=== PATIENT | female | born 1960 | race Caucasian/White ===

== ENCOUNTER 2023-06-12 08:22 | Outpatient (RCR) | payer BC, SELFPAY | END 2023-08-14 16:38 | disposition home or self-care (01) | LOC: PT 08:22 | PROVIDERS: PCP Nurse Practitioner; Visit Provider Nurse Practitioner | DX: M25.512 Pain in left shoulder (principal); M54.2 Cervicalgia | CPT/HCPCS: 97010; 97014; 97110; 97140; 97163 ==

== ENCOUNTER 2024-04-27 14:35 | Outpatient (OUT) | payer BC, SELFPAY ==
--- NOTE | 2024-04-27 | XR_ITS ---
The [address] [address] Patient Name: MEGHA CACERES MRN: [id number] date: 1960 Sex: F Assigned Patient Location: Current Patient Location: Accession/Order Number: [id number] Exam Date: 04/27/2024 14:39 Report Date: 04/27/2024 15:19 At the request of: AYANA FERRARO Procedure: XR foot RT min 3V PROCEDURE: XR foot RT min 3V COMPARISON: 11/22/2021 HISTORY: RIGHT FOOT PAIN FINDINGS: BONES:February 01 metatarsal-phalangeal joint fusion with no mechanical failure. Remote osteotomy and screw head of the second metatarsal. Moderate enthesopathic spurring Achilles and plantar calcaneus SOFT TISSUES:Negative. No visible soft tissue swelling. EFFUSION:None visible. OTHER: Negative. XR/XR foot RT min 3V IMPRESSION: Stable first metatarsal-phalangeal joint fusion Electronically authenticated by: ELIZABETH HENSLEY Date: 04/27/2024 15:19
--- OUTSIDE RECORDS SUMMARY | 2024-04-27 14:48 | XMS_ITS | CCD ---
Author Organization [facility] Care Team Providers Care Client Service Consultant Name Role Phone GUSTAVO, CHRISTOPHER W Unavailable Unavailab le GUSTAVO, CHRISTOPHER W Unavailable Unavailab le GUSTAVO, CHRISTOPHER W Unavailable Unavailab le GUSTAVO, CHRISTOPHER W Unavailable Unavailab le GUSTAVO, CHRISTOPHER W Unavailable Unavailab le GUSTAVO, CHRISTOPHER W Unavailable Unavailab le GUSTAVO, CHRISTOPHER W Unavailable Unavailab le GUSTAVO, CHRISTOPHER W Unavailable Unavailab le GUSTAVO, CHRISTOPHER W Unavailable Unavailab le GUSTAVO, CHRISTOPHER W Unavailable Unavailab le GUSTAVO, CHRISTOPHER W Unavailable Unavailab le GUSTAVO, CHRISTOPHER W Unavailable Unavailab le GUSTAVO, CHRISTOPHER W Unavailable Unavailab le GUSTAVO, CHRISTOPHER W Unavailable Unavailab le REAL, DR DELON Landry Admitting Unavailable ADDIE, DR DELON Landry Attending Unavailable ADDIE, DR DELON Landry Consulting Unavailable ADDIE, DR DELON Landry Primary Care Unavailable ADDIE, DR DELON Landry Admitting Unavailable ADDIE, DR DELON Landry Attending Unavailable ADDIE, DR DELON Landry Consulting Unavailable ADDIE, DR DELON Landry Primary Care Unavailable ADDIE, DR DELON Landry Primary Care Unavailable AYANA FERRARO Attending Unavailable SANBORN, DR ELIZABETH Castro Consulting Unavailable AYANA FERRARO Admitting Unavailable AYANA FERRARO Consulting Unavailable ADDIE, DR DELON Landry Primary Care Unavailable LAQUITA PITT Admitting Unavailable LAQUITA PITT Attending Unavailable ADDIE, DR DEOLN Landry Primary Care Unavailable JEANE, DR OLGA Bishop Admitting Unavailable JEANE, DR OLGA Bishop Attending Unavailable TESS ORTEGA Consulting Unavailable ADDIE, DR DELON Landry Primary Care Unavailable ADDIE, DR DELON Landry Admitting Unavailable ADDIE, DR DELON Landry Attending Unavailable ADDIE, DR DELON Landry Consulting Unavailable SISSY, DR SKYLAR Bishop Consulting Unavailable Clarisa Torres Attending Unavailable BrianClarisa lopez Attending Unavailable Allergies Allergy Classification Reported Allergen(s) Allergy Type Date of Onset Reaction(s) Facility (1 source) sulfamethoxazole / trimethoprim; Translations: [SULFAMETHOXAZOLE-TR IMETHOPRIM] Drug Allergy 5 [facility] Repository (2 sources) Sulfamethoxazole / Trimethoprim; Translations: [Bactrim] Drug Allergy 3 [facility] Repository Problems Active Problems Problem Classification Problem Date Documented Da te Episodic/Chronic Acquired foot deformities (2 sources) Hallux valgus (acquired), right foot; Translations: [Other hammer toe(s) (acquired), right foot] Onset: 01-14-2018 Chronic Other acquired deformities (1 source) Contracture, unspecified joint; Translations: [Contracture, unspecified joint] Onset: 01-14-2018 Chronic Other aftercare (1 source) Encounter for follow-up examination after completed treatment for conditions other than malignant neoplasm; Translations: [Encounter for follow-up examination after completed treatment for conditions other than malignant neoplasm] Onset: 05-15-2018 Episodic Other connective tissue disease (4 sources) Other muscle spasm; Translations: [OTHER MUSCLE SPASM] Onset: 08-28-2022 Episodic Unclassified (1 source) Pain, unspecified; Translations: [Pain, unspecified] Onset: 01-06-2018 Unclassified (1 source) Unknown / UNK(Unknown) Onset: 03-26-2018 Unclassified (3 sources) CONTACT W/AND (SUSP) EXPOS COVID-19; Translations: [CONTACT W/AND (SUSP) EXPOS COVID-19] Onset: 03-11-2022 Past or Other Problems Problem Classification Problem Date Documented Da te Episodic/Chronic Other acquired deformities (1 source) Unspecified acquired deformity of right lower leg; Translations: [Unspecified acquired deformity of right lower leg] Onset: 01-14-2018 Episodic Other connective tissue disease (1 source) Pain in right foot; Translations: [PAIN IN RIGHT FOOT] Onset: 11-26-2021 Episodic Other connective tissue disease (1 source) Pain in left foot; Translations: [PAIN IN LEFT FOOT] Onset: 11-26-2021 Episodic Other non-traumatic joint disorders (4 sources) Pain in right ankle and joints of right foot; Translations: [PAIN IN RIGHT ANKLE] Onset: 11-22-2021 Episodic Other non-traumatic joint disorders (1 source) Pain in left ankle and joints of left foot; Translations: [PAIN IN LEFT ANKLE] Onset: 11-26-2021 Episodic Other screening for suspected conditions (not mental disorders or infectious disease) (4 sources) Encounter for screening mammogram for malignant neoplasm of breast; Translations: [ENC SCR MAMMO MALIG NEOPLASM BREAST] Onset: 07-09-2022 Episodic Unclassified (1 source) CONTACT W/AND (SUSP) EXPOS COVID-19; Translations: [CONTACT W/AND (SUSP) EXPOS COVID-19] Onset: 03-08-2022 Results Test Name Value Interpretation Reference Range Facility Retail - Clinical Noteon Retail - Clinical Note [id number]#1.00TIFF Na[facility] Ambulatory Visit Summaryon 0 02-03-2024 Ambulatory Visit Summary LESA TORREZ :1960 Visit Date:02/03/2024 Ambulatory Visit Instructions Your Diagnosis Folliculitis BMI 24.0-24.9, adult Non-smoker Your Care Team Attending Physician - Clarisa Lane Primary Care Physician - Clarisa Lane This Is Your Medications List bisoprolol-hydrochlorothiazide (bisoprolol-hydrochlorothiazide 10 mg-6.25 mg Tab) cephalexin (Keflex 500 mg Cap) cetirizine (Zyrtec) polyethylene glycol 3350 (MiraLax) rizatriptan (rizatriptan 10 mg Dis Tab) semaglutide (Ozempic 8 mg/3 mL (2 mg dose) subcutaneous solution) Procedures Performed Foot injury, Hand repair, Laparoscopic cholecystostomy, Surgery. Discharge Vitals Heart Rate (Peripheral) 80 Respiratory Rate 18 Blood Pressure 104/78 Height 153.0 cm Height 60 in Weight 57.2 kg Weight 125.84 lb BMI 24.44 Medications What How Much When Why Instructions New cephalexin (Keflex 500 mg Cap) 1 Capsules By Mouth 2 times a day Folliculitis BMI 24.0-24.9, adult Non-smoker Duration: 10 Days Pickup at [facility]/pharmacy #[id number] Unchanged bisoprolol-hydrochlorothiazide (bisoprolol-hydrochlorothiazide 10 mg-6.25 mg Tab) 1 Tablets By Mouth Every day Unchanged cetirizine (Zyrtec) Unchanged polyethylene glycol 3350 (MiraLax) Unchanged rizatriptan (rizatriptan 10 mg Dis Tab) 1 Tablets Sublingual As Directed Unchanged semaglutide (Ozempic 8 mg/ 3 mL (2 mg dose) subcutaneous solution) 2 Milligram Subcutaneous Every week INJECT 2MG SUBCUTANEOUSLY ONCE A WEEK Pharmacy Information [facility]/pharmacy #[id number]: [address], [place] [phone] Allergies Bactrim (Unknown) Problems Ongoing - Any problem that you are currently receiving treatment for. Actinic keratosis Allergic rhinitis Anemia BMI 28.0-28.9,adult Cervical spondylosis Contact dermatitis due to rhus toxicodendron Folliculitis Hypertension Lumbar radiculopathy Migraines Non-smoker Obesity Pleurisy Sinusitis Vertigo Patient Survey You may receive a survey via text or e-mail asking about your office visit. Please share your experience with us by completing your survey. We appreciate your feedback and thank you for choosing us for your care. Normal Duran [facility] Family Medicine Office/Clini c Noteon 02-03-2024 Family Medicine Office/Clinic Note HPI Staff Lesa is 63 year old female presenting for acute visit Duration: 5 days ago Location: right groin Rash symptoms: tender to touch, warm pt states it started out as a pimple and now it is red around with scab over it, warm to touch denies any drainage History of Present Illness pt presents with bump in right side of pubic area Review of Systems PHQ Score Initial Depression Screen Score: 0 SCORE Physical Exam Vitals & Measurements HR: 80(Peripheral) RR: 18 BP: 104/78 HT: 60 in HT: 153.0 cm WT: 57.2 kg WT: 125.84 lb BMI: 24.44 General: alert, no acute distress ENMT: oral mucosa moist, no pharyngeal erythema or exudate Cardiovascular: regular rate and rhythm, normal peripheral perfusion Respiratory: Lungs CTA, respirations non labored Extremities: no deformity, no trauma Neurological: oriented x 4, LOC appropriate for age, CN II-XII intact, motor strength equal & normal bilaterally, speech normal small pea dime sized abscess, red raised warm to touch. no oozing Assessment/Plan 1. Folliculitis (L73.9: Follicular disorder, unspecified) pt has small abscessed hair follicle in upper pubic area. area is red and swollen and warm to touch. pt will use warm compresses TID and keflex will be sent to pharmacy. Ordered: cephalexin, 500 mg = 1 cap(s), Oral, BID, X 10 day(s), # 20 cap(s), Refills(s) 0, [id number], cm, 02/03/24 15:16:00 EDT, Height/Length Dosing, 57.2, kg, 02/03/24 15:16:00 EDT, Weight Dosing 2. BMI 24.0-24.9, adult (Z68.24: Body mass index [BMI] 24.0-24.9, adult) BMI education complete Ordered: cephalexin, 500 mg = 1 cap(s), Oral, BID, X 10 day(s), # 20 cap(s), Refills(s) 0, Pharmacy: [facility]/pharmacy #[id number], 153, cm, 02/03/24 15:16:00 EDT, Height/Length Dosing, 57.2, kg, 02/03/24 15:16:00 EDT, Weight Dosing 3. Non-smoker (Z78.9: Other specified health status) continue not smoking Ordered: cephalexin, 500 mg = 1 cap(s), Oral, BID, X 10 day(s), # 20 cap(s), Refills(s) 0, Pharmacy: [facility]/pharmacy #[id number], 153, cm, 02/03/24 15:16:00 EDT, Height/Length Dosing, 57.2, kg, 02/03/24 15:16:00 EDT, Weight Dosing Orders: tizanidine, 2 mg = 1 tab(s), Oral, Bedtime, # 30 tab(s), Refills(s) 0, Pharmacy: [facility]/pharmacy #[id number], 153, cm, 03/13/23 13:19:00 EDT, Height/Length Dosing, 66.1, kg, 03/13/23 13:19:00 EDT, Weight Dosing Follow-up No qualifying data available Problem List/Past Medical History Ongoing Actinic keratosis Allergic rhinitis Anemia BMI 28.0-28.9,adult Cervical spondylosis Contact dermatitis due to rhus toxicodendron Folliculitis Hypertension Lumbar radiculopathy Migraines Non-smoker Obesity Pleurisy Sinusitis Vertigo Historical No qualifying data Procedure/Surgical History Foot injury, Hand repair, Laparoscopic cholecystostomy, Surgery. Medications bisoprolol-hydrochlorothiazide 10 mg-6.25 mg Tab, 1 tab(s), Oral, Daily, 1 refills Keflex 500 mg Cap, 500 mg= 1 cap(s), Oral, BID MiraLax Ozempic 8 mg/3 mL (2 mg dose) subcutaneous solution, 2 mg, SubCutaneous, qWeek, 1 refills rizatriptan 10 mg Dis Tab, 10 mg= 1 tab(s), SubLingual, As Directed Zyrtec Allergies Bactrim (Unknown) Social History Tobacco Never (less than 100 in lifetime) Tobacco Use:. Never Smokeless Tobacco Use:. Household tobacco concerns: No., 02/03/2024 Family History Heart disease: Father. Hypertension: Mother and Father. Sleep apnea: Father. Immunizations Vaccine Date Status SARS-CoV-2 (COVID-19) mRNA-1273 vaccine 08/24/2021 Recorded SARS-CoV-2 (COVID-19) mRNA-1273 vaccine 11/30/2020 Recorded SARS-CoV-2 (COVID-19) mRNA-1273 vaccine 11/01/2020 Recorded influenza virus vaccine, inactivated 08/16/2019 Recorded Normal [facility] Comment on above: Result Comment: Elec tronically Signed By: Clarisa Lane\.br\Date and Time Signed: 02/03/24 15:31 EDT Consultation Noteon 11-28-19 Consultation Note [id number]#[id number] Normal [facility] Family Medicine Office/Clini c Noteon 10-22-2023 Family Medicine Office/Clinic Note HPI Staff Lesa is a 63 year old female presenting for acute sick visit Respiratory C/O: Onset: 3 days ago Body aches: no Chest congestion: no Chills: no Cough: yes Sputum production: no Sore throat: slightly sore Ear complaints: yes When swallowing Eye itching/watering: no Fever: no Headache: yes Nasal congestion: yes Nasal discharge: yes and post nasal drip Poor appetite: no Reduced activity: no Sinus pain/pressure: yes Sneezing: yes Wheezing: no Ill contacts: no Remedies tried: Questions/Concerns: pt called off work on Friday and today pt stopped taking blood pressure medication 1 week ago due to losing weight and was seeing if she could be off medication. At home reading pt is getting 128/82 would like to discuss if she could keep a log . History of Present Illness pt presents today with URI symptoms Review of Systems PHQ Score Initial Depression Screen Score: 0 SCORE ROS - Provider Constitutional: no fever, no chills, no sweats, no fatigue Respiratory: no shortness of breath, no cough, no orthopnea, no wheezing.nasal congestion, ear pain Cardiovascular: no chest pain, no palpitations, no edema. Neurologic: no headache, no dizziness, no numbness, no weakness. Physical Exam Vitals & Measurements HR: 84(Peripheral) RR: 18 BP: 132/88 SpO2: 99% HT: 60 in HT: 153 cm WT: 67.10 kg WT: 147.62 lb BMI: 28.66 General: alert, no acute distress ENMT: oral mucosa moist, no pharyngeal erythema or exudate sinus tenderness, OANH TM red Cardiovascular: regular rate and rhythm, normal peripheral perfusion Respiratory: Lungs CTA, respirations non labored Extremities: no deformity, no trauma Neurological: oriented x 4, LOC appropriate for age, CN II-XII intact, motor strength equal & normal bilaterally, speech normal Assessment/Plan 1. Sinusitis (J32.9: Chronic sinusitis, unspecified) pt presents today with ear pain , nasal congestion. sinus tenderness noted. OANH TM red and clear fluid noted. all questions answered. RTC as needed Ordered: cefuroxime, 500 mg = 1 tab(s), Oral, BID, X 7 day(s), # 14 tab(s), Refills(s) 0, Pharmacy: [facility]/pharmacy #[id number], 153, cm, 10/22/23 14:22:00 EST, Height/Length Dosing, 67.1, kg, 10/22/23 14:22:00 EST, Weight Dosing methylPREDNISolone, = 1 packet(s), Oral, As Directed, as directed on package labeling, X 6 day(s), # 21 tab(s), Refills(s) 0, Pharmacy: [facility]/pharmacy #[id number], 153, cm, 10/22/23 14:22:00 EST, Height/Length Dosing, 67.1, kg, 10/22/23 14:22:00 EST, Weight Dosing 2. Hypertension (I10: Essential (primary) hypertension) pt states she stopped taking BP med and will monitor her BP. if it starts to go back up , she will start taking meds again 3. BMI 28.0-28.9,adult (Z68.28: Body mass index [BMI] 28.0-28.9, adult) BMI education complete Ordered: cefuroxime, 500 mg = 1 tab(s), Oral, BID, X 7 day(s), # 14 tab(s), Refills(s) 0, [id number] 153, cm, 10/22/23 14:22:00 EST, Height/Length Dosing, 67.1, kg, 10/22/23 14:22:00 EST, Weight Dosing methylPREDNISolone, = 1 packet(s), Oral, As Directed, as directed on package labeling, X 6 day(s), # 21 tab(s), Refills(s) 0, [id number], 153, cm, 10/22/23 14:22:00 EST, Height/Length Dosing, 67.1, kg, 10/22/23 14:22:00 EST, Weight Dosing 4. Non-smoker (Z78.9: Other specified health status) continue not smoking Ordered: cefuroxime, 500 mg = 1 tab(s), Oral, BID, X 7 day(s), # 14 tab(s), Refills(s) 0, [id number], 153, cm, 10/22/23 14:22:00 EST, Height/Length Dosing, 67.1, kg, 10/22/23 14:22:00 EST, Weight Dosing methylPREDNISolone, = 1 packet(s), Oral, As Directed, as directed on package labeling, X 6 day(s), # 21 tab(s), Refills(s) 0, Pharmacy: [facility]/pharmacy #[id number], 153, cm, 10/22/23 14:22:00 EST, Height/Length Dosing, 67.1, kg, 10/22/23 14:22:00 EST, Weight Dosing Follow-up No qualifying data available Problem List/Past Medical History Ongoing Actinic keratosis Allergic rhinitis Anemia BMI 28.0-28.9,adult Cervical spondylosis Contact dermatitis due to rhus toxicodendron Hypertension Lumbar radiculopathy Migraines Non-smoker Obesity Pleurisy Sinusitis Vertigo Historical No qualifying data Procedure/Surgical History Foot injury, Hand repair, Laparoscopic cholecystostomy, Surgery. Medications bisoprolol-hydrochlorothiazide 10 mg-6.25 mg Tab, 1 tab(s), Oral, Daily, 1 refills, Not taking: pt states stopped taking a week ago cefuroxime 500 mg oral tablet, 500 mg= 1 tab(s), Oral, BID Medrol 4 mg Tab, 1 packet(s), Oral, As Directed MiraLax Ozempic 8 mg/3 mL (2 mg dose) subcutaneous solution, 2 mg, SubCutaneous, qWeek, 1 refills rizatriptan 10 mg Dis Tab, 10 mg= 1 tab(s), SubLingual, As Directed tiZANidine 2 mg Tab, 2 mg= 1 tab(s), Oral, Bedtime Zyrtec Allergies Bactrim (Unknown) Social History Tobacco Never (less than 100 in lifetime) Tobacco Use:. Never Smokeless Tobacco Use:. Household tobacco concerns: No., 10/22/2023 (more content not included)... [facility] Comment on above: Result Comment: Elec tronically Signed By: Clarisa Lane\.br\Date and Time Signed: 10/22/23 15:25 EST Provider Letteron 10-22-2023 Provider Letter (Inserted Image. Bebe ble to display) October 22, 2023 LESA TORREZ [address] [place] [id number] : 1960 To Whom It May Concern, Please excuse above patient from work. Date of Illness: From: 21 October 2023 To: 22 October 2023 May Return to Work On: 24 October 2023 Restrictions: None Comments: Please call the office with any questions Sincerely, Family Medicine [address] [address] [facility] Consultation Noteon 09-04-20 Consultation Note [id number] [facility] PT - Progress Noteson 2022 PT - Progress Notes [id number]#1.00CD:127 [facility] Retail - Clinical Noteon Retail - Clinical Note [id number]#1.00CD:127 [facility] Consultation Noteon 07-17-20 Consultation Note [id number]#1.00CD:127 [facility] Formson 07-10-2023 Forms [id number]#1.00CD:127 [facility] PT - Progress Noteson 2022 PT - Progress Notes [id number]#1.00CD:127 [facility] PT - Progress Noteson 2022 PT - Progress Notes [id number]#1.00CD:127 [facility] Physician Orderon 06-05-2023 Physician Order [id number]#1.00CD:127 [facility] Physician Order [id number]#1.00CD:127 [facility] Retail - Clinical Noteon Retail - Clinical Note [id number]#1.00CD:127 [facility] Consultation Noteon 05-27-20 Consultation Note [id number]#1.00CD:127 [facility] Pre-Certification Formon Pre-Certification Form [id number]#1.00CD:127 Normal [facility] CBC AUTO DIFFon 11-04-2022 BASO # 0.0 103/ul Normal 0.0-0.1 [facility] Comment on above: Performed By: #### C BC #### [facility] [address] [address] [address] Sae Chapman Basophils/100 WBC (Bld) 0.4 % Normal 0.2-2.0 [facility] Comment on above: Performed By: #### C BC #### [facility] [address] [address] [address] Sae Chapman EO # 0.1 103/ul Normal 0.0-0.7 [facility] Comment on above: Performed By: #### C BC #### [facility] [address] [address] [address] Sae Chapman Eosinophils/100 WBC (Bld) 1.1 % Normal 0.9-7.0 [facility] Comment on above: Performed By: #### C BC #### [facility] [address] [address] [address] Sae Chapman Erythrocyte distribution width (RBC) [Ratio] 12.8 % Normal 11.0-15.0 [facility] Comment on above: Performed By: #### C BC #### [facility] [address] [address] [address] Sae Chapman Hematocrit (Bld) [Volume fraction] 45.0 % Normal 36.0-48.0 [facility] Comment on above: Performed By: #### C BC #### [facility] [address] [address] [address] Sae Chapman Hemoglobin (Bld) [Mass/Vol] 15.4 g/dL Normal 12.0-16.0 [facility] Comment on above: Performed By: #### C BC #### [facility] [address] [address] [address] Sae Chapman IG # 0.02 10e3/ul Normal 0.00-0.03 [facility] Comment on above: Performed By: #### C BC #### [facility] [address] [place] [address] Dr. Sae Chapman IG % 0.2 % Normal 0.0-0.5 [facility] Comment on above: Performed By: #### C BC #### [facility] [address] [place] [address] Dr. Sae Chapman LYMPH # 1.4 103/ul Normal 1.2-3.8 [facility] Comment on above: Performed By: #### C BC #### [facility] [address] [place] [address] Dr. Sae Chapman Lymphocytes/100 WBC (Bld) 12.6 % Critically low 20.5-60.0 [facility] Comment on above: Performed By: #### C BC #### [facility] [address] [place] [address] Dr. Sae Chapman MANUAL DIFF REQ NO Normal [facility] Comment on above: Performed By: #### C BC #### [facility] [address] [place] [address] Dr. Sae Chapman MCH (RBC) [Entitic mass] 30.0 pg Normal 26.7-34.0 [facility] Comment on above: Performed By: #### C BC #### [facility] [address] [place] [address] Dr. Sae Chapman MCHC (RBC) [Mass/Vol] 34.2 g/dL Normal 29.9-35.2 [facility] Comment on above: Performed By: #### C BC #### [facility] [address] [place] [address] Dr. Sae Chapman MCV (RBC) [Entitic vol] 87.7 fL Normal 81.0-99.0 [facility] Comment on above: Performed By: #### C BC #### [facility] [address] [place] [address] Dr. Sae Chapman MONO # 0.7 103/ul Normal 0.3-0.8 [facility] Comment on above: Performed By: #### C BC #### [facility] [address] [place] [address] Dr. Sae Chapman Monocytes/100 WBC (Bld) 6.2 % Normal 1.7-12.0 [facility] Comment on above: Performed By: #### C BC #### [facility] [address] [place] [address] Dr. Sae Chapman NEUT # 8.5 103/ul Critically high 1.4-6.5 [facility] Comment on above: Performed By: #### C BC #### [facility] [address] [place] [address] Dr. Sae Chapman Neutrophils/100 WBC (Bld) 79.5 % Critically high 43.0-75.0 [facility] Comment on above: Performed By: #### C BC #### [facility] [address] [place] [address] Dr. Sae Chapman Platelet mean volume (Bld) [Entitic vol] 9.1 fL Critically low 9.5-13.5 [facility] Comment on above: Performed By: #### C BC #### [facility] [address] [place] [address] Dr. Sae Chapman PLT 259 103/ul Normal 150-450 [facility] Comment on above: Performed By: #### C BC #### [facility] [address] [place] [address] Dr. Sae Chapman RBC 5.13 106/ul Normal 4.20-5.40 [facility] Comment on above: Performed By: #### C BC #### [facility] [address] [place] [address] Dr. Sae Chapman WBC 10.7 103/ul Normal 4.0-11.0 [facility] Comment on above: Performed By: #### C BC #### [facility] [address] [place] [address] Dr. Sae Chapman PROF CHEM 8 (BAS METB)on Anion gap [Moles/Vol] 13.6 mmol/L Normal [facility] Comment on above: Performed By: #### B MP #### [facility] [address] [place] [address] Dr. Sae Chapman Calcium [Mass/Vol] 9.8 mg/dL Normal 8.5-10.1 [facility] Comment on above: Performed By: #### B MP #### [facility] [address] [address] [address] Sae Chapman Chloride [Moles/Vol] 100 mmol/L Normal 98-107 [facility] Comment on above: Performed By: #### B MP #### [facility] [address] [address] [address] Sae Chapman CO2 [Moles/Vol] 29.2 mmol/L Normal 21.0-32.0 [facility] Comment on above: Performed By: #### B MP #### [facility] [address] [place] [address] Dr. Sae Chapman Creatinine [Mass/Vol] 0.99 mg/dL Normal 0.55-1.02 [facility] Comment on above: Performed By: #### B MP #### [facility] [address] [address] [address] Sae Chapman EGFR-AF MEXICAN >60 Normal >=60 [facility] Comment on above: Performed By: #### B MP #### [facility] [address] [place] [address] Dr. Sae Chapman EGFR-NON AF MEXICAN 56 mL/min/1.73m2 Critically low >=60 [facility] Comment on above: Performed By: #### B MP #### [facility] [address] [address] [address] Sae Chapman Glucose [Mass/Vol] 143 mg/dL Critically high 74-106 [facility] Comment on above: Performed By: #### B MP #### [facility] [address] [address] [address] Sae Chapman Potassium [Moles/Vol] 3.8 mmol/L Normal 3.5-5.1 [facility] Comment on above: Performed By: #### B MP #### [facility] [address] [address] [address] Sae Chapman Sodium [Moles/Vol] 139 mmol/L Normal 136-145 [facility] Comment on above: Performed By: #### B MP #### [facility] [address] [place], [place] [address] Dr. Sae Chapman Urea nitrogen [Mass/Vol] 15.0 mg/dL Normal 7.0-18.0 [facility] Comment on above: Performed By: #### B MP #### [facility] [address] [place], [place] [address] Dr. Sae Chapman Urea nitrogen/Creatini ne [Mass ratio] 15.2 mg/mg Normal [facility] Comment on above: Performed By: #### B MP #### [facility] [address] [place], [place] [address] Dr. Sae Chapman MG MAMM SCREEN 3D OANH CADon 07-09-2022 MG MAMM SCREEN 3D OANH CAD Patient: LESA TORREZ Exam Date: 07/09/2022 : 1960 Gender:F Ordering : DR DELON REAL . Admission #: [id number] Family : Order #: [id number] CLICK HERE TO VIEW EXAM RADIOLOGY REPORT PROCEDURE: MAMMOGRAM SCREENING 3D BILATERAL CAD COMPARISON: MG MAMM SCREEN 3D OANH CAD, 05/30/2021. MG MAMM SCREEN OANH W CAD, 10/06/2018. INDICATIONS: Screening mammography Calculator Name NCI Breast Cancer Risk Assessment Tool 5 Year Breast Cancer Risk 1.80% Lifetime Breast Cancer Risk 7.20% Personal Breast Cancer No Personal Ovarian Cancer No Treatments None Family Cancers None LOCATION: [facility] BREAST COMPOSITION: Heterogeneously dense,which may obscure small masses. FINDINGS: DIAGNOSTIC CATEGORY 1--NEGATIVE. RIGHT BREAST: No significant suspicious finding. No significant change has occurred. LEFT BREAST: No significant suspicious finding. No significant change has occurred. RECOMMENDATIONS: ROUTINE MAMMOGRAM AND CLINICAL EVALUATION IN 12 MONTHS. PLEASE NOTE: A NORMAL MAMMOGRAM DOES NOT EXCLUDE THE POSSIBILITY OF BREAST CANCER. A CLINICALLY SUSPICIOUS PALPABLE LUMP SHOULD BE BIOPSIED. Dictated by: Skylar Grossman M.D. on 07/10/2022 at 10:33 Approved by: Skylar Grossman M.D. on 07/10/2022 at 10:35 Normal [facility] CBC AUTO DIFFon 06-18-2022 BASO # 0.0 103/ul Normal 0.0-0.1 [facility] Comment on above: Performed By: #### C BC ####[facility] [address] [place], [place] [address]Dr. Sae Chapman Basophils/100 WBC (Bld) 0.6 % Normal 0.2-2.0 [facility] Comment on above: Performed By: #### C BC ####[facility] [address] [place], [place] [address]Dr. Sae Chapman EO # 0.2 103/ul Normal 0.0-0.7 [facility] Comment on above: Performed By: #### C BC ####[facility] [address] [place], [place] [address]Dr. Sae Chapman Eosinophils/100 WBC (Bld) 3.3 % Normal 0.9-7.0 [facility] Comment on above: Performed By: #### C BC ####[facility] [address] [place], [place] [address]Dr. Sae Chapman Erythrocyte distribution width (RBC) [Ratio] 12.7 % Normal 11.0-15.0 [facility] Comment on above: Performed By: #### C BC ####[facility] [address] [place], [place] [address]Dr. Sae Chapman Hematocrit (Bld) [Volume fraction] 42.2 % Normal 36.0-48.0 [facility] Comment on above: Performed By: #### C BC ####[facility] [address] [place], [place] [address]Dr. Sae Chapman Hemoglobin (Bld) [Mass/Vol] 14.2 g/dL Normal 12.0-16.0 [facility] Comment on above: Performed By: #### C BC ####[facility] [address] [place], [place] [address]Dr. Sae Chapman IG # 0.00 10e3/ul Normal 0.00-0.03 [facility] Comment on above: Performed By: #### C BC ####[facility] [address] [place], [place] [address]Dr. Sae Chapman IG % 0.0 % Normal 0.0-0.5 [facility] Comment on above: Performed By: #### C BC ####[facility] [address] [address]DrGabrielle Sae Ari LYMPH # 1.6 103/ul Normal 1.2-3.8 [facility] Comment on above: Performed By: #### C BC ####[facility] [address] [address]DrGabrielle Sae Ari Lymphocytes/100 WBC (Bld) 29.8 % Normal 20.5-60.0 [facility] Comment on above: Performed By: #### C BC ####[facility] [address] [place], [place] [address]DrGabrielle Jackideirdre Chapman MANUAL DIFF REQ NO Normal [facility] Comment on above: Performed By: #### C BC ####[facility] [address] [place], [place] [address]DrGabrielle Jackideirdre Chapman MCH (RBC) [Entitic mass] 30.5 pg Normal 26.7-34.0 [facility] Comment on above: Performed By: #### C BC ####[facility] [address] [place], [place] [address]Dr. Sae Ari MCHC (RBC) [Mass/Vol] 33.6 g/dL Normal 29.9-35.2 [facility] Comment on above: Performed By: #### C BC ####[facility] [address] [place], [place] [address]DrGabrielle Jackideirdre Chapman MCV (RBC) [Entitic vol] 90.6 fL Normal 81.0-99.0 [facility] Comment on above: Performed By: #### C BC ####[facility] [address] [place], [place] [address]DrGabrielle Chapman MONO # 0.5 103/ul Normal 0.3-0.8 [facility] Comment on above: Performed By: #### C BC ####[facility] [address] [place], [place] [address]DrGabrielle Chapman Monocytes/100 WBC (Bld) 8.6 % Normal 1.7-12.0 [facility] Comment on above: Performed By: #### C BC ####[facility] [address] [address]DrGabrielle Chapman NEUT # 3.0 103/ul Normal 1.4-6.5 [facility] Comment on above: Performed By: #### C BC ####[facility] [address] [address]DrGabrielle Chapman Neutrophils/100 WBC (Bld) 57.7 % Normal 43.0-75.0 [facility] Comment on above: Performed By: #### C BC ####[facility] [address] [address]DrGabrielle Chapman Platelet mean volume (Bld) [Entitic vol] 9.1 fL Critically low 9.5-13.5 [facility] Comment on above: Performed By: #### C BC ####[facility] [address] [address]Dr. Sae Chapman PLT 254 103/ul Normal 150-450 [facility] Comment on above: Performed By: #### C BC ####[facility] [address] [address]DrGabrielle Chapman RBC 4.66 106/ul Normal 4.20-5.40 [facility] Comment on above: Performed By: #### C BC ####[facility] [address] [address]DrGabrielle Chapman WBC 5.2 103/ul Normal 4.0-11.0 [facility] Comment on above: Performed By: #### C BC ####[facility] [address] [id number] Chapman GLYCOHEMOGLOBIN A1Con 2021 ADA RECOMMENDATION SEE BELOW Normal [facility] Comment on above: Result Comment: ADA RECOMMENDED LIMIT 4.0 - 6.0 ADA THERAPEUTIC TARGET < 7.0 ACTION SUGGESTED > 7.0 Performed By: #### A 1C #### [facility] [address] [address] [address] Sae Chapman Glucose [Mass/Vol] 103 mg/dL Normal [facility] Comment on above: Performed By: #### A 1C #### [facility] [address] [address] [address] Sae Chapman HbA1c (Bld) [Mass fraction] 5.2 % Normal 4.5-6.2 [facility] Comment on above: Performed By: #### A 1C #### [facility] [address] [address] [address] Sae Chapman LIPID PROFILEon 06-18-2022 CHOL-HDL RATIO NORM SEE BELOW Normal [facility] Comment on above: Result Comment: 3.3 - 4.4 LOW RISK 4.4 - 7.1 AVERAGE RISK 7.1 - 11.0 MODERATE RISK >11.0 HIGH RISK Performed By: #### C MP, LIPID, TSH #### [facility] [address] [place] [address] Dr. Sae Chapman Cholesterol [Mass/Vol] 178 mg/dL Normal <=200 [facility] Comment on above: Performed By: #### C MP, LIPID, TSH #### [facility] [address] [address] [address] Sae Chapman Cholesterol in HDL [Mass/Vol] 41 mg/dL Normal 40-60 [facility] Comment on above: Performed By: #### C MP, LIPID, TSH #### [facility] [address] [address] [address] Sae Chapman Cholesterol in LDL [Mass/Vol] 101.6 mg/dL Normal [facility] Comment on above: Performed By: #### C MP, LIPID, TSH #### [facility] [address] [address] [address] Sae Chapman Cholesterol.total /Cholesterol in HDL [Mass ratio] 4.3 {ratio} Normal [facility] Comment on above: Performed By: #### C MP, LIPID, TSH #### [facility] [address] [address] [address] Sae Chapman HDL NORMAL > or = 60 mg/dl - LO W CARDIOVASCULAR RISK <40 mg/dl - HIGH CARDIOVASCULAR RISK Normal [facility] Comment on above: Performed By: #### C MP, LIPID, TSH #### [facility] [address] [address] [address] Sae Chapman LDL CALC NORMAL SEE BELOW Normal [facility] Comment on above: Result Comment: <100 mg/dl OPTIMAL 100 - 129 mg/dl NEAR OR ABOVE OPTIMAL 130 - 159 mg/dl BORDERLINE HIGH 160 - 189 mg/dl HIGH >190 mg/dl VERY HIGH Performed By: #### C MP, LIPID, TSH #### [facility] [address] [address] [address] Sae Chapman Triglyceride [Mass/Vol] 177 mg/dL Critically high <=150 [facility] Comment on above: Performed By: #### C MP, LIPID, TSH #### [facility] [address] [place] [address] Dr. Sae Chapman VLDL CALC 35.4 mg/dL Normal [facility] Comment on above: Performed By: #### C MP, LIPID, TSH #### [facility] [address] [address] [address] Sae Chapman PROF 14(COMP METB)on 022 Albumin [Mass/Vol] 3.9 g/dL Normal 3.4-5.0 [facility] Comment on above: Performed By: #### C MP, LIPID, TSH #### [facility] [address] [place] [address] Dr. Sae Chapman Albumin/Globulin [Mass ratio] 1.3 {ratio} Normal [facility] Comment on above: Performed By: #### C MP, LIPID, TSH #### [facility] [address] [address] [address] Sae Chapman ALP [Catalytic activity/Vol] 58 U/L Normal 46-116 [facility] Comment on above: Performed By: #### C MP, LIPID, TSH #### [facility] [address] [address] [address] Sae Chapman ALT [Catalytic activity/Vol] 23 U/L Normal 14-59 [facility] Comment on above: Performed By: #### C MP, LIPID, TSH #### [facility] [address] [address] [address] Sae Chapman Anion gap [Moles/Vol] 10.8 mmol/L Normal [facility] Comment on above: Performed By: #### C MP, LIPID, TSH #### [facility] [address] [address] [address] Sae Chapman AST [Catalytic activity/Vol] 16 U/L Normal 15-37 [facility] Comment on above: Performed By: #### C MP, LIPID, TSH #### [facility] [address] [place] [address] Dr. Sae Chapman Bilirubin [Mass/Vol] 0.4 mg/dL Normal 0.2-1.0 [facility] Comment on above: Performed By: #### C MP, LIPID, TSH #### [facility] [address] [place] [address] Dr. Sae Chapman Calcium [Mass/Vol] 9.1 mg/dL Normal 8.5-10.1 [facility] Comment on above: Performed By: #### C MP, LIPID, TSH #### [facility] [address] [place] [address] Dr. Sae Chapman Chloride [Moles/Vol] 102 mmol/L Normal 98-107 [facility] Comment on above: Performed By: #### C MP, LIPID, TSH #### [facility] [address] [place] [address] Dr. Sae Chapman CO2 [Moles/Vol] 30.0 mmol/L Normal 21.0-32.0 [facility] Comment on above: Performed By: #### C MP, LIPID, TSH #### [facility] [address] [place] [address] Dr. Sae Chapman Creatinine [Mass/Vol] 0.93 mg/dL Normal 0.55-1.02 [facility] Comment on above: Performed By: #### C MP, LIPID, TSH #### [facility] [address] [place] [address] Dr. Sae Chapman EGFR-AF MEXICAN >60 Normal >=60 [facility] Comment on above: Performed By: #### C MP, LIPID, TSH #### [facility] [address] [address] [address] Sae Chapman EGFR-NON AF MEXICAN >60 Normal >=60 [facility] Comment on above: Performed By: #### C MP, LIPID, TSH #### [facility] [address] [address] [address] Sae Chapman Globulin (S) [Mass/Vol] 3.1 g/dL Normal [facility] Comment on above: Performed By: #### C MP, LIPID, TSH #### [facility] [address] [address] [address] Sae Chapman Glucose [Mass/Vol] 97 mg/dL Normal 74-106 [facility] Comment on above: Performed By: #### C MP, LIPID, TSH #### [facility] [address] [place] [address] Dr. Sae Chapman Potassium [Moles/Vol] 3.8 mmol/L Normal 3.5-5.1 [facility] Comment on above: Performed By: #### C MP, LIPID, TSH #### [facility] [address] [address] [address] Sae Chapman Protein [Mass/Vol] 7.0 g/dL Normal 6.4-8.2 [facility] Comment on above: Performed By: #### C MP, LIPID, TSH #### [facility] [address] [address] [address] Sae Chapman Sodium [Moles/Vol] 139 mmol/L Normal 136-145 [facility] Comment on above: Performed By: #### C MP, LIPID, TSH #### [facility] [address] [address] [address] Sae Chapman Urea nitrogen [Mass/Vol] 13.0 mg/dL Normal 7.0-18.0 [facility] Comment on above: Performed By: #### C MP, LIPID, TSH #### [facility] [address] [address] [address] Sae Chapman Urea nitrogen/Creatini ne [Mass ratio] 14.0 mg/mg Normal [facility] Comment on above: Performed By: #### C MP, LIPID, TSH #### [facility] [address] [place] [address] Dr. Sae Chapman TSHon 06-18-2022 TSH 1.156 uIU/mL Normal 0.358-3.74 0 [facility] Comment on above: Performed By: #### C MP, LIPID, TSH #### [facility] [address] [place] [address] Dr. Sae Chapman ASYMPTOMATIC COVID-19 ANTIGE Non 03-08-2022 EUA Statement SEE BELOW Normal [facility] Comment on above: Result Comment: This test has not been FDA cleared or approved, but has been authorized by the FDA under an Emergency Use Authorization (EUA) for use by authorized laboratories certified under CLIA that meet the requirements to perform moderate or high complexity testing. This test has been authorized only for the detection of proteins from SARS-CoV-2, not for any other viruses or pathogens. The emergency use of this test is authorized for the duration of the declaration that circumstances exist justifying the authorization of emergency use of in vitro diagnostic tests for detection and/or diagnosis of Covid-19 under section 564(b)(1) of the Act, 21 U.S.C. 360bbb-3(b)(1), unless the declaration is terminated or authorization is revoked sooner. Performed By: #### C VDAGA #### [facility] [address] [place] [address] Dr. Sae Chapman SARS-CoV-2 (COVID-19) RNA REMIGIO+probe Ql (Unsp spec) Negative Normal NEGATIVE [facility] Comment on above: Result Comment: Nega tive results are presumptive. They do not preclude infection and should not be used as the sole basis for treatment decisions. Additional confirmatory testing by a molecular method should be considered. Performed By: #### C VDAGA #### [facility] [address] [place] [address] Dr. Sae Chapman XR ANKLE OANH MIN 3 VIEWSon 0 11-22-2021 XR ANKLE OANH MIN 3 VIEWS EXAMINATION: XR FOOT OANH MIN 3 VIEWS, XR ANKLE OANH MIN 3 VIEWS HISTORY: Pain in both feet COMPARISON: 08/27/2020 FINDINGS: RIGHT FINDINGS: BONES: No acute fracture or dislocation of the foot or ankle. Stable fusion first metatarsal phalangeal joint with a dorsal plate and multiple screws. Prior osteotomy placement of a single screw across the second metatarsal. Likely remote resection head of the fifth proximal phalanx. Fusion of the second proximal interphalangeal joint. Contour deformity of the fifth metatarsal head suggests prior osteotomy. Moderate enthesopathic spurring of the calcaneus SOFT TISSUES: Negative. No visible soft tissue swelling. OTHER: Negative. LEFT FINDINGS: BONES: No acute fracture or dislocation. Stable fusion first metatarsal-phalangeal joint with a dorsal plate and multiple screws. Single prosthetic across the second third and fourth proximal interphalangeal joints with stable fracture of the second toe prosthesis. Contour deformity and screw through the fifth metatarsal head consistent with remote osteotomy. Degenerative changes with postsurgical changes to the second metatarsal phalangeal joint. Moderate enthesopathic spurring of the calcaneus. SOFT TISSUES: Negative. No visible soft tissue swelling. OTHER: Negative. IMPRESSION: RIGHT CONCLUSION: Stable postsurgical and degenerative changes LEFT CONCLUSION: Stable postsurgical and degenerative changes Electronically authenticated by: ELIZABETH HENSLEY Date: 2021-11-22 11:13 Normal [facility] CNCOon 06-15-2018 CNCO Letter TextChristoph BLAINE ThompsonMKOLCZUN [id number] [id number]: Gckrlt 2017Re: Lesa Torrez[address] [facility] [address]AEC: [id number] Whom It May Concern:This is to certify that Lesa Torrez has been under my care for her rightfoot. At this time I am extending her leave of absence due to the delayedremoval of two surgical pins from her right foot. These were removed on06/03/2018 and will require 6 weeks of further healing, gradual return to fullweightbearing, gradual return to regular shoe gear.Please extend her leave of absence through 07/14/2018. She may return to workwith no restrictions on 07/15/2018.If you have any questions or concerns, please do not hesitate to contact glenis at the number above.Thank you,Luis Penaectronically signed to expedite processing Normal [facility] CNOVon 06-03-2018 CNOV Office Visit (LOORRM) Balwinder TORREZ ([id number]) 1960 FDate Time Provider Department06/03/18 10:45 AM ELIO CHEN During your visit today, we recorded the following information about you:Elio Chen DPM 06/03/2018 11:04 AM SignedMedical intake sheet from June 02, 2018 , was updated by patient, reviewed, andwas made part of the patient's chart.JEFE Herndonubjective: Patient seen today for her third scheduled postop visit about 8weeks status post multiple procedures of the right forefoot without complaints.Objective:Patient seen today wearing a surgical shoe on the right foot. Upon removal:There is minimal edema and erythema of the surgical sites. Pedal pulse and caprefill within normalDerm: The incisions are well healed. The pin tracks unremarkable at tips oftoes 23 and 4 right. Ortho musculoskeletal: Patient has rectus plantigradehallux and lesser digits 2 through 5 with intact pin fixation without apparentsigns of complication at this time.Radiographs: 3 views the right foot reveal satisfactory alignment and healingwith intact fixationDiagnosis:Satisfactory postoperative progress right foot status approximately 8 weekswithout apparent signs of complications at this time appropriate for pin removalTreatment today:Scheduled postop visit right footRadiographs 3 views the right foot to assess arthrodesis sites position andhealingCleansed the tips of toes 2 through 4 with alcohol allowed to dry removed pinsto 3 and 4. Applied Betadine and Band-Aids. Should avoid showering and poolfor for a week.May progress back to regular shoes as tolerated and follow up when necessarysince should heal eventfullyAdvised to call if any questions or problems interimChrisGHAZAL Molinaeferring Provider: ELIO CHEN [[id number]]Allergies As of Date: 06/03/2018 Noted Allergy ReactionBACTRIM (SULFAMETHOXAZOLE-TRIMETH* 015 4 - HivesDate Reviewed: 06/03/2018Reviewed by: Ketty Robertson Clinical Tech - Fully AssessedReason for Visit: Post Op [174]Primary Visit Diagnosis:Follow-up examination following surgery [Z09] Other Visit Diagnoses:Hammer toe of right foot [M20.41] Metatarsal deformity, right [M21.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 BISOPROLOL 10 MG-HYDROCHLOROT* CALCIUM 500 MG TABLET Take 1 tablet by mouth twice * MULTIVITAMIN TABLET Take 1 tablet by mouth once d* LORATADINE 10 MG TABLET Take 10 mg by mouth once guzman* POLYETHYLENE GLYCOL 3350 17 G* Take 17 g by mouth once daily. RIZATRIPTAN 10 MG TABLET Take 10 mg by mouth as needed* HRLKNDF-TMQURMKUBRQLK-XKKPHZV* Take 1 tablet by mouth every * NAPROXEN SODIUM 220 MG TABLET Take 220 mg by mouth as neede*Problem List As Of Date 06/03/2018 Noted Resolved Hallux abductovalgus with bunions [M20.10, M21.*INVALID FOR* Hammertoe [M20.40] INVALID FOR* Hav (hallux abducto valgus), right [M20.11] INVALID FOR* More... Deformity of metatarsal, right [M21.961] INVALID FOR* More... Contracted, joint [M24.50] INVALID FOR* More... Hammer toe of right foot [M20.41] INVALID FOR* More... HTN (hypertension) [I10] Migraines [G43.909] Status:Closed by KETTY JIMENEZ on 06/03/18 Normal [facility] PROGRESSon 06-03-2018 Protein mass conc HNO ID: [id number] thor: Rafi (Rt) Shyanne Hilton: (none)Author Type: TechnicianType: Progress NotesFiled: 06/03/2018 10:32 AMNote Text: Radiology Service Progress NotePATIENT NAME: Lesa TorrezMRN: [id number] OF SERVICE: June 03, 2018TIME: 10:31 AMPATIENT IDENTITY VERIFICATION COMPLETED USING TWO (2) METHODS: Patientconfirmed name verbally and ID band matches..PATIENT GENDER DATA: Female. status: : NoBreastfeeding status: NO.PATIENT RELEVANT IMPLANT DATA REVIEWED: Not ApplicableRADIOLOGY DEPARTMENT: General X-ray: Exam(s) Completed: Lower ExtremityX-Ray(s): Foot, Right:PERIPHERAL IV DATA: Not applicableSIGNED BY: Rafi Hilton [facility] 10:31 AM Normal [facility] XR FOOT 3V AP/LAT/OBL RTon 0 06-03-2018 XR FOOT 3V AP/LAT/OBL RT * * *Final Report* * *DATE OF EXAM: Jun 03 2018 10:36AM LZX [id number] - XR FOOT 3V AP/LAT/OBL RT / REASON: Encounter for follow-up examination after completed treatment for conditions oth * * * * Physician Interpretation * * * * RIGHT FOOT X-RAYSHISTORY: right foot pain, follow up to surgery. Encounter for follow-up examination after completed treatment for conditions other than malignant neoplasmTECHNIQUE: 3 views of the right foot.COMPARISON: 05/15/2018RESULT:There are post surgical changes of 1st MTP joint arthrodesis with dorsal plate and screw fixation. Additionally resection arthroplasties of the 2nd through 4th PIP joints is noted with K wire fixation. 2nd metatarsal head osteotomy with screw fixation is also noted. Appearance and alignment is unchanged. Soft tissue swelling is slightly improved.IMPRESSION:Postsurgical changes right foot without complication.Card Reader: DAPHNE Transcribe Date/Time: Jun 03 2018 11:47ADictated by : Candice GONSALVES examination was interpreted and the report reviewed and electronically signed by: SHANNON TA MD on Jun 03 2018 11:48AM [id number] Normal [facility] PROGRESSon 06-02-2018 Protein mass conc HNO ID: [id number] thor: Elio Reidervice: (none)Author Type: PhysicianType: Progress NotesFiled: 06/03/2018 11:04 AMNote Text:Medical intake sheet from June 02, 2018 , was updated by patient,reviewed, and was made part of the patient's chart.JEFE Herndonubjective: Patient seen today for her third scheduled postop visit about8 weeks status post multiple procedures of the right forefoot withoutcomplaints.Objective:Patie nt seen today wearing a surgical shoe on the right foot. Uponremoval:There is minimal edema and erythema of the surgical sites. Pedal pulseand cap refill within normalDerm: The incisions are well healed. The pin tracks unremarkable at tipsof toes 23 and 4 right. Ortho musculoskeletal: Patient has rectusplantigrade hallux and lesser digits 2 through 5 with intact pin fixationwithout apparent signs of complication at this time.Radiographs: 3 views the right foot reveal satisfactory alignment andhealing with intact fixationDiagnosis:Satisfactory postoperative progress right foot status approximately 8weeks without apparent signs of complications at this time appropriate forpin removalTreatment today:Scheduled postop visit right footRadiographs 3 views the right foot to assess arthrodesis sites positionand healingCleansed the tips of toes 2 through 4 with alcohol allowed to dry removedpins to 3 and 4. Applied Betadine and Band-Aids. Should avoid showeringand pool for for a week.May progress back to regular shoes as tolerated and follow up whennecessary since should heal eventfullyAdvised to call if any questions or problems interimChbennie Chen DPM [facility] CNOVon 05-15-2018 CNOV Office Visit (LOORRM) Balwinder TORREZ ([id number]) 1960 FDate Time Provider Department05/15/18 2:30 PM ELIO CHEN LOORRM During your visit today, we recorded the following information about you:Elio Chen DPM 05/15/2018 2:41 PM SignedMedical intake sheet from May 12, 2018 , was updated by patient, reviewed, andwas made part of the patient's chart.JEFE Herndonubjective: Patient seen today for her second scheduled postop visit almost 6weeks status post multiple procedures of the right forefoot without complaints.Objective:Patient seen today wearing a surgical shoe on the right foot with intactdressings. Upon removal:There is only mild edema and minimal erythema the surgical sites. Pedal pulseand cap refill within normalDerm: The incisions are well coapted with intact sutures and and Steri-Stripswith no appreciable signs of active drainage bleeding purulence or cellulitis.Ortho musculoskeletal: Patient has rectus plantigrade hallux and lesser digits2 through 5 with intact pin fixation without apparent signs of complication atthis time.Radiographs: 3 views the right foot reveal satisfactory alignment and healingwith intact fixationDiagnosis:Satisfactory postoperative progress right foot status almost 6 weeks withoutapparent signs of complications at this time appropriate to continue as isTreatment today:Scheduled postop visit right footRemoved all dressings advised patient everything is healing nicely without anyapparent signs of complicationsContinue surgical shoe and keeping clean and dry.We will see her back in 2 or 3 weeks reevaluation and re-x-ray and probable pinremoval.Advised to call if any questions or problems interimChristopher BLAINE WrightMReferring Provider: ELIO CHEN [[id number]]Allergies As of Date: 05/15/2018 Noted Allergy ReactionBACTRIM (SULFAMETHOXAZOLE-TRIMETH* 015 4 - HivesDate Reviewed: 05/15/2018Reviewed by: Ketty Reynolds Tech - Fully AssessedReason for Visit: Post Op [174]Primary Visit Diagnosis:Follow-up examination following surgery [Z09] Other Visit Diagnoses:Hallux valgus with bunions of right foot [M20.11, M21.611] Hammer toe of right foot [M20.41] Contracted, joint, multiple sites [M24.50] Metatarsal deformity, right [M21.961]Order(s):XR FOOT GENERAL 3V AP/LAT/OBL RT [[id number]] Order #: [id number] FUTUREPrescriptions as of 05/15/2018 Sig: PROMETHAZINE 25 MG TABLET Take 1 tablet by mouth every * KETOROLAC 10 MG TABLET Take 1 tablet by mouth every * DOXYCYCLINE MONOHYDRATE 100 M* Take 1 capsule by mouth twice* TIZANIDINE 4 MG TABLET Take 4 mg by mouth once daily. BISOPROLOL 10 MG-HYDROCHLOROT* CALCIUM 500 MG TABLET Take 1 tablet by mouth twice * MULTIVITAMIN TABLET Take 1 tablet by mouth once d* LORATADINE 10 MG TABLET Take 10 mg by mouth once guzman* POLYETHYLENE GLYCOL 3350 17 G* Take 17 g by mouth once daily. RIZATRIPTAN 10 MG TABLET Take 10 mg by mouth as needed* [id number]-[id number]-[id number]* Take 1 tablet by mouth every * NAPROXEN SODIUM 220 MG TABLET Take 220 mg by mouth as neede*Problem List As Of Date 05/15/2018 Noted Resolved Hallux abductovalgus with bunions [M20.10, M21.*INVALID FOR* Hammertoe [M20.40] INVALID FOR* Hav (hallux abducto valgus), right [M20.11] INVALID FOR* More... Deformity of metatarsal, right [M21.961] INVALID FOR* More... Contracted, joint [M24.50] INVALID FOR* More... Hammer toe of right foot [M20.41] INVALID FOR* More... HTN (hypertension) [I10] Migraines [G43.909] Status:Closed by ELIO CHEN DPM on 05/15/18 Normal [facility] PROGRESSon 05-15-2018 Protein mass conc HNO ID: [id number] thor: Ivelisse (Rt) Weeks, TechService: (none)Author Type: TechnicianType: Progress NotesFiled: 05/15/2018 2:08 PMNote Text: Radiology Service Progress NotePATIENT NAME: Lesa TorrezMRN: [id number] OF SERVICE: May 15, 2018TIME: 2:08 PMPATIENT IDENTITY VERIFICATION COMPLETED USING TWO (2) METHODS: Patientconfirmed name verbally and Date of .PATIENT GENDER DATA: Female. status: : NoBreastfeeding status: NO.PATIENT RELEVANT IMPLANT DATA REVIEWED: Not ApplicableRADIOLOGY DEPARTMENT: General X-ray: Exam(s) Completed: Lower ExtremityX-Ray(s): Foot, Right and Wt. Bearing:PERIPHERAL IV DATA: Not applicableSIGNED BY: Ivelisse JyoRTJuly 2017 2:08 PM Normal [facility] XR FOOT 3V AP/LAT/OBL RTon 0 05-15-2018 XR FOOT 3V AP/LAT/OBL RT * * *Final Report* * *DATE OF EXAM: May 15 2018 2:09PM LZX 5337 - XR FOOT 3V AP/LAT/OBL RT / REASON: Encounter for follow-up examination after completed treatment for conditions oth * * * * Physician Interpretation * * * * EXAMINATION: XR FOOT 3V AP/LAT/OBL RTHISTORY: Post op 04-06-18 Encounter for follow-up examination after completed treatment for conditions other than malignant neoplasm .TECHNIQUE: XR FOOT 3V AP/LAT/OBL RT Laterality: RIGHT Number of different views (projections): 3 M: XB_1COMPARISON: 05/07/2018RESULT:Again seen is postsurgical changes of first MTP fusion and second/fourth PIP resection arthroplasties with osteotomy of the second metatarsal head. Surgical hardware remain intact. Mild decrease in soft tissue swelling about the forefoot.No other significant abnormality.IMPRESSION:Stable post operative examination.Card Reader: PSCB Transcribe Date/Time: May 15 2018 2:38PDictated by : ROD BRIONES MDThis examination was interpreted and the report reviewed and electronically signed by: ROD BRIONES MD on May 15 2018 2:50PM [id number] Normal [facility] PROGRESSon 05-12-2018 Protein mass conc HNO ID: [id number] thor: Elio Alanice: (none)Author Type: PhysicianType: Progress NotesFiled: 05/15/2018 2:41 PMNote Text:Medical intake sheet from May 12, 2018 , was updated by patient,reviewed, and was made part of the patient's chart.JEFE Herndonubjective: Patient seen today for her second scheduled postop visitalmost 6 weeks status post multiple procedures of the right forefootwithout complaints.Objective:Patient seen today wearing a surgical shoe on the right foot with intactdressings. Upon removal:There is only mild edema and minimal erythema the surgical sites. Pedalpulse and cap refill within normalDerm: The incisions are well coapted with intact sutures and andSteri-Strips with no appreciable signs of active drainage bleedingpurulence or cellulitis.Ortho musculoskeletal: Patient has rectus plantigrade hallux and lesserdigits 2 through 5 with intact pin fixation without apparent signs ofcomplication at this time.Radiographs: 3 views the right foot reveal satisfactory alignment andhealing with intact fixationDiagnosis:Satisfactory postoperative progress right foot status almost 6 weekswithout apparent signs of complications at this time appropriate tocontinue as isTreatment today:Scheduled postop visit right footRemoved all dressings advised patient everything is healing nicely withoutany apparent signs of complicationsContinue surgical shoe and keeping clean and dry.We will see her back in 2 or 3 weeks reevaluation and re-x-ray andprobable pin removal.Advised to call if any questions or problems interimChrisdillan Chen DPM Normal [facility] CNOVon 05-07-2018 CNOV Office Visit (LOORRM) Balwinder TORREZ ([id number]) 1960 [facility] Time Provider Department05/07/18 10:45 AM ELIO CHEN During your visit today, we recorded the following information about you:Elio Chen DPM 05/07/2018 11:21 AM SignedSubjective: Patient seen today for her first scheduled postop visit about 4weeks status post multiple procedures of the right forefoot without complaints.Objective:Patient seen today wearing a surgical shoe on the right foot with intactdressings. Upon removal:There is only mild edema and minimal erythema the surgical sites. Pedal pulseand cap refill within normalDerm: The incisions are well coapted with intact sutures and and Steri-Stripswith no appreciable signs of active drainage bleeding purulence or cellulitis.Ortho musculoskeletal: Patient has rectus plantigrade hallux and lesser digits2 through 5 with intact pin fixation without apparent signs of complication atthis time.Radiographs: 3 views the right foot reveal satisfactory alignment and healingwith intact fixationDiagnosis:Satisfactory postoperative progress right foot status 4 weeks without apparentsigns of complications at this time appropriate for suture removalTreatment today:Scheduled postop visit right footRemoved all dressings advised patient everything is healing nicely without anyapparent signs of complicationsRemoved all suturesContinue surgical shoe and keeping clean and dry.We will see her back in 2 or 3 weeks reevaluation and re-x-ray and probable pinremoval.Advised to call if any questions or problems interimChrisBLAINE MolinaMReferring Provider: SELF [[id number]]Allergies As of Date: 05/07/2018 Noted Allergy ReactionBACTRIM (SULFAMETHOXAZOLE-TRIMETH*04/28/ 015 4 - HivesDate Reviewed: 05/07/2018Reviewed by: Ketty Robertson Clinical Tech - Fully AssessedReason for Visit: Post Op [174]Primary Visit Diagnosis:Hallux valgus with bunions of right foot [M20.11, M21.611] Other Visit Diagnoses:Hammer toe of right foot [M20.41] Contracted, joint, multiple sites [M24.50] Metatarsal deformity, right [M21.961]Prescriptions as of 05/07/2018 Sig: PROMETHAZINE 25 MG TABLET Take 1 tablet by mouth every * KETOROLAC 10 MG TABLET Take 1 tablet by mouth every * DOXYCYCLINE MONOHYDRATE 100 M* Take 1 capsule by mouth twice* TIZANIDINE 4 MG TABLET Take 4 mg by mouth once daily. BISOPROLOL 10 MG-HYDROCHLOROT* CALCIUM 500 MG TABLET Take 1 tablet by mouth twice * MULTIVITAMIN TABLET Take 1 tablet by mouth once d* LORATADINE 10 MG TABLET Take 10 mg by mouth once guzman* POLYETHYLENE GLYCOL 3350 17 G* Take 17 g by mouth once daily. RIZATRIPTAN 10 MG TABLET Take 10 mg by mouth as needed* CMDPYAV-[id number]-GKFMCCL* Take 1 tablet by mouth every * NAPROXEN SODIUM 220 MG TABLET Take 220 mg by mouth as neede*Problem List As Of Date 05/07/2018 Noted Resolved Hallux abductovalgus with bunions [M20.10, M21.*INVALID FOR* Hammertoe [M20.40] INVALID FOR* Hav (hallux abducto valgus), right [M20.11] INVALID FOR* More... Deformity of metatarsal, right [M21.961] INVALID FOR* More... Contracted, joint [M24.50] INVALID FOR* More... Hammer toe of right foot [M20.41] INVALID FOR* More... HTN (hypertension) [I10] Migraines [G43.909] Status:Closed by [employer] on 05/07/18 Normal [facility] PROGRESSon 05-07-2018 Protein mass conc HNO ID: [id number] thor: Elio Lazaro: (none)Author Type: PhysicianType: Progress NotesFiled: 05/07/2018 11:21 AMNote Text:Subjective: Patient seen today for her first scheduled postop visit about4 weeks status post multiple procedures of the right forefoot withoutcomplaints.Objective:Patie nt seen today wearing a surgical shoe on the right foot with intactdressings. Upon removal:There is only mild edema and minimal erythema the surgical sites. Pedalpulse and cap refill within normalDerm: The incisions are well coapted with intact sutures and andSteri-Strips with no appreciable signs of active drainage bleedingpurulence or cellulitis.Ortho musculoskeletal: Patient has rectus plantigrade hallux and lesserdigits 2 through 5 with intact pin fixation without apparent signs ofcomplication at this time.Radiographs: 3 views the right foot reveal satisfactory alignment andhealing with intact fixationDiagnosis:Satisfactory postoperative progress right foot status 4 weeks withoutapparent signs of complications at this time appropriate for sutureremovalTreatment today:Scheduled postop visit right footRemoved all dressings advised patient everything is healing nicely withoutany apparent signs of complicationsRemoved all suturesContinue surgical shoe and keeping clean and dry.We will see her back in 2 or 3 weeks reevaluation and re-x-ray andprobable pin removal.Advised to call if any questions or problems interimChristopher Bryan Chen DPM Normal [facility] Protein mass conc HNO ID: [id number] thor: Jamia Tinajero (Rt) JtSer: (none)Author Type: TechnicianType: Progress NotesFiled: 05/07/2018 10:37 AMNote Text: Radiology Service Progress NotePATIENT NAME: Lesa TorrezMRN: [id number] OF SERVICE: May 07, 2018TIME: 10:36 AMPATIENT IDENTITY VERIFICATION COMPLETED USING TWO (2) METHODS: Patientconfirmed name verbally and Date of .PATIENT GENDER DATA: Female. status: : NoBreastfeeding status: NO.PATIENT RELEVANT IMPLANT DATA REVIEWED: Not ApplicableRADIOLOGY DEPARTMENT: General X-ray: Exam(s) Completed: Lower ExtremityX-Ray(s): Foot, Right:PERIPHERAL IV DATA: Not applicableSIGNED BY: Jamia Waters, RTJuly 2017 10:36 AM [facility] XR FOOT 3V AP/LAT/OBL RTon 0 05-07-2018 XR FOOT 3V AP/LAT/OBL RT * * *Final Report* * *DATE OF EXAM: May 07 2018 10:38AM LZX 5337 - XR FOOT 3V AP/LAT/OBL RT / REASON: multiple diagnoses * * * * Physician Interpretation * * * * EXAMINATION: XR FOOT 3V AP/LAT/OBL RTHISTORY: post op Hallux valgus (acquired), right foot Unspecified acquired deformity of right lower leg Other hammer toe(s) (acquired), right foot Other specified postprocedural states.TECHNIQUE: XR FOOT 3V AP/LAT/OBL RT Laterality: RIGHT Number of different views (projections): 3 M: XB_1COMPARISON: 01/06/2018RESULT:Hallux valgus with bunion, second through fourth hammer and claw toes toes have been surgically corrected with first metatarsophalangeal arthrodesis demonstrating intact dorsal plate and screws and 2 partially threaded transarticular screws. The second through fourth toes have been pinned with proximal interphalangeal resection arthroplasties and an intact threaded screw in the second surgical neck. Hardware is intactNo other significant change.IMPRESSION:Normal postoperative appearances of the forefoot.Card Reader: WILLIAM[facility] ARH HOSPITALAkash Transcribe Date/Time: May 07 2018 10:41ADictated by : CHARITO KAN MDThis examination was interpreted and the report reviewed and electronically signed by: CHARITO KAN MD on May 07 2018 10:44AM [id number] Normal [facility] CNOVon 04-15-2018 CNOV Office Visit (LOORRM) Balwinder TORREZ ([id number]) 1960 FDate Time Provider Department04/15/18 8:45 AM ELIO CHEN During your visit today, we recorded the following information about you:Elio Chen DPM 04/15/2018 8:55 AM SignedSubjective: Patient seen today for her first scheduled postop visit 9 daysstatus post multiple procedures of the right forefoot without complaints. Shestates her pain is managed well with the Toradol and Percocet and it isprogressively decreasing.Objective:Patient seen today wearing a surgical shoe and the right foot with intactdressings. Upon removal:There is only mild edema and minimal erythema the surgical sites. Pedal pulseand cap refill within normalDerm: The incisions are well coapted with intact sutures and and Steri-Stripswith no appreciable signs of active drainage bleeding purulence or cellulitis.Ortho musculoskeletal: Patient has rectus plantigrade hallux and lesser digits2 through 5 with intact pin fixation without apparent signs of complication atthis time.Diagnosis:Satisfactory postoperative progress right foot status post 9 days withoutapparent signs of complications at this timeTreatment today:First postop visit right footRemoved our dressings advised patient everything is healing nicely without anyapparent signs of complicationsPain incision Betadine reapplied a bulky dry sterile dressing of sterile 4 x4's Kerlix 2 inch Coban and stockinette and surgical shoeContinue keep clean and dry I will see her back in approximately 10-12 days forprobable suture removal and first set of postoperative radiographs.Advised to call if any questions or problems interimHandicap parking placard prescription dispensed upon requestGHAZAL Herndonefethel Provider: SELF [[id number]]Allergies As of Date: 04/15/2018 Noted Allergy ReactionBACTRIM (SULFAMETHOXAZOLE-TRIMETH* 015 4 - HivesDate Reviewed: 04/15/2018Reviewed by: Ketty Robertson Clinical Tech - Fully AssessedReason for Visit: Post Op [174]Primary Visit Diagnosis:Hallux valgus with bunions of right foot [M20.11, M21.611] Other Visit Diagnoses:Hammer toe of right foot [M20.41] Contracted, joint, multiple sites [M24.50]Order(s):PARKING FOR HANDICAPPED [[id number]] Order #: [id number] as of 04/15/2018 Sig: PROMETHAZINE 25 MG TABLET Take 1 tablet by mouth every * KETOROLAC 10 MG TABLET Take 1 tablet by mouth every * DOXYCYCLINE MONOHYDRATE 100 M* Take 1 capsule by mouth twice* TIZANIDINE 4 MG TABLET Take 4 mg by mouth once daily. BISOPROLOL 10 MG-HYDROCHLOROT* CALCIUM 500 MG TABLET Take 1 tablet by mouth twice * MULTIVITAMIN TABLET Take 1 tablet by mouth once d* LORATADINE 10 MG TABLET Take 10 mg by mouth once guzman* POLYETHYLENE GLYCOL 3350 17 G* Take 17 g by mouth once daily. RIZATRIPTAN 10 MG TABLET Take 10 mg by mouth as needed* EHTBLIJ-WQBUZUWHXVKPP-GGSBQEA* Take 1 tablet by mouth every * NAPROXEN SODIUM 220 MG TABLET Take 220 mg by mouth as neede*Problem List As Of Date 04/15/2018 Noted Resolved Hallux abductovalgus with bunions [M20.10, M21.*INVALID FOR* Hammertoe [M20.40] INVALID FOR* Hav (hallux abducto valgus), right [M20.11] INVALID FOR* More... Deformity of metatarsal, right [M21.961] INVALID FOR* More... Contracted, joint [M24.50] INVALID FOR* More... Hammer toe of right foot [M20.41] INVALID FOR* More... HTN (hypertension) [I10] Migraines [G43.909] Status:Closed by ELIO CHEN DPM on 04/15/18 Normal [facility] PROGRESSon 04-15-2018 Protein mass conc HNO ID: [id number] thor: Elio Reidervice: (none)Author Type: PhysicianType: Progress NotesFiled: 04/15/2018 8:55 AMNote Text:Subjective: Patient seen today for her first scheduled postop visit 9 daysstatus post multiple procedures of the right forefoot without complaints.She states her pain is managed well with the Toradol and Percocet and itis progressively decreasing.Objective:Patient seen today wearing a surgical shoe and the right foot with intactdressings. Upon removal:There is only mild edema and minimal erythema the surgical sites. Pedalpulse and cap refill within normalDerm: The incisions are well coapted with intact sutures and andSteri-Strips with no appreciable signs of active drainage bleedingpurulence or cellulitis.Ortho musculoskeletal: Patient has rectus plantigrade hallux and lesserdigits 2 through 5 with intact pin fixation without apparent signs ofcomplication at this time.Diagnosis:Satisfactory postoperative progress right foot status post 9 days withoutapparent signs of complications at this timeTreatment today:First postop visit right footRemoved our dressings advised patient everything is healing nicely withoutany apparent signs of complicationsPain incision Betadine reapplied a bulky dry sterile dressing of sterile 4x 4's Kerlix 2 inch Coban and stockinette and surgical shoeContinue keep clean and dry I will see her back in approximately 10-12days for probable suture removal and first set of postoperativeradiographs.Advised to call if any questions or problems interimHandicap parking placard prescription dispensed upon requestChbennie Chen DPM Normal [facility] ANES Ulices 04-06-2018 ANES POST HNO ID: [id number] thor: Vinnie Santizoice: AnesthesiologyAuthor Type: AnesthesiologistType: Anesthesia PostOpFiled: 04/06/2018 1:19 PMNote Text:POST ANESTHESIA EVALUATION NOTESERVICE DATE: 04/06/2018SERVICE TIME: 11:50 AMDOB: 1960Vitals: 04/06/1811Temp: 36.2 ?C (97.2 ?F) 36.2 ?C (97.2 ?F) 120 135 145BP: 174/80 172/91 174/96 179/81 826186 120 [id number] 384040Dkaqt: 67 67 63 65 104 959506 135 [id number]: 16 16 16 16 488362 052807 650932 887885SmW7: 97% 100% 99% 98%Validated Vital Signs: YesPOST ANES STATUS: No apparent anesthetic complications. The patient isappropriately hydrated with stable respiratory and cardiovascular status.Patient has safe and adequate airway control. The patient has appropriatepain relief and no significant post operative nausea or vomiting. Thepatient has achieved baseline mental status.Further assessment by Anesthesia Service: NoneOther Remarks:SIGNATURE: Vinnie Cornejo MD PATIENT NAME: Lesa JacksonmanDATE: April 06, 2018 : 1:19 PM PAGER/CONTACT #: [facility] ANES PREOPon 04-06-2018 ANES PREOP HNO ID: [id number] thor: Vinnie Santizoice: AnesthesiologyAuthor Type: AnesthesiologistType: Anesthesia PreOpFiled: 04/06/2018 7:16 AMNote Text: ANESTHESIOLOGY DAY OF SURGERY NOTESERVICE DATE: 04/06/2018SERVICE TIME: 7:15 AMDOB: 1960Procedure(s) (LRB):ARTHRODESIS GREAT TOE METATARSOPHALANGEAL JOINT (Right)OSTEOTOMY METATARSAL OTHER THAN FIRST METATARSAL EACH (Right)CAPSULOTOMY MTP (Right)CORRECTION HAMMER TOE ONE TOE UNILATERAL (Right)Surgeon(s):Elio ChenEstimated body mass index is 34.18 kg/m? as calculated from the following: Height as of 03/26/18: 152.4 cm (5'). Weight as of 03/26/18: 79.4 kg (175 lb).Most recent hematocrit and potassium results:No results found for this basename: HCT,HEMATOCRIT,K,POTASSIUMANES DOS/PREOP NOTE:Vitals:@MVITALS@ACTIVE PROBLEM LISTHallux Abductovalgus With BunionsHammertoeHav (Hallux Abducto Valgus), RightDeformity of Metatarsal, RightContracted, JointHammer Toe of Right FootHtn (Hypertension)MigrainesPAST MEDICAL HISTORYDiagnosis Date- HTN (hypertension)- MigrainesPAST SURGICAL HISTORYProcedure Laterality Date- LAPAROSCOPIC CHOLEYCYSTECTOMY Cholecystectomy, lap- PAST SURGICAL HISTORY OF 2009 right thumb arthroplasty- PAST SURGICAL HISTORY OF Left bunion- PAST SURGICAL HISTORY OF Left neuroma removalFAMILY HISTORYProblem Relation Age of Onset- sleep apnea [OTHER] FatherSocial History:Social HistorySubstance Use Topics- Smoking status: Never Smoker- Smokeless tobacco: Never Used- Alcohol use Yes Comment: Mayuri current facility-administered medications on file prior to encounter.Current Outpatient Prescriptions on File Prior to Encounter:bisoprolol-hydrochlorot hiazide (ZIAC) 10-6.25 mg per tabletcalcium, elemental, tab Take 1 tablet by mouth twice daily.multivitamin (DAILY MULTIPLE) tablet Take 1 tablet by mouth once daily.loratadine (CLARITIN) 10 mg tablet Take 10 mg by mouth once daily.polyethylene glycol 3350 (MIRALAX) 17 gram packet Take 17 g by mouth oncedaily.rizatriptan (MAXALT) 10 mg tablet Take 10 mg by mouth as needed. Mayrepeat in 2 hours if fssocrNcipqre-Umdxioswennxx-Dwlgy ine (EXCEDRIN MIGRAINE) 250-250-65 mg pertablet Take 1 tablet by mouth every 6 hours as needed.naproxen sodium (ALEVE) 220 mg tablet Take 220 mg by mouth as needed.Current Facility-Administered Medications:lidocaine 10 mg/mL (1 %) 1-2 mg injection (XYLOCAINE) 0.1-0.2 mLINTRADERMAL PRN Laron (Res) Damasosonlactated ringers infusion 5-30 mL/hr INTRAVENOUS CONTINUOUS Laron (Res)DawsonceFAZolin 2 g in dextrose (iso-osmotic) 50 mL (ANCEF,KEFZOL) 2 gINTRAVENOUS Pre-Op Once Laron (Res) HemaAllergies:ALLERGIESAllergen Reactions- Bactrim [Sulfametho* HivesDOS EXAM: Adequate NPO Status: YesAnesthetic Risks, Benefits, Alternatives, Personnel and Consent Discussed:YesPatient agrees to proceed: YesPrevious Anesthesia: No history of adverse eventAirway Assessment: MP 2; Neck ROM: Full ROM without neurologic symptoms;Airway Evaluation: No significant abnormalitiesSymptoms of Sleep Apnea: Snoring, Hypertension and Age over 50 (57 yearold)Dentition: Teeth intactAdditional Physical Exam:Lungs: Patient health status unchanged since recent history and physical.See history and physical for exam findings.Cardiac: Patient health status unchanged since recent history andphysical. See history and physical for exam findings.Additional Pertinent Findings: N/ABlood Products: Not anticipated for this procedureAnesthetic Plan: MAC with general as back upAnesthetic Monitoring: Standard ASA MonitorsPain Management Plan: Parenteral or OralASA Class: 3Other Medical Problems: NoneChronic Beta Abhijit medication administered within 24 hours: Kristi have interviewed and examined the patient. I have reviewed the medicalrecord and/or the pre-anesthesia evaluation, pertinent labs, and testresults.Significant changes in the patient's condition since the History andPhysical, not otherwise documented in primary service progress notes: NoThis contains updated information obtained within 48 hours ofSurgery/Procedure.SIGNATURE: Vinnie Cornejo MD PATIENT NAME: Lesa Mcneal ReidermanDATE: April 06, 2018 : 7:15 AM CSN: [id number] Normal [facility] BRIEF OP NOTon 04-06-2018 BRIEF OP NOT HNO ID: [id number] thor: Laorn (Pato) HemaService: PodiatryAuthor Type: ResidentType: Brief Op NoteFiled: 04/06/2018 11:09 AMNote Text:BRIEF OP NOTELOG ID: [id number]/Procedure Date: 04/06/2018Incision/Procedure Start Time: 7:50 AMIncision Close/Procedure End Time: 10:54 AMSurgeon(s)/Proceduralist(s) and Animation Director(s):Surgeon(s) and Role: * Elio Garrido DPM [id number](s): 1st MPJ fusion, PIPJ fusion 2,3,4, MPJ capsule release andEHL lengthening 2,3,4,5Anesthesia: Monitored Anesthesia CareFindings: consistent with diganosisEstimated Blood Loss: 25 mlsSpecimens: NoneComplications: NonePre-Op/Pre-Procedure Diagnosis: Hav (hallux abducto valgus), right[M20.11]Deformity of metatarsal, right [M21.961]Contracted, joint[M24.50]Hammer toe of right foot [M20.41]Post-Op/Post-Procedure Diagnosis: Hav (hallux abducto valgus), right[M20.11]Deformity of metatarsal, right [M21.961]Contracted, joint[M24.50]Hammer toe of right foot [M20.41]SIGNATURE: Laron Garrido DPM PATIENT NAME: Lesa JacksonmanDATE: April 06, 2018 : 11:07 AM PAGER/CONTACT #: [facility] NURSING PROGon 04-06-2018 Protein mass conc HNO ID: [id number] Author: Zoila Zavala (Rn) OSMAR Hamilton Service: (none) Author Type: Registered Nurse Type: Nursing Progress Note Filed: 04/06/2018 12:02 PM Note Text: PT'S FRIEND HERE. PT GETTING DRESSED. Normal [facility] Protein mass conc HNO ID: [id number] thor: Zoila Zavala (Rn) JERRI Hamiltonervice: (none)Author Type: Registered NurseType: Nursing Progress NoteFiled: 04/06/2018 11:50 AMNote Text:TOOK OVER CARE OF PATIENT. POST OP SHOE FITTED AND APPLIED. PT AWAKE.DENIES ANY COMPLAINTS. WAITING FOR PATIENT'S FRIEND TO ARRIVE TO TAKE HERHOME. Normal [facility] Protein mass conc HNO ID: [id number] Author: Jailene Kendall) OSMAR Perez Service: (none) Author Type: Registered Nurse Type: Nursing Progress Note Filed: 04/06/2018 11:40 AM Note Text: Received report from elena cifuentes at 1125 Normal [facility] Protein mass conc HNO ID: [id number] thor: Elena Tinajero (Osmar) Lissy, RNService: (none)Author Type: Registered NurseType: Nursing Progress NoteFiled: 04/06/2018 11:23 AMNote Text: Nursing Progress NotePatient Name: Lesa Jacksonredwood cityMRN: [id number] Location: [id number]/Q548-Ypbzia Daily Note:Handoff report given to Jailene Perez RN. Pt. Restingcomfortably. Painfree. Dr. Chen at bedside. vss. DSD intact toright foot, elevated on pillow with ice pack.This note was completed by: Elena Cifuentes RN [facility] OPERATIVE NOon 04-06-2018 OPERATIVE NO HNO ID: [id number] thor: Elio Reidervice: PodiatryAuthor Type: PhysicianType: Operative ReportFiled: 06/01/2018 3:13 PMNote Text:[facility] [address] [place]OPERATIVE REPORTNAME: LESA TORREZ [facility] #: [id number]: 04/06/2018 AGE: 57SURGEON 1: RADHA Herndon 2:GENERAL AGENT 1: Carl Garrido D.P.M.GENERAL AGENT 2:OPERATION: 1. First MPJ arthrodesis, right foot (CPT 52405). 2. Weilshortening osteotomy, second metatarsal, right foot (CPT 68856). 3.Capsulotomy second, third, and fourth MPJ, right foot (CPT 10075). 4.Hammertoe repair with pinning digits 2, 3, and 4, right foot (CPT 37699).ANESTHESIA: MAC with a local field block utilizing a total of 20 mL of 2%lidocaine plain.PREOPERATIVE DIAGNOSIS: 1. Significant hallux abductovalgus/buniondeformity, right foot.2. Structurally long second and third metatarsals, right foot. 3.Significant hammertoe deformities, digits 2, 3, and 4 of the right foot.4. Contracted second, third, and fourth metatarsophalangeal joints, rightfoot.POSTOPERATIVE DIAGNOSIS: 1. Significant hallux abductovalgus/buniondeformity, right foot.2. Structurally long second and third metatarsals, right foot. 3.Significant hammertoe deformities, digits 2, 3, and 4 of the right foot.4. Contracted second, third, and fourth metatarsophalangeal joints, rightfoot.OPERATIVE INDICATIONS: This 57-year-old female was last seen [facility] on January 06, 2018, for a final surgical consultation regardingher right foot. The patient stated she was happy with the left foot andwanted essentially the same thing done on the right foot and declinedfurther conservative measures.OPERATIVE FINDINGS: Consistent with preoperative clinical andradiographic examinations.OPERATIVE PROCEDURE: The patient was brought to the preoperative holdingarea, where an IV line was started by the Nursing staff. 2 g of Ancefwere infused IV piggyback for prophylaxis. The patient was transportedto the operating room and placed on the operating table in a supineposition. After intravenous sedation was achieved, local field blockswere performed at the base of first, second, third, and fourth metatarsalright foot utilizing approximately 20 mL of 2% lidocaine plain. Awell-padded pneumatic ankle tourniquet cuff was applied just proximal tothe right ankle malleoli, but not yet inflated. The patient's right footand lower leg were then prepped with Hibiclens and draped in usualsterile manner. The patient's right foot and lower leg were elevated andexsanguinated and the right pneumatic ankle tourniquet was inflated to250 mmHg for hemostasis.An approximate 6 cm curvilinear incision was made over the dorsal medialaspect of the right first MPJ and carried down to the subcutaneous tissuelevel. Dissection then proceeded through the subcutaneous tissues downto level of the first MPJ capsule and periosteum with care to preserve orretract neurovascular bundles. All superficial venous structuresencountered were clamped and electrocauterized to preserve hemostasis.The first MPJ capsule and periosteum were then incised and reflected. Wethen removed the articular cartilage and subchondral bone from the firstmetatarsal head while maintaining the round shape. We then used a 5-mmround bur to remove the articular cartilage and subchondral bone from thebase of the proximal phalanx and the hallux while maintaining the cupshape. After copious irrigation, the base of the proximal phalanx andhallux were fenestrated with a 0.045 K-wire as well as the head of thefirst metatarsal to help in aid in arthrodesis. Two crossing SBi screwK-wires were then placed across the joint under fluoroscopic guidance.They were in nice overall position. We then placed in two 3.0-mmcannulated SBi screws with the hallux parallel to the second toe with nofrontal plane rotation and approximately 10 to 15 degrees off the ground. The screws held nicely. This was followed by a VariAx 6- hole plate andfour 2.7-mm locking screws. After copious irrigation, we placed some ofthe cancellous bone in the medial aspect of the first MPJ to gas meter installer helper inarthrodesis. The first MPJ capsule was reapproximated utilizing 3-0Polysorb continuous running fashion. The subcutaneous tissue wasreapproximated utilizing 4- 0 Polysorb in continuous running fashion.The skin was then reapproximated utilizing 4-0 nylon in interruptedhorizontal mattress fashion.We then approached the right second MPJ and second toe where incision wasmade from the dorsal midline on the second toe PIPJ to just proximal tothe second MPJ and carried down to the subcutaneous tissue level.Dissection then proceeded through subcutaneous tissues down to the levelof the EDL tendon complex with care to preserve or retract neurovascularbundles. All superficial venous structures encountered were clamped andelectrocauterized to preserve hemostasis. We then transected the extensorhood apparatus on both sides of the extensor tendon to the level of theMPJ. We then performed a dorsal and medial second MPJ capsulotomy. ThePIPJ was disarticulated and the head of the proximal phalanx wasdelivered to the operative site. We then used a McGlamry elevator tofree up the plantar plate on the second MPJ. The toe was in a much moreplantigrade rectus. We then performed a Amadou osteotomy of the secondmetatarsal with a power sagittal saw with a approximately, 30-degreeangulation from dorsal to plantar about a third of the way down thesecond metatarsal head. We then fixated the osteotomy after shorteneddown about a 0.5 cm more with a 2.0-mm Asnis screw. It held nicely. Kelly resected in the articular cartilage of the head of the proximalphalanx of the second toe as well as the base of middle phalanx of thesecond toe in a transverse manner with a power sagittal saw. Afterirrigation, a 0.062 K-wire was then placed in the medullary canal of themiddle phalanx of the toe was then retrograded to the medullary canal ofthe proximal phalanx to the subchondral base of the proximal phalanx. Kelly decided to pin across the MPJ. This placed up the shaft in thesecond metatarsal with the toe in a plantar flexed position. Everythingheld nicely. After copious irrigation, the extensor tendon was thenreapproximated utilizing 4-0 Polysorb in an xnrq-vxv-dcdf type fashion.The skin was then reapproximated utilizing 4-0 nylon in an interruptedhorizontal mattress fashion. We then approached the third and fourthtoes where the same exact procedure was performed on the third and fourthtoes as on the second toe without exception or deletion with the samesatisfactory result. With the same fixation and closure, except on thefourth toe, we used a 0.054 K-wire instead of a 0.062 inch K- wire.We then approached the fifth MPJ since there was significant contracturedorsally. We felt it would look unusual to have all the other toes nicelyaligned and the fifth toe sticking up because of the contracture of anextensor tendon, we performed about a 2.5 cm incision over the dorsalaspect of the fifth MPJ. A Z- lengthening was performed of the extensortendon. A dorsal capsulotomy was performed over the fifth MPJ, and thetoe now maintained in a much more plantigrade position. After copiousirrigation, the extensor tendon was then reapproximated utilizing 4-0Polysorb in an vymn-tru-psij fashion. The skin was then reapproximatedutilizing 4-0 nylon in interrupted horizontal mattress fashion. On thethird and fourth toes, a dorsal and lateral capsulotomy were performed atthe MPJs. Approximately 20 mL of 0.5% Marcaine plain were injectedwithin and proximal to the operative sites for prolonged postoperativeanesthesia. A sterile compressive dressing was then applied to thepatient's right foot consisting of Betadine-soaked Adaptic, 4 x 4s, andKerlix followed by a 4-inch Feilx wrap. The right pneumatic ankletourniquet was then fully deflated and immediate cap refill was noteddigit 1 through 5, right foot.The patient tolerated the procedure and anesthesia well and wastransported from OR to recovery room with vital signs stable andvascular status intact to all digits, right foot. The patient wasgiven written as well as verbal postop instructions upon dischargeincluding prescription for Percocet, Toradol, Phenergan, anddoxycycline for postoperative pain, nausea, anti-inflammatory, andantibiotic effects.The patient discharged to home in apparent satisfactory condition without complaints, ambulating partial weightbearing right foot,wearing a surgical shoe, and using crutches in care of her mother. She is scheduled for first postop evaluation in office on April.The procedure was performed in conjunction with the resident, who waspresent in the operating room today under my direct supervision [id number].START TIME: 07:50.END TIME: 10:50.HEMOSTASIS: Right pneumatic ankle tourniquet at 250 mmHg.MATERIALS: Two SBi 3.0-mm cannulated screws, one VariAx plate and four2.7-mm locking screws, two 0.062 K-wires and one 0.054 K-wire, 3-0 and4-0 Polysorb, and 4- 0 nylon suture.PROPHYLAXIS: 2 g of Ancef IV piggyback preop.ESTIMATED BLOOD LOSS: Minimal.DRAINS: None.SPECIMENS: None.COMPLICATIONS: None.CONDITION: Satisfactory.Elio Chen [facility]:[id number] #: [id number]: 04/06/2018 10:29:16 cc: Normal [facility] PROGRESSon 04-06-2018 Protein mass conc HNO ID: [id number] thor: Laron GarridoService: PodiatryAuthor Type: ResidentType: Progress NotesFiled: 04/06/2018 7:10 AMNote Text:ORTHOPAEDIC PRE-OPERATIVE NOTESERVICE DATE: 04/06/2018SERVICE TIME: 7:09 AMDIAGNOSIS: right hav/hallux rigidus, hammertoes 2,3,4PROCEDURE(S): 1st MPJ fusion, correction hammertoes 2,3,4 right footConsent on chart: YesLABS:CBC:No results found for this basename: wbc,hb,hct,pltCMP:No results found for this basename: na,k,bun,creat,glucCOAGS:No results found for this basename: aptt,inrURINALYSIS:No results found for this basename:uket,nitrites,spgr,uprot ,leukest,uwbc,ubacteriaType AND cross: NoMedical Clearance: YesCXR/EKG: YesMedications/Preop Antibiotics: AncefALLERGIESAllergen Reactions- Bactrim [Sulfametho* HivesSurgical site identified: YesNPO: YesIV Fluids: YesRisks and benefits, complications, treatment options, expected outcome andrehabilitation explained, patient understands. All questions wereentertained and answered. Patient wishes to proceed with aboveprocedure(s).SIGNATURE: Laron Garrido DPM PATIENT NAME: Lesa JacksonmanDATE: April 06, 2018 : 7:09 AM Normal [facility] PT EDon 04-06-2018 PT ED HNO ID: [id number] thor: Jailene Kendall) JERRI Perezervice: (none)Author Type: Registered NurseType: Patient EducationFiled: 04/06/2018 11:40 AMNote Text:POST OP LEARNING RESPONSEINSTRUCTION PROVIDED TO: PatientMETHOD OF INSTRUCTION: Individual instructionWritten instruction - handoutsVerbal instructionPATIENT / FAMILY RESPONSE: Verbalizes understanding of: INFECTIONMANAGEMENT-Signs and symptoms of an infection and importance ofcontacting the physicianMEDICATION PRESCRIBED-Accurate knowledge of prescribed medication prior todischargeMEDICATION SIDE EFFECTS-Side effects associated with the medication thatwarrant a call to the physicianPAIN MANAGEMENT-Effective strategies to manage pain in addition to painmedicationPOST-OPERATIVE INSTRUCTIONS-Correct actions to take to reducepostoperative complicationsWORSENING CONDITION-Signs and symptoms of a worsening condition thatwarrant a call to the physicianFOLLOW-UP PLAN: Follow up phone call.SUPPLEMENTAL MATERIAL: NoneREFERRAL (RECOMMENDATION): NoneElectronically Signed By: Jailene Perez RN In Department: AMBULATORYSURGERY [facility] PT ED HNO ID: [id number] thor: Pastora SalasRn) JERRI Hineservice: (none)Author Type: Registered NurseType: Patient EducationFiled: 04/06/2018 7:29 AMNote Text:PRE OP LEARNING ASSESSMENTPROCEDURE/SURGERY: right footREADINESS TO LEARNCOGNITIVE ABILITY: Alert and orientedMOTIVATION TO LEARN: EagerFAMILY SUPPORT: High - Very involved in pt carePATIENT LEARNS BEST BY: Multiple MethodsFACTORS AFFECTING LEARNING: NonePHYSICAL LIMITATIONS AFFECTING LEARNING: NoneElectronically Signed By: Pastora Hines RN [facility] 03-27-2018 Protein mass conc HNO ID: [id number] thor: Katharine Kendall) JERRI Winchesterervice: (none)Author Type: Registered NurseType: Nursing Progress NoteFiled: 03/27/2018 10:58 AMNote Text:PACC Nurse Progress NoteHistory AND Physical:PACC Visit Date: 03/26/18Original HANDP Date: N/AED visit Date: N/AOutside HANDP Scanned Date: N/ALabs Within Last 6 Months:N/AImaging Within Last 12 Months:X-ray 01/06/18Cardiac Testing:N/ALast Menstrual Period:LMP Date: N/APostmenopausal >1yr: Yes,S/P Hysterectomy: NABMI Percentile (PEDS):N/ARisk Assessment:N/AAnesthesia Review:N/ANarrative:BMI 34Pre-op Considerations:N/AChart Check:COMPLETEDKatharine Winchester RNMay 2017 10:57 AM Normal [facility] HISTORY PHYSICALon HISTORY PHYSICAL HNO ID: [id number] thor: Kady (Route Salesman And Driver) Loriervice: (none)Author Type: Nurse PractitionerType: HANDPFiled: 03/26/2018 2:58 PMNote Text:HISTORY AND PHYSICAL EXAMINATIONSERVICE DATE: 03/26/2018SERVICE TIME: 2:34 PMPRIMARY CARE PHYSICIAN: ALVAREZ Gonzalez FOR VISIT:Lesa Torrez is a 57 year old female who is scheduled for PACC at [facility] of Dr. Elio Chen for consultation. My finalrecommendation will be communicated back to the requesting physician byway of shared medical record or letter.The patient has the following:ACTIVE PROBLEM LISTHallux Abductovalgus With BunionsHammertoeHav (Hallux Abducto Valgus), RightDeformity of Metatarsal, RightContracted, JointHammer Toe of Right FootHtn (Hypertension)MigrainesSubjective CHIEF COMPLAINT: Right foot painHPI: 57 year old female with right foot pain for > one year. Worse withwalking and certain shoes. Has attempted medication and different shoeswithout relief. Pain today 12/13.. Scheduled for 1st MPJ Arthrodesis Right,Amadou Shortening osteotomy 2nd/3rd Metatarsal right, 2nd, 3rd, 4th MPJcapsulotomy Right, Hammertoe Repair with Pinning digits 2-4 RightPAST MEDICAL HISTORYDiagnosis Date- HTN (hypertension)- MigrainesPAST SURGICAL HISTORYProcedure Laterality Date- LAPAROSCOPIC CHOLEYCYSTECTOMY Cholecystectomy, lap- PAST SURGICAL HISTORY OF 2009 right thumb arthroplasty- PAST SURGICAL HISTORY OF Left bunion- PAST SURGICAL HISTORY OF Left neuroma removalFAMILY HISTORYProblem Relation Age of Onset- sleep apnea [OTHER] FatherSOCIAL HISTORY:Social History Marital status: Single Spouse name: Years of education: Number of children:Social History Main Topics Smoking status: Never Smoker Smokeless tobacco: Never Used Alcohol use: Yes Comment: occ Drug use: NoPrior to Admission medications as of 03/26/18 1432Medication Sig Last Dose TakingtiZANidine (ZANAFLEX) 4 mg tablet Take 4 mg by mouth once daily. Yesbisoprolol-hydrochlorothiazide (ZIAC) 10-6.25 mg per tablet Yescalcium, elemental, tab Take 1 tablet by mouth twice daily. Yesmultivitamin (DAILY MULTIPLE) tablet Take 1 tablet by mouth once daily.Yesloratadine (CLARITIN) 10 mg tablet Take 10 mg by mouth once daily. Yespolyethylene glycol 3350 (MIRALAX) 17 gram packet Take 17 g by mouth oncedaily. Yesrizatriptan (MAXALT) 10 mg tablet Take 10 mg by mouth as needed. Mayrepeat in 2 hours if needed EofCnfzmlx-Sfuvmejzbrlcm-Waecddtt (EXCEDRIN MIGRAINE) 250-250-65 mg pertablet Take 1 tablet by mouth every 6 hours as needed. Yesnaproxen sodium (ALEVE) 220 mg tablet Take 220 mg by mouth as needed. YesNo medication comments found.ALLERGIESAllergen Reactions- Bactrim [Sulfametho* HivesREVIEW OF SYSTEMS:PAIN ASSESSMENT:General: No weight loss, malaise or fevers.Neuro: Postive for migraines , Negative for TIA's SeizuresRespiratory: No history of current cough or dyspnea, or pneumonia in thepast 6 weeks. No history of respiratory/pulmonary symptoms or problems., +snoringCardiovascular: Positive for: Hypertension, Negative for Chest Pain,DVT/PEGI: No history of GI symptoms or problems. No history of esophagealvarices, recent ascites, or ETOH greater than 2 drinks per day.: No history of dysuria, frequency or incontinence,, stones or chronickidney diseaseGYN: Negative for abnormal vaginal bleeding, abnormal vaginal discharge. : Denies, No LMP recorded. Patient is postmenopausal.Endocrine: No history of diabetes. Has not taken steroids within the past30 days. No history of endocrinological symptoms or problems.Hematology: No history of bleeding or clotting disorder. Pt is not takinganti-coagulation or platelet medications. No history of hematologicalsymptoms or problems.Oncology: No history of CA metastasis, chemo within 30 days, orradiotherapy within 90 days. Has not lost 10% of body wt in 6 months. Nohistory of oncological symptoms or problems.Psych: No history of psychiatric symptoms or problems.Musculoskeletal: See HPISkin: Negative for lesions, rash and itching.ObjectivePHYSICAL EXAM:VITALS:Pulse 62 Temp (Src) 99.8 (Temporal Artery) Resp 18 Ht 5' 0 (1.52m) Wt 175 lb (79.4kg) SpO2 98% LMP 03/26/2008 BMI 34.18 kg/(m2).General: Alert and oriented, No acute distress, ObeseSkin: Normal color, no rash, no lesions.HEENT: EOM, pupils equal, round and reactive., No carotid bruitsCardiovascular: Normal S1 AND S2, no rubs, murmurs or gallops. No JVD. Pulseregular.Lungs: Normal breath sounds, no wheezes or crackles.Abdomen: Soft, non-tender, no rigidity.Extremities: No deformity, no edema or tenderness, no joint swelling orclubbing.Neurological: Normal cognition and motor skills.Pulses: Carotid and radial pulses normal +2.Diagnostic tests reviewed for today's visit: No new labs or testsAssessmentASSESSMENTPatient has the following medical conditions which may affectperi-operative courseHTN - Well controlled Obesity- BMI 34MigrainesMETS:Climb a flight of stairs or walk up a hill (5.50 METs)Patient denies any chest pain or undue shortness of breath with the abovephysical activity.ASA Class: 3ANESTHESIA FINDINGS:Intubation History: No history of difficult intubationSignificant Anesthesia Considerations: NoneAirway Exam: General: Normal appearance Mallampati Score is CLASS II ULBT: Class II - Lower incisors can bite the upper lip below thevermillion line Neck: Normal appearance and function, Distance from hyoid to mentumduring neck extension is at least 3 finger breaths Mouth: Normal tongue size and Mouth opening greater than 2 finger breaths Dentition: Intact and Caps/crownsAirway History: No abnormal airway historySTOP BANG Score:Criteria:SnoringHypertensio nAge over 50 (57 year old)Score = 3PLANThis patient is optimally prepared for surgery.CONSULTS:Patient does not require consults for optimization at this time.The Following Tests/Procedures Have Been Initiated:Labs not indicated per PACC protocol, EKG not indicated per PACC protocolPlanned Anesthetic: MACInstructions Given to Patient:Patient given verbal and written preop instructions and voicescomprehension and compliance.SIGNATURE: Kady Kennedy APRN.CNP PATIENT NAME: Lesa JacksonmanDATE: March 26, 2018 : 2:34 PM PAGER/CONTACT #: Naida [facility] HOSPon 01-14-2018 HOSP Patient:Darryn Torrez ElizabetMRN: Height:5' 0 (1.524 m)Weight:175 lb (79.379 kg)Outpatient Medications as of 04/06/18:tiZANidine (ZANAFLEX) 4 mg tabletbisoprolol-hydrochlorothiaz haroldo (ZIAC) 10-6.25 mg per tabletcalcium, elemental, tabmultivitamin (DAILY MULTIPLE) tabletloratadine (CLARITIN) 10 mg tabletpolyethylene glycol 3350 (MIRALAX) 17 gram packetrizatriptan (MAXALT) 10 mg dyqzreEhgcxtn-Gkkvhorrhohbv-Zrmqf ine (EXCEDRIN MIGRAINE) 250-250-65 mg per tabletnaproxen sodium (ALEVE) 220 mg tabletAdmission/Clinic Administered Medications as of 04/06/18:lidocaine 10 mg/mL (1 %) 1-2 mg injection (XYLOCAINE)lactated ringers infusionceFAZolin 2 g in dextrose (iso-osmotic) 50 mL (ANCEFALYX)Problem List:Hallux abductovalgus with bunions [M20.10, M21.619]Hammertoe [M20.40]Hav (hallux abducto valgus), right [M20.11]Deformity of metatarsal, right [M21.961]Contracted, joint [M24.50]Hammer toe of right foot [M20.41]HTN (hypertension) [I10]Migraines [G43.909]Allergies:Bactrim [Sulfamethoxazole-Trimethoprim]Da te Verified: 03/26/18Lab ValuesNo results within the last 30 days for the following basenames: K,HCTNo progress notes entered within the past 30 days [facility] CNOVon 01-06-2018 CNOV Office Visit (LOORRM) Balwinder TORREZ ([id number]) 1960 FDate Time Provider Department01/06/18 3:45 PM ELIO CHEN LOORRTanvi During your visit today, we recorded the following information about you:Elio Chen DPM 01/06/2018 10:27 PM Unsigned Batch Records Clerk [facility] [address] [place] [address] CLINIC NOTE Department of Orthopaedics - William Chen D.P.M.NAME: LESA TORREZ NO.: [id number] OF SERVICE: 01/06/2018SUBJECTIVE: The patient is seen today for final surgical consultationregarding the right foot. She states she is pleased with the left foot andwanted the same thing done on the right foot essentially.PHYSICAL EXAMINATION: The patient is alert and oriented x3 in no apparentacute distress.Neurovascular: Intact and unchanged, right.Dermatologic: Unchanged.Ortho-Musculoskeletal: The patient has a significant hallux abductovalgusdeformity and markedly adducted 2nd toe, markedly abducted 3rd toe, severecontracture of the 2nd, 3rd, and 4th toes with substantial forefootderangement.RADIOGRAPHS: Radiographs of the right foot are consistent with clinicalfindings with a moderate hallux abductovalgus deformity, split 2nd and 3rdtoes, structurally long 2nd and 3rd metatarsals with contracture at the 2nd,3rd, and 4th MPJs.DIAGNOSIS:1. Significant hallux abductovalgus valgus/bunion deformity of the rightfoot.2. Structurally long 2nd and 3rd metatarsals of the right foot. 3.Significant hammertoe deformities digits 2, 3, and 4 of the right foot.4. Contracted 2nd, 3rd, and 4th metatarsophalangeal joints of the right foot.PLAN:1. Final surgical consultation regarding right foot. 2. Radiographs 3views of the right foot to assess the etiology of pain and deformity anddiscuss surgical planning. 3. I discussed the results of the clinical andradiographic examination with the patient in detail along with treatmentoptions. 4. I recommended mainly a right 1st MPJ arthrodesis, Weilshortening osteotomy at the 2nd and 3rd metatarsals, 2nd, 3rd, and 4th MPJcapsulotomy along with hammertoe repair of digits 2, 3, 4 with pinning. Iadvised we can perform it at the [facility] under MAC with a local fieldblock. We discussed the potential risks, benefits, complications, alternativesto treatment option. All questions were answered. No guarantees were given asresults were obtained. We discussed the postoperative management in detail.She would be partial weightbearing after surgery in the heel and the outsidepart of the foot with crutch or walk with the surgical shoe. Suture removal inapproximately 2 weeks. The patient would like to proceed. We will schedulethrough Jesusita.5. I advised to call if any questions or problems in the interim.Dictated By: Elio Chen D.P.M.Date Dictated: 01/06/2018Date Typed: [facility] 01/06/2018[facility]# [id number] Lucas Thurston 01/14/2018 9:12 AM SignedAddended by: LAWRENCE PHELPS on: 01/14/2018 09:12 AM Modules accepted: OrdersTranscription:Transcribed Clinic Note (mau) ID: [id number]: ELIO CHEN * * * This document has not been signed * * * * * * DRAFT COPY. THIS DOCUMENT IS NOT AVAILABLE FOR PATIENT CARE * * *Document text: [facility] [address] [place], [place] [address] CLINIC NOTE Department of Orthopaedics - [place] Elio Chen D.P.M.NAME: LESA TORREZ NO.: [id number] OF SERVICE: 01/06/2018SUBJECTIVE: The patient is seen today for final surgical consultationregarding the right foot. She states she is pleased with the left footand wanted the same thing done on the right foot essentially.PHYSICAL EXAMINATION: The patient is alert and oriented x3 in no apparentacute distress.Neurovascular: Intact and unchanged, right.Dermatologic: Unchanged.Ortho-Musculoskeletal: The patient has a significant hallux abductovalgusdeformity and markedly adducted 2nd toe, markedly abducted 3rd toe,severe contracture of the 2nd, 3rd, and 4th toes with substantialforefoot derangement.RADIOGRAPHS: Radiographs of the right foot are consistent with clinicalfindings with a moderate hallux abductovalgus deformity, split 2nd and3rd toes, structurally long 2nd and 3rd metatarsals with contracture atthe 2nd, 3rd, and 4th MPJs.DIAGNOSIS:1. Significant hallux abductovalgus valgus/bunion deformity of theright foot.2. Structurally long 2nd and 3rd metatarsals of the right foot. 3.Significant hammertoe deformities digits 2, 3, and 4 of the right foot.4. Contracted 2nd, 3rd, and 4th metatarsophalangeal joints of the rightfoot.PLAN:1. Final surgical consultation regarding right foot. 2. Radiographs 3views of the right foot to assess the etiology of pain and deformity anddiscuss surgical planning. 3. I discussed the results of the clinicaland radiographic examination with the patient in detail along withtreatment options. 4. I recommended mainly a right 1st MPJ arthrodesis,Amadou shortening osteotomy at the 2nd and 3rd metatarsals, 2nd, 3rd, and4th MPJ capsulotomy along with hammertoe repair of digits 2, 3, 4 withpinning. I advised we can perform it at the [facility] under MAC witha local field block. We discussed the potential risks, benefits,complications, alternatives to treatment option. All questions wereanswered. No guarantees were given as results were obtained. We discussedthe postoperative management in detail. She would be partialweightbearing after surgery in the heel and the outside part of the footwith crutch or walk with the surgical shoe. Suture removal inapproximately 2 weeks. The patient would like to proceed. We willschedule through Jesusita.5. I advised to call if any questions or problems in the interim.Dictated By: Jake Pena.P.M.Date Dictated: 01/06/2018Date Typed: girish 01/06/2018ELIZABETB# [id number] document [id number] only ------Referring Provider: SELF [200]Allergies As of Date: 01/06/2018 Noted Allergy ReactionBACTRIM (SULFAMETHOXAZOLE-TRIMETH* 015 4 - HivesDate Reviewed: 01/06/2018Reviewed by: Ketty Robertson Letsgofordinner - Fully AssessedReason for Visit: Pain (foot) [760]Primary Visit Diagnosis:Hallux valgus with bunions of right foot [M20.11, M21.611] Other Visit Diagnoses:Hammer toe of right foot [M20.41] Contracted, joint, multiple sites [M24.50] Metatarsal deformity, right [M21.961]Order(s):SURGICAL REQUEST - ELECTIVE [[id number]] Order #: [id number]: 1Prescriptions as of 01/06/2018 Sig: RIZATRIPTAN 10 MG DISINTEGRAT* BISOPROLOL 10 MG-HYDROCHLOROT* OXYCODONE-ACETAMINOPHEN 5 MG-* Take 1 tablet by mouth every * KETOROLAC 10 MG TABLET Take 1 tablet by mouth every * PROMETHAZINE 25 MG TABLET Take 1 tablet by mouth every * CALCIUM 500 MG TABLET Take 1 tablet by mouth twice * MULTIVITAMIN TABLET Take 1 tablet by mouth once d* LORATADINE 10 MG TABLET Take 10 mg by mouth once guzman* POLYETHYLENE GLYCOL 3350 17 G* Take 17 g by mouth once daily. RIZATRIPTAN 10 MG TABLET Take 10 mg by mouth as needed* GTRHRUE-LVVMZWKTVJKFD-UZGYVJN* Take 1 tablet by mouth every * NAPROXEN SODIUM 220 MG TABLET Take 220 mg by mouth as neede*Medication notes this encounter RIZATRIPTAN 10 MG DISINTEGRATING TABLET >> Ketty Robertson Letsgofordinner 01/06/2018 3:56 PM >> KETTY JIMENEZ Jan 06, 2018 3:56 PM Received from: External Pharmacy BISOPROLOL 10 MG-HYDROCHLOROTHIAZIDE 6.25 MG TABLET >> Ketty Robertson Letsgofordinner 01/06/2018 3:56 PM >> BRIAN REYNOLDS [facility] Har[employer]KETTY Jan 06, 2018 3:56 PM Received from: External PharmacyProblem List As Of Date 01/06/2018 Noted Resolved Hallux abductovalgus with bunions [M20.10, M21.*INVALID FOR* Jaden [M20.40] INVALID FOR* Status:Closed by ELIO CHEN DPM on 01/06/18 Normal [facility] PROGRESSon 01-06-2018 Protein mass conc HNO ID: [id number] thor: Jaqueline Ramos (Rt)ervice: (none)Author Type: TechnicianType: Progress NotesFiled: 01/06/2018 3:29 PMNote Text: Radiology Service Progress NotePATIENT NAME: Lesa TorrezMRN: [id number] OF SERVICE: January 06, 2018TIME: 3:29 PMPATIENT IDENTITY VERIFICATION COMPLETED USING TWO (2) METHODS: Patientconfirmed name verbally and Date of .PATIENT GENDER DATA: Female. status: : NoBreastfeeding status: NO.PATIENT RELEVANT IMPLANT DATA REVIEWED: YesRADIOLOGY DEPARTMENT: General X-ray: Exam(s) Completed: Lower ExtremityX-Ray(s): Foot, Right and Wt. Bearing:PERIPHERAL IV DATA: Not applicableSIGNED BY: Jaqueline Spaulding [facility] 2017 3:29 PM Normal [facility] XR FOOT 3V AP/LAT/OBL RTon 0 01-06-2018 XR FOOT 3V AP/LAT/OBL RT * * *Final Report* * *DATE OF EXAM: Jan 06 2018 3:31PM LZX [id number] - XR FOOT 3V AP/LAT/OBL RT / REASON: Pain, unspecified * * * * Physician Interpretation * * * * EXAMINATION: XR FOOT 3V AP/LAT/OBL RTHISTORY: chronic right foot pain bunion toe mis alignment Pain, unspecified .TECHNIQUE: XR FOOT 3V AP/LAT/OBL RT Laterality: RIGHT Number of different views (projections): 3 M: XB_1COMPARISON: NoneRESULT:Markedly deformed second through fifth toes with splaying of the second and third toes and, hammer and claw toe deformities. Moderate hallux valgus with prominent bunion. MTP mid and hindfoot joint spaces are preserved. Small calcaneal spurs with normal calcaneus.No other significant abnormality.IMPRESSION:Diffuse deformities of the second through small toes.Card Reader: PSCB Transcribe Date/Time: Jan 06 2018 3:32PDictated by : CHARITO KAN MDThis examination was interpreted and the report reviewed and electronically signed by: CHARITO KAN MD on Jan 06 2018 3:34PM [id number] Normal [facility] Encounters Encounter Date Encounter Type Care Provider Facility Start: 02-03-2024 End: 02-04-2024 ambulatory Clarisa L Brian Facility:[facility] Start: 10-22-2023 End: 10-23-2023 ambulatory Clarisa L Brian Facility:[facility] Start: 03-28-2023 ambulatory Clarisa Brian Facility:[facility] Start: 11-04-2022 End: 11-04-[address] DELON REAL Facility:[facility] Start: 08-28-2022 End: 10-12-[address] DELON REAL Facility:[facility] Start: 07-09-2022 End: 07-10-[address] DELON REAL Facility:[facility] Start: 06-19-2022 Encounter for genera l adult medical examination without abnormal findings DR DELON REAL [facility] Start: 06-18-2022 End: 06-19-[address] DELON REAL Facility:[facility] Start: 06-18-2022 End: 06-19-2022 Encounter for general adult medical examination without abnormal findings DR DELON REAL Facility:[facility] Start: 03-08-2022 End: 03-09-[address] DELON REAL Facility:[facility] Start: 11-22-2021 End: 11-23-[address] DELON REAL Facility:[facility] Start: 06-03-2018 End: 06-03-2018 Patient encounter ELIO CHEN [facility] Start: 05-15-2018 End: 05-19-2018 Patient encounter ELIO CHEN [facility] Start: 05-07-2018 End: 05-11-2018 Patient encounter ELIO CHEN [facility] Start: 05-07-2018 End: 05-07-2018 Patient encounter ELIO CHEN [facility] Start: 04-15-2018 End: 04-15-2018 Patient encounter ELIO CHEN [facility] Start: 04-06-2018 Patient encounter ELIO DEGROOT [facility] Start: 03-26-2018 End: 03-26-2018 Patient encounter ELIO CHEN [facility] Start: 01-06-2018 End: 01-06-2018 Patient encounter ELIO CHEN [facility] Payers Date Payer Category Payer Unknown [id number] 1961 Unknown [id number] 1960 Unknown [id number] 2.16.84 [id number] 1960 Unknown [id number] 2.16.84 [id number] 1960 Unknown [id number] 2.16.84 [id number] 1960 Unknown [id number] 2.16.84 [id number] 1960 Unknown [id number] 2.16.84 [id number] 1960 Unknown [id number] 2.16.84 [id number] 1960 Unknown [id number] 2.16.8 [id number] 1960 Unknown [id number] 2.16.8 [id number] Summary Purpose Family History No Family History Records FoundNo Family History Records FoundNo Family History Records Found Advance Directives No Advanced Directives Records FoundNo Advanced Directives Records FoundNo Advanced Directives Records Found Additional Source Comments INFORMATION SOURCE (unrecogn ized section and content) DATE CREATED AUTHOR 06/17/2018 [facility] DATE CREATED AUTHOR AUTHOR'S ORGANIZ ATION 11/04/2022 Eleni lackey DATE CREATED AUTHOR AUTHOR'S ORGANIZ ATION 03/27/2024 [facility] FOR RECORDS PERTAINING TO PATIENTS WHO ARE OR HAVE BEEN ENROLLED IN A CHEMICAL DEPENDENCY/SUBSTANCEABUSE PROGRAM, SOME INFORMATION MAY BE OMITTED. This clinical summary was aggregated from multiple sources. Caution should be exercised in using it in the provision of clinical care. This summary normalizes information from multiple sources, and as a consequence, information in this document may materially change the coding, format and clinical context of patient data. In addition, data may be omitted in some cases. CLINICAL DECISIONS SHOULD BE BASED ON THE PRIMARY CLINICAL RECORDS. [facility] [facility]. provides no warranty or guarantee of the accuracy or completeness of information in this document.
== END 2024-04-27 14:36 | disposition home or self-care (01) ==
LOC: EC 14:35
PROVIDERS: PCP Nurse Practitioner; Visit Provider Podiatrist Foot & Ankle Surgery
DX: M79.671 Pain in right foot (principal); M24.674 Ankylosis, right foot
CPT/HCPCS: 73630

== ENCOUNTER 2024-05-11 12:22 | Outpatient (OUT) | payer BC, SELFPAY ==
--- NOTE | 2024-05-11 12:26 | ECG_ITS ---
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
--- NOTE | 2024-05-11 13:16 | PM.PRESUREVA ---
History of Present Illness History of Present Illness Chief complaint: bunionette of right foot Narrative: Patient presents for preadmission testing. Please see HPI from Dr. Gonzalez dated April 27, 2024. Review of Systems ROS Narrative REVIEW OF SYSTEMS: Negative except as stated in HPI, ten or more systems reviewed. Constitutional: No fever, chills, weakness ENT: No sore throat or epistaxis Cardiovascular: No edema, chest pain, palpitations, or activity intolerance Respiratory: No shortness of breath, cough, or wheezing Gastrointestinal: No abdominal pain, constipation, diarrhea, or vomiting Genitourinary: No dysuria or hematuria Neurological: No numbness, tingling, weakness, or headache Psychiatric: No mood changes PFSH PFS Medical History (Updated 05/11/24 @ 13:00 by Laura Feng NP) Foot pain ?M79.673 - Pain in unspecified foot (ICD-10) Arthritis ?M19.90 - Unspecified osteoarthritis, unspecified site (ICD-10) Anemia ?D64.9 - Anemia, unspecified (ICD-10) Bunionette of right foot ?M21.621 - Bunionette of right foot (ICD-10) Seasonal allergies ?J30.2 - Other seasonal allergic rhinitis (ICD-10) Heartburn ?R12 - Heartburn (ICD-10) Migraine ?G43.909 - Migraine, unspecified, not intractable, without status migrainosus (ICD-10) Constipation ?K59.00 - Constipation, unspecified (ICD-10) IBS (irritable bowel syndrome) ?K58.9 - Irritable bowel syndrome without diarrhea (ICD-10) Hypertension ?I10 - Essential (primary) hypertension (ICD-10) Surgical History (Updated 05/11/24 @ 13:00 by Laura Feng NP) H/O hand surgery ?Z98.890 - Other specified postprocedural states (ICD-10) History of esophagogastroduodenoscopy (EGD) ?Z98.890 - Other specified postprocedural states (ICD-10) History of colonoscopy ?Z98.890 - Other specified postprocedural states (ICD-10) History of cholecystectomy ?Z90.49 - Acquired absence of other specified parts of digestive tract (ICD-10) History of foot surgery ?Z98.890 - Other specified postprocedural states (ICD-10) Family History (Updated 05/11/24 @ 13:00 by Laura Feng NP) Other Atrial fibrillation Family history of coronary artery disease Family history of heart disease Family history of hypertension Sleep apnea Social History (Updated 05/11/24 @ 12:51 by Laura Feng NP) Within the past year, how often did you have a drink containing alcohol: 2-4 times a month Smoking status: Never smoker Non-prescribed substance use: denies use Previous occupational history: Account Support Specialist Highest level of school completed/degree received: some college, no degree Meds Home Medications and Allergies Home Medications ?Medication ?Instructions ?Recorded ?Confirmed ?Type biotin 1 mg capsule 1 mg PO DAILY 05/11/24 05/11/24 History bisoprolol 10 1 tab PO QNOON 05/11/24 05/11/24 History mg-hydrochlorothiazide 6.25 mg tablet calcium 100 mg capsule mg PO 05/11/24 History cetirizine 10 mg tablet (Allergy 10 mg PO DAILY PRN allergy symptoms 05/11/24 05/11/24 History Relief (cetirizine)) meclizine 25 mg tablet 25 mg PO TID-QID PRN dizziness 05/11/24 05/11/24 History multivitamin 1 tab PO DAILY 05/11/24 05/11/24 History polyethylene glycol 3350 17 gram 17 g PO DAILY PRN constipation 05/11/24 05/11/24 History oral powder packet (Miralax) rizatriptan 10 mg disintegrating 10 mg PO Q2H PRN migraine headache 05/11/24 05/11/24 History tablet semaglutide 05/11/24 History Allergies Allergy/AdvReac Type Severity Reaction Status Date / Time Sulfa (Sulfonamide Allergy Hives Verified 05/11/24 12:45 Antibiotics) Exam Narrative Exam Narrative: Constitutional: Awake, alert, comfortable, well-appearing, nontoxic, interactive, vital signs as charted Head: Normocephalic, atraumatic Neck: Supple, normal appearance, normal range of motion, no meningeal signs, no lymphadenopathy Respiratory: No respiratory distress, breath sounds clear Cardiovascular: Regular rate and rhythm, strong and regular heart tones Skin: No rashes or induration, no lesions, only visible skin inspected Neuro: No neurological deficits, normal sensation Psychiatric: Oriented ?3, normal affect Assessment and Plan Assessment and Plan (1) Bunionette of right foot: (2) Foot pain: Plan Right fifth metatarsal head resection scheduled with Dr. Gonzalez May 20, 2024.
[2024-05-11 13:26] LABS: Basophils Percent Auto 0.4 % (0.2-2.0); Eosinophils Absolute Auto 0.1 10^3/uL (0.0-0.7); Eosinophils Percent Auto 2.3 % (0.9-7.0); Hematocrit 42.1 % (36.0-48.0); Hemoglobin 14.1 g/dL (12.0-16.0); Immature Granulocytes Abs Auto 0.01 10^3/uL (0.00-0.03); Immature Granulocytes Pct Auto 0.2 % (0.0-0.5); Lymphocytes Absolute Auto 1.4 10^3/uL (1.2-3.8); Lymphocytes Percent Auto 25.4 % (20.5-60.0); Mean Corpuscular HGB Conc 33.5 g/dL (29.9-35.2); Mean Corpuscular Hemoglobin 30.6 pg (26.7-34.0); Mean Corpuscular Volume 91.3 fL (81.0-99.0); Mean Platelet Volume 9.1 fL (9.5-13.5); Monocytes Absolute Auto 0.4 10^3/uL (0.3-0.8); Monocytes Percent Auto 7.6 % (1.7-12.0); Neutrophils Absolute Auto 3.7 10^3/uL (1.4-6.5); Neutrophils Percent Auto 64.1 % (43.0-75.0); Platelet Count 220 10^3/uL (150-450); Red Blood Count 4.61 10^6/uL (4.20-5.40); Red Cell Distribution Width 13.1 % (11.0-15.0); White Blood Count 5.7 10^3/uL (4.0-11.0)
[2024-05-11 13:47] LABS: Anion Gap 9.8; BUN Creatinine Ratio 23.2; Calcium 9.3 mg/dL (8.5-10.1); Chloride 105 mmol/L (98-107); Estimated GFR (African America >60 (>=60); Estimated GFR (Non-African Ame 59 (>=60); Glucose 85 mg/dL (74-106); Potassium 3.8 mmol/L (3.5-5.1); Sodium 140 mmol/L (136-145)
== END 2024-05-11 12:23 | disposition home or self-care (01) ==
PROVIDERS: PCP Nurse Practitioner; Visit Provider Podiatrist Foot & Ankle Surgery
DX: Z01.810 Encounter for preprocedural cardiovascular examination (principal); Z01.812 Encounter for preprocedural laboratory examination; Z01.818 Encounter for other preprocedural examination; M21.621 Bunionette of right foot
CPT/HCPCS: 80048; 85025; 93005; G0463

== ENCOUNTER 2024-05-20 09:58 | Day surgery (SDC) | payer BC, SELFPAY ==
[2024-05-11 13:14] VITALS: BP 127/87; PULSE 82; TEMP 36.4; O2SAT 97; BMI 29.3
[2024-05-20] VITALS (10 sets, daily range): BP systolic 113–144; BP diastolic 69–87; PULSE 73–85; TEMP 36.8–36.9; O2SAT 95–100; BMI 28.9
--- OUTSIDE RECORDS SUMMARY | 2024-05-20 10:03 | XMS_ITS | CCD ---
Author Organization [facility] Care Team Providers Care Sales Trainer Name Role Phone GUSTAVO, ZOFIAOPHER W Unavailable Unavailab le GUSTAVO, CHRISTOPHER W [...] Primary Care Unavailable AYANA FERRARO Attending Unavailable FARMINGTON, DR ELIZABETH Castro Consulting Unavailable AYANA FERRARO Admitting Unavailable AYANA FERRARO Consulting Unavailable ADDIE, DR DELON Landry Primary Care Unavailable LAQUITA PITT Admitting Unavailable LAQUITA PITT Attending Unavailable ADDIE, DR DELON Landry Primary Care Unavailable JEANE, DR OLGA Bihsop Admitting Unavailable JEANE, DR OLGA Bishop Attending [...] Translations: [SULFAMETHOXAZOLE-TR IMETHOPRIM] Drug Allergy 5 [facility] Repository (2 sources) Sulfamethoxazole / Trimethoprim; Translations: [Bactrim] Drug Allergy 3 [facility] Repository Problems Active Problems Problem Classification Problem [...] - Clinical Noteon Retail - Clinical Note [id number]#1.00TIFF [facility] Ambulatory Visit Summaryon 0 02-03-2024 Ambulatory [...] adult Non-smoker Duration: 10 Days Pickup at [facility]/pharmacy #[id number] Unchanged bisoprolol-hydrochlorothiazide (bisoprolol-hydrochlorothiazide 10 mg-6.25 mg Tab) 1 Tablets By Mouth Every day Unchanged cetirizine (Zyrtec) Unchanged polyethylene glycol 3350 (MiraLax) Unchanged rizatriptan (rizatriptan 10 mg Dis Tab) 1 Tablets Sublingual As Directed Unchanged semaglutide (Ozempic 8 mg/ 3 mL (2 mg dose) subcutaneous solution) 2 Milligram Subcutaneous Every week INJECT 2MG SUBCUTANEOUSLY ONCE A WEEK Pharmacy Information [facility]/pharmacy #[id number]: [address] [place], [place] [phone] Allergies Bactrim (Unknown) Problems Ongoing - Any [...] choosing us for your care. Normal Duran [facility] Family Medicine Office/Clini c Noteon 02-03-2024 [...] day(s), # 20 cap(s), Refills(s) 0, [id number], cm, 02/03/24 15:16:00 EDT, Height/Length Dosing, 57.2, kg, 02/03/24 15:16:00 EDT, Weight Dosing 2. BMI 24.0-24.9, adult (Z68.24: Body mass index [BMI] 24.0-24.9, adult) BMI education complete Ordered: cephalexin, 500 mg = 1 cap(s), Oral, BID, X 10 day(s), # 20 cap(s), Refills(s) 0, Pharmacy: [facility]/pharmacy #[id number], 153, cm, 02/03/24 15:16:00 EDT, Height/Length Dosing, 57.2, kg, 02/03/24 15:16:00 EDT, Weight Dosing 3. Non-smoker (Z78.9: Other specified health status) continue not smoking Ordered: cephalexin, 500 mg = 1 cap(s), Oral, BID, X 10 day(s), # 20 cap(s), Refills(s) 0, Pharmacy: [facility]/pharmacy #[id number], 153, cm, 02/03/24 15:16:00 EDT, Height/Length Dosing, 57.2, kg, 02/03/24 15:16:00 EDT, Weight Dosing Orders: tizanidine, 2 mg = 1 tab(s), Oral, Bedtime, # 30 tab(s), Refills(s) 0, Pharmacy: [facility]/pharmacy #[id number], 153, cm, 03/13/23 13:19:00 EDT, [...] influenza virus vaccine, inactivated 08/16/2019 Recorded Normal [facility] Comment on above: Result Comment: Elec tronically Signed By: Clarisa Lane\.br\Date and Time Signed: 02/03/24 15:31 EDT Consultation Noteon 11-28-19 Consultation Note [id number]#1.00TIFF Normal [facility] Family Medicine Office/Clini c Noteon 10-22-2023 [...] day(s), # 14 tab(s), Refills(s) 0, Pharmacy: [facility]/pharmacy #[id number], 153, cm, 10/22/23 14:22:00 EST, Height/Length Dosing, 67.1, kg, 10/22/23 14:22:00 EST, Weight Dosing methylPREDNISolone, = 1 packet(s), Oral, As Directed, as directed on package labeling, X 6 day(s), # 21 tab(s), Refills(s) 0, Pharmacy: [facility]/pharmacy #[id number], 153, cm, 10/22/23 14:22:00 EST, [...] day(s), # 14 tab(s), Refills(s) 0, [id number], 153, cm, 10/22/23 14:22:00 EST, Height/Length Dosing, 67.1, kg, 10/22/23 14:22:00 EST, Weight Dosing methylPREDNISolone, = 1 packet(s), Oral, As Directed, as directed on package labeling, X 6 day(s), # 21 tab(s), Refills(s) 0, [id number], 153, cm, 10/22/23 14:22:00 EST, Height/Length Dosing, 67.1, kg, 10/22/23 14:22:00 EST, Weight Dosing 4. Non-smoker (Z78.9: Other specified health status) continue not smoking Ordered: cefuroxime, 500 mg = 1 tab(s), Oral, BID, X 7 day(s), # 14 tab(s), Refills(s) 0, [id number], 153, cm, 10/22/23 14:22:00 EST, Height/Length Dosing, 67.1, kg, 10/22/23 14:22:00 EST, Weight Dosing methylPREDNISolone, = 1 packet(s), Oral, As Directed, as directed on package labeling, X 6 day(s), # 21 tab(s), Refills(s) 0, Pharmacy: [facility]/pharmacy #[id number], 153, cm, 10/22/23 14:22:00 EST, [...] concerns: No., 10/22/2023 (more content not included)... [facility] Comment on above: Result Comment: Elec tronically Signed By: Clarisa Lane\.br\Date and Time Signed: 10/22/23 15:25 EST Provider Letteron 10-22-2023 Provider Letter (Inserted Image. Bebe ble to display) October 22, 2023 LESA TORREZ [address] [place] [id number] : 1960 To Whom It May Concern, Please excuse above patient from work. Date of Illness: From: 21 October 2023 To: 22 October 2023 May Return to Work On: 24 October 2023 Restrictions: None Comments: Please call the office with any questions Sincerely, Family Medicine [address] [address] [facility] Consultation Noteon 09-04-20 Consultation Note [id number]#1.00TIFF [facility] PT - Progress Noteson 2022 PT - Progress Notes [id number]#1.00CD:127 [facility] Retail - Clinical Noteon Retail - Clinical Note [id number]#1.00CD:127 [facility] Consultation Noteon 07-17-20 Consultation Note [id number]#1.00CD:127 [facility] Formson 07-10-2023 Forms [id number]#1.00CD:127 [facility] PT - Progress Noteson 2022 PT - Progress Notes [id number]#1.00CD:127 [facility] PT - Progress Noteson 2022 PT - Progress Notes [id number]#1.00CD:127 [facility] Physician Orderon 06-05-2023 Physician Order [id number]#1.00CD:127 [facility] Physician Order [id number]#1.00CD:127 [facility] Retail - Clinical Noteon Retail - Clinical Note [id number]#1.00CD:127 [facility] Consultation Noteon 05-27-20 Consultation Note [id number]#1.00CD:127 [facility] Pre-Certification Formon Pre-Certification Form [id number]#1.00CD:127 Normal [facility] CBC AUTO DIFFon 11-04-2022 BASO # 0.0 103/ul Normal 0.0-0.1 [facility] Comment on above: Performed By: #### C BC #### [facility] [address] [address] [address] Sae Chapman Basophils/100 WBC (Bld) 0.4 % Normal 0.2-2.0 [facility] Comment on above: Performed By: #### C BC #### [facility] [address] [address] [address] Sae Chapman EO # 0.1 103/ul Normal 0.0-0.7 [facility] Comment on above: Performed By: #### C BC #### [facility] [address] [address] [address] Sae Chapman Eosinophils/100 WBC (Bld) 1.1 % Normal 0.9-7.0 [facility] Comment on above: Performed By: #### C BC #### [facility] [address] [address] [address] Sae Chapman Erythrocyte distribution width (RBC) [Ratio] 12.8 % Normal 11.0-15.0 [facility] Comment on above: Performed By: #### C BC #### [facility] [address] [address] [address] Sae Chapman Hematocrit (Bld) [Volume fraction] 45.0 % Normal 36.0-48.0 [facility] Comment on above: Performed By: #### C BC #### [facility] [address] [address] [address] Sae Chapman Hemoglobin (Bld) [Mass/Vol] 15.4 g/dL Normal 12.0-16.0 [facility] Comment on above: Performed By: #### C BC #### [facility] [address] [address] [address] Sae Chapman IG # 0.02 10e3/ul Normal 0.00-0.03 [facility] Comment on above: Performed By: #### C BC #### [facility] [address] [place] [address] Dr. Sae Chapman IG % 0.2 % Normal 0.0-0.5 [facility] Comment on above: Performed By: #### C BC #### [facility] [address] [place] [address] Dr. Sae Chapman LYMPH # 1.4 103/ul Normal 1.2-3.8 [facility] Comment on above: Performed By: #### C BC #### [facility] [address] [place] [address] Dr. Sae Chapman Lymphocytes/100 WBC (Bld) 12.6 % Critically low 20.5-60.0 [facility] Comment on above: Performed By: #### C BC #### [facility] [address] [place] [address] Dr. Sae Chapman MANUAL DIFF REQ NO Normal [facility] Comment on above: Performed By: #### C BC #### [facility] [address] [place] [address] Dr. Sae Chapman MCH (RBC) [Entitic mass] 30.0 pg Normal 26.7-34.0 [facility] Comment on above: Performed By: #### C BC #### [facility] [address] [place] [address] Dr. Sae Chapman MCHC (RBC) [Mass/Vol] 34.2 g/dL Normal 29.9-35.2 [facility] Comment on above: Performed By: #### C BC #### [facility] [address] [place] [address] Dr. Sae Chapman MCV (RBC) [Entitic vol] 87.7 fL Normal 81.0-99.0 [facility] Comment on above: Performed By: #### C BC #### [facility] [address] [place] [address] Dr. Sae Chapman MONO # 0.7 103/ul Normal 0.3-0.8 [facility] Comment on above: Performed By: #### C BC #### [facility] [address] [place] [address] Dr. Sae Chapman Monocytes/100 WBC (Bld) 6.2 % Normal 1.7-12.0 [facility] Comment on above: Performed By: #### C BC #### [facility] [address] [place] [address] Dr. Sae Chapman NEUT # 8.5 103/ul Critically high 1.4-6.5 [facility] Comment on above: Performed By: #### C BC #### [facility] [address] [place] [address] Dr. Sae Chapman Neutrophils/100 WBC (Bld) 79.5 % Critically high 43.0-75.0 [facility] Comment on above: Performed By: #### C BC #### [facility] [address] [place] [address] Dr. Sae Chapman Platelet mean volume (Bld) [Entitic vol] 9.1 fL Critically low 9.5-13.5 [facility] Comment on above: Performed By: #### C BC #### [facility] [address] [place] [address] Dr. Sae Chapman PLT 259 103/ul Normal 150-450 [facility] Comment on above: Performed By: #### C BC #### [facility] [address] [place] [address] Dr. Sae Chapman RBC 5.13 106/ul Normal 4.20-5.40 [facility] Comment on above: Performed By: #### C BC #### [facility] [address] [place] [address] Dr. Sae Chapman WBC 10.7 103/ul Normal 4.0-11.0 [facility] Comment on above: Performed By: #### C BC #### [facility] [address] [place] [address] Dr. Sae Chapman PROF CHEM 8 (BAS METB)on Anion gap [Moles/Vol] 13.6 mmol/L Normal [facility] Comment on above: Performed By: #### B MP #### [facility] [address] [place] [address] Dr. Sae Chapman Calcium [Mass/Vol] 9.8 mg/dL Normal 8.5-10.1 [facility] Comment on above: Performed By: #### B MP #### [facility] [address] [address] [address] Sae Chapman Chloride [Moles/Vol] 100 mmol/L Normal 98-107 [facility] Comment on above: Performed By: #### B MP #### [facility] [address] [address] [address] Sae Chapman CO2 [Moles/Vol] 29.2 mmol/L Normal 21.0-32.0 [facility] Comment on above: Performed By: #### B MP #### [facility] [address] [place] [address] Dr. Sae Chapman Creatinine [Mass/Vol] 0.99 mg/dL Normal 0.55-1.02 [facility] Comment on above: Performed By: #### B MP #### [facility] [address] [address] [address] Sae Chapman EGFR-AF MEXICAN >60 Normal >=60 [facility] Comment on above: Performed By: #### B MP #### [facility] [address] [place] [address] Dr. Sae Chapman EGFR-NON AF MEXICAN 56 mL/min/1.73m2 Critically low >=60 [facility] Comment on above: Performed By: #### B MP #### [facility] [address] [address] [address] Sae Chapman Glucose [Mass/Vol] 143 mg/dL Critically high 74-106 [facility] Comment on above: Performed By: #### B MP #### [facility] [address] [address] [address] Sae Chapman Potassium [Moles/Vol] 3.8 mmol/L Normal 3.5-5.1 [facility] Comment on above: Performed By: #### B MP #### [facility] [address] [address] [address] Sae Chapman Sodium [Moles/Vol] 139 mmol/L Normal 136-145 [facility] Comment on above: Performed By: #### B MP #### [facility] [address] [place], [place] [address] Dr[address] Sae Chapman Urea nitrogen [Mass/Vol] 15.0 mg/dL Normal 7.0-18.0 [facility] Comment on above: Performed By: #### B MP #### [facility] [address] [place], [place] [address] Dr. Sae Chapman Urea nitrogen/Creatini ne [Mass ratio] 15.2 mg/mg Normal [facility] Comment on above: Performed By: #### B MP #### [facility] [address] [place], [place] [address] Dr. Sae Chapman MG MAMM SCREEN 3D OANH CADon 07-09-2022 MG MAMM SCREEN 3D OANH CAD Patient: LESA TORREZ Exam Date: 07/09/2022 : 1960 Gender:F Ordering : DR DELON REAL . Admission #: [id number] Family : Order #: [id number] CLICK HERE TO VIEW EXAM RADIOLOGY REPORT [...] Treatments None Family Cancers None LOCATION: [facility] BREAST COMPOSITION: Heterogeneously dense,which may obscure [...] Grossman M.D. on 07/10/2022 at 10:35 Normal [facility] CBC AUTO DIFFon 06-18-2022 BASO # 0.0 103/ul Normal 0.0-0.1 [facility] Comment on above: Performed By: #### C BC ####[facility] [address] [place], [place] [address]Dr. Sae Chapman Basophils/100 WBC (Bld) 0.6 % Normal 0.2-2.0 [facility] Comment on above: Performed By: #### C BC ####[facility] [address] [place], [place] [address]Dr. Sae Chapman EO # 0.2 103/ul Normal 0.0-0.7 [facility] Comment on above: Performed By: #### C BC ####[facility] [address] [place], [place] [address]Dr. Sae Chapman Eosinophils/100 WBC (Bld) 3.3 % Normal 0.9-7.0 [facility] Comment on above: Performed By: #### C BC ####[facility] [address] [place], [place] [address]Dr. Sae Chapman Erythrocyte distribution width (RBC) [Ratio] 12.7 % Normal 11.0-15.0 [facility] Comment on above: Performed By: #### C BC ####[facility] [address] [place], [place] [address]Dr. Sae Chapman Hematocrit (Bld) [Volume fraction] 42.2 % Normal 36.0-48.0 [facility] Comment on above: Performed By: #### C BC ####[facility] [address] [place], [place] [address]Dr. Sae Chapman Hemoglobin (Bld) [Mass/Vol] 14.2 g/dL Normal 12.0-16.0 [facility] Comment on above: Performed By: #### C BC ####[facility] [address] [place], [place] [address]Dr. Sae Chapman IG # 0.00 10e3/ul Normal 0.00-0.03 [facility] Comment on above: Performed By: #### C BC ####[facility] [address] [place], [place] [address]Dr. Sae Chapman IG % 0.0 % Normal 0.0-0.5 [facility] Comment on above: Performed By: #### C BC ####[facility] [address] [address]DrGabrielle Sae Ari LYMPH # 1.6 103/ul Normal 1.2-3.8 [facility] Comment on above: Performed By: #### C BC ####[facility] [address] [address]DrGabrielle Sae Ari Lymphocytes/100 WBC (Bld) 29.8 % Normal 20.5-60.0 [facility] Comment on above: Performed By: #### C BC ####[facility] [address] [place], [place] [address]DrGabrielle Jackideirdre Chapman MANUAL DIFF REQ NO Normal [facility] Comment on above: Performed By: #### C BC ####[facility] [address] [place], [place] [address]DrGabrielle Jackideirdre Chapman MCH (RBC) [Entitic mass] 30.5 pg Normal 26.7-34.0 [facility] Comment on above: Performed By: #### C BC ####[facility] [address] [place], [place] [address]Dr. Sae Ari MCHC (RBC) [Mass/Vol] 33.6 g/dL Normal 29.9-35.2 [facility] Comment on above: Performed By: #### C BC ####[facility] [address] [place], [place] [address]DrGabrielle Jackideirdre Chapman MCV (RBC) [Entitic vol] 90.6 fL Normal 81.0-99.0 [facility] Comment on above: Performed By: #### C BC ####[facility] [address] [place], [place] [address]DrGabrielle Chapman MONO # 0.5 103/ul Normal 0.3-0.8 [facility] Comment on above: Performed By: #### C BC ####[facility] [address] [place], [place] [address]DrGabrielle Chapman Monocytes/100 WBC (Bld) 8.6 % Normal 1.7-12.0 [facility] Comment on above: Performed By: #### C BC ####[facility] [address] [address]DrGabrielle Chapman NEUT # 3.0 103/ul Normal 1.4-6.5 [facility] Comment on above: Performed By: #### C BC ####[facility] [address] [address]DrGabrielle Chapman Neutrophils/100 WBC (Bld) 57.7 % Normal 43.0-75.0 [facility] Comment on above: Performed By: #### C BC ####[facility] [address] [address]DrGabrielle Chapman Platelet mean volume (Bld) [Entitic vol] 9.1 fL Critically low 9.5-13.5 [facility] Comment on above: Performed By: #### C BC ####[facility] [address] [address]Dr. Sae Chapman PLT 254 103/ul Normal 150-450 [facility] Comment on above: Performed By: #### C BC ####[facility] [address] [address]DrGabrielle Chapman RBC 4.66 106/ul Normal 4.20-5.40 [facility] Comment on above: Performed By: #### C BC ####[facility] [address] [address]DrGabrielle Chapman WBC 5.2 103/ul Normal 4.0-11.0 [facility] Comment on above: Performed By: #### C BC ####[facility] [address] [address]DrGabrielle Chapman GLYCOHEMOGLOBIN A1Con 2021 ADA RECOMMENDATION SEE BELOW Normal [facility] Comment on above: Result Comment: ADA RECOMMENDED LIMIT 4.0 - 6.0 ADA THERAPEUTIC TARGET < 7.0 ACTION SUGGESTED > 7.0 Performed By: #### A 1C #### [facility] [address] [address] [address] Sae Chapman Glucose [Mass/Vol] 103 mg/dL Normal [facility] Comment on above: Performed By: #### A 1C #### [facility] [address] [address] [address] Sae Chapman HbA1c (Bld) [Mass fraction] 5.2 % Normal 4.5-6.2 [facility] Comment on above: Performed By: #### A 1C #### [facility] [address] [address] [address] Sae Chapman LIPID PROFILEon 06-18-2022 CHOL-HDL RATIO NORM SEE BELOW Normal [facility] Comment on above: Result Comment: 3.3 - 4.4 LOW RISK 4.4 - 7.1 AVERAGE RISK 7.1 - 11.0 MODERATE RISK >11.0 HIGH RISK Performed By: #### C MP, LIPID, TSH #### [facility] [address] [place] [address] Dr. Sae Chapman Cholesterol [Mass/Vol] 178 mg/dL Normal <=200 [facility] Comment on above: Performed By: #### C MP, LIPID, TSH #### [facility] [address] [address] [address] Sae Chapman Cholesterol in HDL [Mass/Vol] 41 mg/dL Normal 40-60 [facility] Comment on above: Performed By: #### C MP, LIPID, TSH #### [facility] [address] [address] [address] Sae Chapman Cholesterol in LDL [Mass/Vol] 101.6 mg/dL Normal [facility] Comment on above: Performed By: #### C MP, LIPID, TSH #### [facility] [address] [address] [address] Sae Chapman Cholesterol.total /Cholesterol in HDL [Mass ratio] 4.3 {ratio} Normal [facility] Comment on above: Performed By: #### C MP, LIPID, TSH #### [facility] [address] [address] [address] Sae Chapman HDL NORMAL > or = 60 mg/dl - LO W CARDIOVASCULAR RISK <40 mg/dl - HIGH CARDIOVASCULAR RISK Normal [facility] Comment on above: Performed By: #### C MP, LIPID, TSH #### [facility] [address] [address] [address] Sae Chapman LDL CALC NORMAL SEE BELOW Normal [facility] Comment on above: Result Comment: <100 mg/dl OPTIMAL 100 - 129 mg/dl NEAR OR ABOVE OPTIMAL 130 - 159 mg/dl BORDERLINE HIGH 160 - 189 mg/dl HIGH >190 mg/dl VERY HIGH Performed By: #### C MP, LIPID, TSH #### [facility] [address] [address] [address] Sae Chapman Triglyceride [Mass/Vol] 177 mg/dL Critically high <=150 [facility] Comment on above: Performed By: #### C MP, LIPID, TSH #### [facility] [address] [place] [address] Dr. Sae Chapman VLDL CALC 35.4 mg/dL Normal [facility] Comment on above: Performed By: #### C MP, LIPID, TSH #### [facility] [address] [address] [address] Sae Chapman PROF 14(COMP METB)on 022 Albumin [Mass/Vol] 3.9 g/dL Normal 3.4-5.0 [facility] Comment on above: Performed By: #### C MP, LIPID, TSH #### [facility] [address] [place] [address] Dr. Sae Chapman Albumin/Globulin [Mass ratio] 1.3 {ratio} Normal [facility] Comment on above: Performed By: #### C MP, LIPID, TSH #### [facility] [address] [address] [address] Sae hCapman ALP [Catalytic activity/Vol] 58 U/L Normal 46-116 [facility] Comment on above: Performed By: #### C MP, LIPID, TSH #### [facility] [address] [address] [address] Sae Chapman ALT [Catalytic activity/Vol] 23 U/L Normal 14-59 [facility] Comment on above: Performed By: #### C MP, LIPID, TSH #### [facility] [address] [address] [address] Sae Chapman Anion gap [Moles/Vol] 10.8 mmol/L Normal [facility] Comment on above: Performed By: #### C MP, LIPID, TSH #### [facility] [address] [address] [address] Sae Chapman AST [Catalytic activity/Vol] 16 U/L Normal 15-37 [facility] Comment on above: Performed By: #### C MP, LIPID, TSH #### [facility] [address] [place] [address] Dr. Sae Chapman Bilirubin [Mass/Vol] 0.4 mg/dL Normal 0.2-1.0 [facility] Comment on above: Performed By: #### C MP, LIPID, TSH #### [facility] [address] [place] [address] Dr. Sae Chapman Calcium [Mass/Vol] 9.1 mg/dL Normal 8.5-10.1 [facility] Comment on above: Performed By: #### C MP, LIPID, TSH #### [facility] [address] [place] [address] Dr. Sae Chapman Chloride [Moles/Vol] 102 mmol/L Normal 98-107 [facility] Comment on above: Performed By: #### C MP, LIPID, TSH #### [facility] [address] [place] [address] Dr. Sae Chapman CO2 [Moles/Vol] 30.0 mmol/L Normal 21.0-32.0 [facility] Comment on above: Performed By: #### C MP, LIPID, TSH #### [facility] [address] [place] [address] Dr. Sae Chapman Creatinine [Mass/Vol] 0.93 mg/dL Normal 0.55-1.02 [facility] Comment on above: Performed By: #### C MP, LIPID, TSH #### [facility] [address] [place] [address] Dr. Sae Chapman EGFR-AF MEXICAN >60 Normal >=60 [facility] Comment on above: Performed By: #### C MP, LIPID, TSH #### [facility] [address] [address] [address] Sae Chapman EGFR-NON AF MEXICAN >60 Normal >=60 [facility] Comment on above: Performed By: #### C MP, LIPID, TSH #### [facility] [address] [address] [address] Sae Chapman Globulin (S) [Mass/Vol] 3.1 g/dL Normal [facility] Comment on above: Performed By: #### C MP, LIPID, TSH #### [facility] [address] [address] [address] Sae Chapman Glucose [Mass/Vol] 97 mg/dL Normal 74-106 [facility] Comment on above: Performed By: #### C MP, LIPID, TSH #### [facility] [address] [place] [address] Dr. Sae Chapman Potassium [Moles/Vol] 3.8 mmol/L Normal 3.5-5.1 [facility] Comment on above: Performed By: #### C MP, LIPID, TSH #### [facility] [address] [address] [address] Sae Chapman Protein [Mass/Vol] 7.0 g/dL Normal 6.4-8.2 [facility] Comment on above: Performed By: #### C MP, LIPID, TSH #### [facility] [address] [address] [address] Sae Chapman Sodium [Moles/Vol] 139 mmol/L Normal 136-145 [facility] Comment on above: Performed By: #### C MP, LIPID, TSH #### [facility] [address] [address] [address] Sae Chapman Urea nitrogen [Mass/Vol] 13.0 mg/dL Normal 7.0-18.0 [facility] Comment on above: Performed By: #### C MP, LIPID, TSH #### [facility] [address] [address] [address] Sae Chapman Urea nitrogen/Creatini ne [Mass ratio] 14.0 mg/mg Normal [facility] Comment on above: Performed By: #### C MP, LIPID, TSH #### [facility] [address] [place] [address] Dr. Sae Chapman TSHon 06-18-2022 TSH 1.156 uIU/mL Normal 0.358-3.74 0 [facility] Comment on above: Performed By: #### C MP, LIPID, TSH #### [facility] [address] [place] [address] Dr. Sae Chapman ASYMPTOMATIC COVID-19 ANTIGE Non 03-08-2022 EUA Statement SEE BELOW Normal [facility] Comment on above: Result Comment: This test [...] sooner. Performed By: #### C VDAGA #### [facility] [address] [place] [address] Dr. Sae Chapman SARS-CoV-2 (COVID-19) RNA REMIGIO+probe Ql (Unsp spec) Negative Normal NEGATIVE [facility] Comment on above: Result Comment: Nega tive results are presumptive. They do not preclude infection and should not be used as the sole basis for treatment decisions. Additional confirmatory testing by a molecular method should be considered. Performed By: #### C VDAGA #### [facility] [address] [place] [address] Dr. Sae Chapman XR ANKLE OANH MIN [...] by: ELIZABETH HENSLEY Date: 2021-11-22 11:13 Normal [facility] CNCOon 06-15-2018 CNCO Letter TextChristoph BLAINE ThompsonMKOLCZUN [id number] [id number]: Djxuef 2017Re: Lesa Torrez415 [facility] [address]RPG: [id number] Whom It May Concern:This is to certify [...] 06-03-2018 CNOV Office Visit (LOORRM) Balwinder TORREZ ([id number]) 1960 FDate Time Provider Department06/03/18 10:45 AM [...] [M20.11, M21.611]Order(s):XR FOOT GENERAL 3V AP/LAT/OBL RT [[id number]] Order #: [id number] FUTUREPrescriptions as of 06/03/2018 Sig: PROMETHAZINE 25 [...] Take 10 mg by mouth as needed* WSMNJNC-ATQASRUOZGTTS-RQVINBB* Take 1 tablet by mouth every * [...] Status:Closed by KETTY JIMENEZ on 06/03/18 Normal [facility] PROGRESSon 06-03-2018 Protein mass conc HNO ID: [id number] thor: Rafi (Rt) Shyanne Hilton: (none)Author Type: TechnicianType: Progress NotesFiled: 06/03/2018 10:32 AMNote Text: Radiology Service Progress NotePATIENT NAME: Lesa TorrezMRN: [id number] OF SERVICE: June 03, 2018TIME: 10:31 AMPATIENT IDENTITY VERIFICATION COMPLETED USING TWO (2) METHODS: Patientconfirmed name verbally and ID band matches..PATIENT GENDER DATA: Female. status: : NoBreastfeeding status: NO.PATIENT RELEVANT IMPLANT DATA REVIEWED: Not ApplicableRADIOLOGY DEPARTMENT: General X-ray: Exam(s) Completed: Lower ExtremityX-Ray(s): Foot, Right:PERIPHERAL IV DATA: Not applicableSIGNED BY: Rafi Hilton [facility]ugu 2017 10:31 AM Normal [facility] XR FOOT 3V AP/LAT/OBL RTon 0 [...] is slightly improved.IMPRESSION:Postsurgical changes right foot without complication.Director Of Government Sales: DAPHNE Transcribe Date/Time: Jun 03 2018 11:47ADictated by : Candice GONSALVES examination was interpreted and the report reviewed and electronically signed by: SHANNON TA MD on Jun 03 2018 11:48AM [id number] Normal [facility] PROGRESSon 06-02-2018 Protein mass conc HNO ID: [id number] thor: Elio Reidervice: (none)Author Type: PhysicianType: Progress [...] any questions or problems interimChbennie Chen DPM [facility] CNOVon 05-15-2018 CNOV Office Visit (LOORRM) Balwinder TORREZ ([id number]) 1960 FDate Time Provider Department05/15/18 2:30 PM [...] right [M21.961]Order(s):XR FOOT GENERAL 3V AP/LAT/OBL RT [[id number]] Order #: [id number] FUTUREPrescriptions as of 05/15/2018 Sig: PROMETHAZINE 25 [...] Take 10 mg by mouth as needed* ZVUBFSU-FZRDFEFCAHQKO-AUWAGDK* Take 1 tablet by mouth every * [...] by ELIO CHEN DPM on 05/15/18 Normal [facility] PROGRESSon 05-15-2018 Protein mass conc HNO ID: [id number] thor: Ivelisse (Rt) Weeks, TechService: (none)Author Type: TechnicianType: Progress NotesFiled: 05/15/2018 2:08 PMNote Text: Radiology Service Progress NotePATIENT NAME: Lesa TorrezMRN: [id number] OF SERVICE: May 15, 2018TIME: 2:08 PMPATIENT IDENTITY VERIFICATION COMPLETED USING TWO (2) METHODS: Patientconfirmed name verbally and Date of .PATIENT GENDER DATA: Female. status: : NoBreastfeeding status: NO.PATIENT RELEVANT IMPLANT DATA REVIEWED: Not ApplicableRADIOLOGY DEPARTMENT: General X-ray: Exam(s) Completed: Lower ExtremityX-Ray(s): Foot, Right and Wt. Bearing:PERIPHERAL IV DATA: Not applicableSIGNED BY: Ivelisse JoyRTJuly 2017 2:08 PM Normal [facility] XR FOOT 3V AP/LAT/OBL RTon 0 [...] the forefoot.No other significant abnormality.IMPRESSION:Stable post operative examination.Director Of Government Sales: PSCB Transcribe Date/Time: May 15 2018 2:38PDictated by : ROD BRIONES MDThis examination was interpreted and the report reviewed and electronically signed by: ROD BRIONES MD on May 15 2018 2:50PM [id number] Normal [facility] PROGRESSon 05-12-2018 Protein mass conc HNO ID: [id number] thor: Elio Alanice: (none)Author Type: PhysicianType: Progress [...] questions or problems interimChrisdillan Chen DPM [facility] CNOVon 05-07-2018 CNOV Office Visit (LOORRM) Balwinder TORREZ ([id number]) 1960 [facility] Time Provider Department05/07/18 10:45 AM ELIO CHEN [...] Take 10 mg by mouth as needed* JGPQVPU-IVYROZDPXITFT-LVMBBTJ* Take 1 tablet by mouth every * [...] HTN (hypertension) [I10] Migraines [G43.909] Status:Closed by Interactive Convenience ElectronicsVibrant Living Senior Day Care CenterKETTY on 05/07/18 Normal [facility] PROGRESSon 05-07-2018 Protein mass conc HNO ID: [id number] thor: Elio Lazaor: (none)Author Type: PhysicianType: Progress NotesFiled: 05/07/2018 11:21 [...] or problems interimChristopher Bryan Chen DPM [facility] Protein mass conc HNO ID: [id number] thor: Jamia Tinajero (Rt) JtSer: (none)Author Type: TechnicianType: Progress NotesFiled: 05/07/2018 10:37 AMNote Text: Radiology Service Progress NotePATIENT NAME: Lesa TorrezMRN: [id number] OF SERVICE: May 07, 2018TIME: 10:36 AMPATIENT IDENTITY VERIFICATION COMPLETED USING TWO (2) METHODS: Patientconfirmed name verbally and Date of .PATIENT GENDER DATA: Female. status: : NoBreastfeeding status: NO.PATIENT RELEVANT IMPLANT DATA REVIEWED: Not ApplicableRADIOLOGY DEPARTMENT: General X-ray: Exam(s) Completed: Lower ExtremityX-Ray(s): Foot, Right:PERIPHERAL IV DATA: Not applicableSIGNED BY: Jamia Waters, RTJuly 2017 10:36 AM [facility] XR FOOT 3V AP/LAT/OBL RTon 0 05-07-2018 [...] other significant change.IMPRESSION:Normal postoperative appearances of the forefoot.Director Of Government Sales: [facility] HEALTH HOSPITALAkash Transcribe Date/Time: May 07 2018 10:41ADictated by : CHARITO KAN MDThis examination was interpreted and the report reviewed and electronically signed by: CHARITO KAN MD on May 07 2018 10:44AM [id number] [facility] CNOVon 04-15-2018 CNOV Office Visit (LOORRM) Balwinder TORREZ ([id number]) 1960 FDate Time Provider Department04/15/18 8:45 AM [...] 015 4 - HivesDate Reviewed: 04/15/2018Reviewed by: Ktety Robertson Clinical Tech - Fully AssessedReason for Visit: Post Op [174]Primary Visit Diagnosis:Hallux valgus with bunions of right foot [M20.11, M21.611] Other Visit Diagnoses:Hammer toe of right foot [M20.41] Contracted, joint, multiple sites [M24.50]Order(s):PARKING FOR HANDICAPPED [[id number]] Order #: [id number] as of 04/15/2018 Sig: PROMETHAZINE 25 MG [...] Take 10 mg by mouth as needed* QSWFXBN-CBUEKNKBGOZFT-JXYCAVW* Take 1 tablet by mouth every * [...] by ELIO CHEN DPM on 04/15/18 Normal [facility] PROGRESSon 04-15-2018 Protein mass conc HNO ID: [id number] thor: Elio Reidervice: (none)Author Type: PhysicianType: Progress [...] prescription dispensed upon requestChbennie Chen DPM [facility] ANES Ulices 04-06-2018 ANES POST HNO ID: [id number] thor: Vinnie Santizoice: AnesthesiologyAuthor Type: AnesthesiologistType: Anesthesia PostOpFiled: 04/06/2018 1:19 PMNote Text:POST ANESTHESIA EVALUATION NOTESERVICE DATE: 04/06/2018SERVICE TIME: 11:50 AMDOB: 1960Vitals: 04/06/1811Temp: 36.2 ?C (97.2 ?F) 36.2 ?C (97.2 ?F) 120 135 145BP: 174/80 172/91 174/96 179/81 867535 120 643990 135753Sykll: 67 67 63 65 104 234427 135 216296Djkt: 16 16 16 16 706243 030500 148418 205351YjX9: 97% 100% 99% 98%Validated Vital Signs: YesPOST [...] 06, 2018 : 1:19 PM PAGER/CONTACT #: [facility] ANES PREOPon 04-06-2018 ANES PREOP HNO ID: [id number] thor: Vinnie Santizoice: AnesthesiologyAuthor Type: AnesthesiologistType: Anesthesia [...] as needed. Mayrepeat in 2 hours if gicxhoLyrwxdu-Obzlmaggnjviv-Eazmn ine (EXCEDRIN MIGRAINE) 250-250-65 mg pertablet Take [...] April 06, 2018 : 7:15 AM CSN: [id number] [facility] BRIEF OP NOTon 04-06-2018 BRIEF OP NOT HNO ID: [id number] thor: Laron (Pato) HemaService: PodiatryAuthor Type: ResidentType: Brief Op NoteFiled: 04/06/2018 11:09 AMNote Text:BRIEF OP NOTELOG ID: [id number]/Procedure Date: 04/06/2018Incision/Procedure Start Time: 7:50 AMIncision Close/Procedure End Time: 10:54 AMSurgeon(s)/Proceduralist(s) and Executive Team Leader(s):Surgeon(s) and Role: * Elio Garrido DPM DNC5Wdlxnscrp(s): 1st MPJ fusion, PIPJ fusion 2,3,4, MPJ [...] 06, 2018 : 11:07 AM PAGER/CONTACT #: [facility] NURSING PROGon 04-06-2018 Protein mass conc HNO ID: [id number] Author: Zoila Zavala (Rn) OSMAR Hamilton Service: (none) Author Type: Registered Nurse Type: Nursing Progress Note Filed: 04/06/2018 12:02 PM Note Text: PT'S FRIEND HERE. PT GETTING DRESSED. [facility] Protein mass conc HNO ID: [id number] thor: Zoila Zavala (Rn) JERRI Hamiltonervice: (none)Author Type: Registered NurseType: Nursing Progress NoteFiled: 04/06/2018 11:50 AMNote Text:TOOK OVER CARE OF PATIENT. POST OP SHOE FITTED AND APPLIED. PT AWAKE.DENIES ANY COMPLAINTS. WAITING FOR PATIENT'S FRIEND TO ARRIVE TO TAKE HERHOME. [facility] Protein mass conc HNO ID: [id number] Author: Jailene Kendall) OSMAR Perez Service: (none) Author Type: Registered Nurse Type: Nursing Progress Note Filed: 04/06/2018 11:40 AM Note Text: Received report from elena cifuentes at 1125 [facility] Protein mass conc HNO ID: [id number] thor: Elena Tinajero (Osmar) Lissy, RNService: (none)Author Type: Registered NurseType: Nursing Progress NoteFiled: 04/06/2018 11:23 AMNote Text: Nursing Progress NotePatient Name: Lesa JacksonseattleMRN: [id number] Location: C351-Urjkej/W222-Qbdeca Daily Note:Handoff report given to Jailene Perez RN. Pt. Restingcomfortably. Painfree. Dr. Chen at bedside. vss. DSD intact toright foot, elevated on pillow with ice pack.This note was completed by: Elena Cifuentes RN [facility] OPERATIVE NOon 04-06-2018 OPERATIVE NO HNO ID: [id number] thor: Elio Reidervice: PodiatryAuthor Type: PhysicianType: Operative ReportFiled: 06/01/2018 3:13 PMNote Text:[facility] [address] [place]OPERATIVE REPORTNAME: LESA TORREZ [facility] #: [id number]: 04/06/2018 AGE: 57SURGEON 1: RADHA Herndon 2:SMALL WIND ENERGY INSTALLER 1: Carl Garrido D.P.M.SMALL WIND ENERGY INSTALLER 2:OPERATION: 1. First MPJ arthrodesis, right foot (CPT 66001). 2. Weilshortening osteotomy, second metatarsal, right foot (CPT 59482). 3.Capsulotomy second, third, and fourth MPJ, right foot (CPT 55475). 4.Hammertoe repair with pinning digits 2, 3, and 4, right foot (CPT 50610).ANESTHESIA: MAC with a local field block utilizing [...] INDICATIONS: This 57-year-old female was last seen [facility] on January 06, 2018, for a final [...] medial aspect of the first MPJ to signal worker helper inarthrodesis. The first MPJ capsule was [...] was thenreapproximated utilizing 4-0 Polysorb in an smco-esi-xlah type fashion.The skin was then reapproximated utilizing [...] was then reapproximated utilizing 4-0Polysorb in an miia-gbm-dkuq fashion. The skin was then reapproximatedutilizing 4-0 [...] x 4s, andKerlix followed by a 4-inch Felix wrap. The right pneumatic ankletourniquet was then [...] operating room today under my direct supervision ewqghhmu-mf-oiep.START TIME: 07:50.END TIME: 10:50.HEMOSTASIS: Right pneumatic ankle tourniquet at 250 mmHg.MATERIALS: Two SBi 3.0-mm cannulated screws, one VariAx plate and four2.7-mm locking screws, two 0.062 K-wires and one 0.054 K-wire, 3-0 and4-0 Polysorb, and 4- 0 nylon suture.PROPHYLAXIS: 2 g of Ancef IV piggyback preop.ESTIMATED BLOOD LOSS: Minimal.DRAINS: None.SPECIMENS: None.COMPLICATIONS: None.CONDITION: Satisfactory.Elio Chen [facility] TULSAWH:[id number] #: [id number]: 04/06/2018 10:29:16 cc: [facility] PROGRESSon 04-06-2018 Protein mass conc HNO ID: [id number] thor: Laron GarridoService: PodiatryAuthor Type: ResidentType: Progress [...] April 06, 2018 : 7:09 AM Normal [facility] PT EDon 04-06-2018 PT ED HNO ID: [id number] thor: Jailene Kendall) JERRI Perezervice: (none)Author Type: [...] By: Jailene Perez RN In Department: AMBULATORYSURGERY [facility] PT ED HNO ID: [id number] thor: Pastora SalasRn) JERRI Hineservice: (none)Author Type: Registered NurseType: Patient EducationFiled: 04/06/2018 7:29 AMNote Text:PRE OP LEARNING ASSESSMENTPROCEDURE/SURGERY: right footREADINESS TO LEARNCOGNITIVE ABILITY: Alert and orientedMOTIVATION TO LEARN: EagerFAMILY SUPPORT: High - Very involved in pt carePATIENT LEARNS BEST BY: Multiple MethodsFACTORS AFFECTING LEARNING: NonePHYSICAL LIMITATIONS AFFECTING LEARNING: NoneElectronically Signed By: Pastora Hines RN [facility] 03-27-2018 Protein mass conc HNO ID: [id number] thor: Katharine Kendall) JERRI Winchesterervice: (none)Author Type: [...] Check:COMPLETEDKatharine Winchester RNMay 2017 10:57 AM [facility] HISTORY PHYSICALon HISTORY PHYSICAL HNO ID: [id number] thor: Kady (Manufacturing Engineering Technician) Loriervice: (none)Author Type: Nurse PractitionerType: HANDPFiled: 03/26/2018 2:58 PMNote Text:HISTORY AND PHYSICAL EXAMINATIONSERVICE DATE: 03/26/2018SERVICE TIME: 2:34 PMPRIMARY CARE PHYSICIAN: ALVAREZ Gonzalez FOR VISIT:Lesa Torrez is a 57 year old female who is scheduled for PACC at [facility] of Dr. Elio Chen for consultation. My [...] needed. Mayrepeat in 2 hours if needed AkxMbawsqb-Zuwjlzisrujjw-Kqhvbxig (EXCEDRIN MIGRAINE) 250-250-65 mg pertablet Take 1 [...] 2018 : 2:34 PM PAGER/CONTACT #: [facility] HOSPon 01-14-2018 HOSP Patient:Darryn Torrez ElizabetMRN: Height:5' 0 (1.524 m)Weight:175 lb (79.379 kg)Outpatient Medications as of 04/06/18:tiZANidine (ZANAFLEX) 4 mg tabletbisoprolol-hydrochlorothiaz haroldo (ZIAC) 10-6.25 mg per tabletcalcium, elemental, tabmultivitamin (DAILY MULTIPLE) tabletloratadine (CLARITIN) 10 mg tabletpolyethylene glycol 3350 (MIRALAX) 17 gram packetrizatriptan (MAXALT) 10 mg zzqjxpHcbnshq-Yhzxadvaxenbp-Pugrt ine (EXCEDRIN MIGRAINE) 250-250-65 mg per tabletnaproxen [...] notes entered within the past 30 days [facility] CNOVon 01-06-2018 CNOV Office Visit (LOORRM) Balwinder TORREZ ([id number]) 1960 FDate Time Provider Department01/06/18 3:45 PM ELIO CHEN LOORRTanvi During your visit today, we recorded the following information about you:Elio Chen DPM 01/06/2018 10:27 PM Unsigned Legal Collector [facility] [address] [place] [address] CLINIC NOTE Department of Orthopaedics - William Chen D.P.M.NAME: LESA TORREZ NO.: [id number] OF SERVICE: 01/06/2018SUBJECTIVE: The patient is seen [...] Iadvised we can perform it at the [facility] under MAC with a local fieldblock. We [...] By: Elio Chen D.P.M.Date Dictated: 01/06/2018Date Typed: [facility] 01/06/2018[facility]# [id number] Lucas Thurston 01/14/2018 9:12 AM SignedAddended by: LAWRENCE PHELPS on: 01/14/2018 09:12 AM Modules accepted: OrdersTranscription:Transcribed Clinic Note (mau) ID: [id number]: ELIO CHEN * * * This document has not been signed * * * * * * DRAFT COPY. THIS DOCUMENT IS NOT AVAILABLE FOR PATIENT CARE * * *Document text: [facility] [address] [place], [place] [address] CLINIC NOTE Department of Orthopaedics - [place] Elio Chen D.P.M.NAME: LESA TORREZ NO.: [id number] OF SERVICE: 01/06/2018SUBJECTIVE: The patient is seen [...] advised we can perform it at the [facility] under MAC witha local field block. We [...] Jake Pena.P.M.Date Dictated: 01/06/2018Date Typed: girish 01/06/2018ELIZABETB# [id number] document [id number] only ------Referring Provider: SELF [200]Allergies As of Date: 01/06/2018 Noted Allergy ReactionBACTRIM (SULFAMETHOXAZOLE-TRIMETH* 015 4 - HivesDate Reviewed: 01/06/2018Reviewed by: Ketty Robertson [employer] - Fully AssessedReason for Visit: Pain (foot) [760]Primary Visit Diagnosis:Hallux valgus with bunions of right foot [M20.11, M21.611] Other Visit Diagnoses:Hammer toe of right foot [M20.41] Contracted, joint, multiple sites [M24.50] Metatarsal deformity, right [M21.961]Order(s):SURGICAL REQUEST - ELECTIVE [[id number]] Order #: [id number]: 1Prescriptions as of 01/06/2018 Sig: RIZATRIPTAN 10 [...] Take 10 mg by mouth as needed* GSMTOJN-LNDNVSDUIZJGH-LTNQDFO* Take 1 tablet by mouth every * NAPROXEN SODIUM 220 MG TABLET Take 220 mg by mouth as neede*Medication notes this encounter RIZATRIPTAN 10 MG DISINTEGRATING TABLET >> Ketty Robertson [employer] 01/06/2018 3:56 PM >> KETTY JIMENEZ Jan 06, 2018 3:56 PM Received from: External Pharmacy BISOPROLOL 10 MG-HYDROCHLOROTHIAZIDE 6.25 MG TABLET >> Ketty Robertson [employer] 01/06/2018 3:56 PM >> BRIAN REYNOLDS HRsoftKETTY Jan 06, 2018 3:56 PM Received from: External PharmacyProblem List As Of Date 01/06/2018 Noted Resolved Hallux abductovalgus with bunions [M20.10, M21.*INVALID FOR* Jaden [M20.40] INVALID FOR* Status:Closed by ELIO CHEN DPM on 01/06/18 Normal [facility] PROGRESSon 01-06-2018 Protein mass conc HNO ID: [id number] thor: Jaqueline Ramos (Rt)ervice: (none)Author Type: TechnicianType: Progress NotesFiled: 01/06/2018 3:29 PMNote Text: Radiology Service Progress NotePATIENT NAME: Lesa TorrezMRN: [id number] OF SERVICE: January 06, 2018TIME: 3:29 PMPATIENT IDENTITY VERIFICATION COMPLETED USING TWO (2) METHODS: Patientconfirmed name verbally and Date of .PATIENT GENDER DATA: Female. status: : NoBreastfeeding status: NO.PATIENT RELEVANT IMPLANT DATA REVIEWED: YesRADIOLOGY DEPARTMENT: General X-ray: Exam(s) Completed: Lower ExtremityX-Ray(s): Foot, Right and Wt. Bearing:PERIPHERAL IV DATA: Not applicableSIGNED BY: Jaqueline Spaulding [facility] 2017 3:29 PM Normal [facility] XR FOOT 3V AP/LAT/OBL RTon 0 [...] abnormality.IMPRESSION:Diffuse deformities of the second through small toes.Director Of Government Sales: PSCB Transcribe Date/Time: Jan 06 2018 3:32PDictated by : CHARITO KAN MDThis examination was interpreted and the report reviewed and electronically signed by: CHARITO KAN MD on Jan 06 2018 3:34PM [id number] [facility] Encounters Encounter Date Encounter Type Care Provider Facility Start: 02-03-2024 End: 02-04-2024 ambulatory Clarisa L Brian Facility:[facility] Start: 10-22-2023 End: 10-23-2023 ambulatory Clarisa L Brian Facility:[facility] Start: 03-28-2023 ambulatory Clarisa Brian Facility:[facility] Start: 11-04-2022 End: 11-04-[address] DELON REAL Facility:[facility] Start: 08-28-2022 End: 10-12-[address] DELON REAL Facility:[facility] Start: 07-09-2022 End: 07-10-[address] DELON REAL Facility:[facility] Start: 06-19-2022 Encounter for genera l adult medical examination without abnormal findings DR DELON REAL [facility] Start: 06-18-2022 End: 06-19-[address] DELON REAL Facility:[facility] Start: 06-18-2022 End: 06-19-2022 Encounter for general adult medical examination without abnormal findings DR DELON REAL Facility:[facility] Start: 03-08-2022 End: 03-09-[address] DELON REAL Facility:[facility] Start: 11-22-2021 End: 11-23-[address] DELON REAL Facility:[facility] Start: 06-03-2018 End: 06-03-2018 Patient encounter ELIO CHEN [facility] Start: 05-15-2018 End: 05-19-2018 Patient encounter ELIO CHEN [facility] Start: 05-07-2018 End: 05-11-2018 Patient encounter ELIO CHEN [facility] Start: 05-07-2018 End: 05-07-2018 Patient encounter ELIO CHEN [facility] Start: 04-15-2018 End: 04-15-2018 Patient encounter ELIO CHEN [facility] Start: 04-06-2018 Patient encounter ELIO DEGROOT [facility] Start: 03-26-2018 End: 03-26-2018 Patient encounter ELIO CHEN [facility] Start: 01-06-2018 End: 01-06-2018 Patient encounter ELIO CHEN [facility] Payers Date Payer Category Payer Unknown [id number] 1961 Unknown [id number] 1960 Unknown [id number] 2.16.84 [id number] 1960 Unknown [id number] 2.16.84 [id number] 1960 Unknown [id number] 2.16.84 [id number] 1960 Unknown [id number] 2.16.84 [id number] 1960 Unknown [id number] 2.16.84 [id number] 1960 Unknown [id number] 1960 Unknown [id number] 1960 Unknown [id number] Summary Purpose Family History No Family History Records FoundNo Family History Records FoundNo Family History Records Found Advance Directives No Advanced Directives Records FoundNo Advanced Directives Records FoundNo Advanced Directives Records Found Additional Source Comments INFORMATION SOURCE (unrecogn ized section and content) DATE CREATED AUTHOR 06/17/2018 [facility] DATE CREATED AUTHOR AUTHOR'S ORGANIZ ATION 11/04/2022 Eleni lackey DATE CREATED AUTHOR AUTHOR'S ORGANIZ ATION 03/27/2024 [facility] FOR RECORDS PERTAINING TO PATIENTS WHO ARE [...] BE BASED ON THE PRIMARY CLINICAL RECORDS. [facility] [employer] [facility]. provides no warranty or guarantee of the accuracy or completeness of information in this document.
[2024-05-20 10:31] LABS: Glucometer 94 mg/dL (74-106)
[2024-05-20] MEDS: LACTATED RINGER'S SOLUTION 1,000 ML 50 ML IV (10:46)
[2024-05-20] MEDS: CEFAZOLIN SODIUM/DEXTROSE,ISO 2 GM/50 ML PIGGYBACK IV (11:16)
[2024-05-20] MEDS: BUPIVACAINE HCL 0.5% PF 50 MG/10 ML VIAL INJ (11:39)
[2024-05-20] MEDS: LIDOCAINE HCL 1% 100 MG/10 ML MDV INJ (11:39)
--- NOTE | 2024-05-20 12:17 | XR_ITS ---
The [address] [address] Patient Name: MEGHA CACERES MRN: [id number] date: 1960 Sex: F Assigned Patient Location: [facility] Current Patient Location: Accession/Order Number: [id number] Exam Date: 05/20/2024 12:45 Report Date: 05/21/2024 04:48 At the request of: KENNETH CRUZ Procedure: XR foot RT min 3V PROCEDURE: XR foot RT min 3V HISTORY: post op xr pacu COMPARISON: XR foot right 04/27/2024 FINDINGS: BONES:Prior mechanical fusion of the first metatarsal phalangeal joint via dorsal plate and screws and prior osteotomy and repair of second metatarsal head; no evidence of hardware fracture or loosening. Interval resection of head of 5th metatarsal. SOFT TISSUES:No visible soft tissue swelling. EFFUSION:None visible. OTHER: Negative. XR/XR foot RT min 3V IMPRESSION: 1. Interval resection of 5th metatarsal head. 2. Otherwise stable surgical changes without evidence of hardware failure or change in alignment. Electronically authenticated by: SKYLAR SHEEHAN Date: 05/21/2024 04:48
[2024-05-20 12:32] LABS: Glucometer 74 mg/dL (74-106)
--- NOTE | 2024-05-20 12:43 | P.ORON_ITS ---
Brief Operative Note Date of procedure: 05/20/24 Pre-op diagnosis general: Right tailor's bunion Post-op diagnosis: same as pre-op Procedure: Procedure performed: Right fifth metatarsal head resection Indications for procedure: Patient is a 64-year-old female who previously underwent right forefoot reconstruction including resection of the lateral eminence of the fifth metatarsal for a tailor's bunion. Unfortunately the prominence reoccurred which made shoewear difficult and limited activity. I discussed the potential risks and benefits of resecting the fifth metatarsal head which could lead to secondary deformity of the 5th toe. Given that nearly half of the fifth metatarsal head had been previously removed from prior tailor's bunionectomy I thought this to be the best alternative to amputation. After discussing potential risks and benefits patient wished to proceed with the above procedure Intraoperative findings: Clinically there is a large prominence of the lateral aspect of the distal fifth metatarsal with only mild adductovarus deformity of the fifth toe which was reducible. The second, third, & fourth toes had reducible varus malalignment while the great toe was rectus and stable. Bone quality was within normal limits given patient's age and gender and there was no signs of infection. Procedure in detail: Patient was identified preoperative holding by myself which time correct side and site were marked and consent was obtained. Patient was brought back to the operating theater and preoperative antibiotics were started. Patient was placed on 2 the operative table in a supine position with an ankle tourniquet. The right foot was then prepped and draped in usual sterile fashion. Local anesthesia as a standard ray block was provided using 10 cc of 1% lidocaine plain and 0.5% Marcaine plain. Formal timeout was performed and the foot was exsanguinated and the tourniquet inflated. Linear incision was placed over the fifth metatarsal head extending to the proximal phalanx. Combination of sharp and blunt dissection gained access to the fifth metatarsal phalangeal joint capsulotomy was performed. All soft tissues were released around the fifth metatarsal head. A sagittal saw was used to perform an osteotomy proximal to the neck of the fifth metatarsal. The distal segment including the head neck was then excised and passed the back table. Surgical site was irrigated with copious saline and the incision was c losed in layers. Tourniquet was deflated and a dry sterile dressing and postop shoe was applied. Postoperative plan: Discharge home under family's care Weightbearing as tolerated in surgical shoe for approximately 3 weeks Prescriptions were sent to her pharmacy. Patient will follow-up in 3 weeks for suture removal but is to call the office if there is any issue prior to that time Anesthesia: General-LMA Surgeon: Zander Gonzalez [employer] Machine Operator: Karthikeyan Funk Estimated blood loss (mL): 10 Condition: stable Disposition: PACU
== END 2024-05-20 13:26 | disposition home or self-care (01) ==
PROVIDERS: PCP Nurse Practitioner; Visit Provider Podiatrist Foot & Ankle Surgery
PROC: (CPT 1480; principal; 2024-05-20 11:10)
DX: M21.621 Bunionette of right foot (principal); Z90.49 Acquired absence of other specified parts of digestive tract; I10 Essential (primary) hypertension; M19.90 Unspecified osteoarthritis, unspecified site
CPT/HCPCS: 28110; 36415; 73630; 82948; J0131; J0665; J0690; J1100; J1885; J2250; J2704; J3010

== ENCOUNTER 2025-04-01 07:18 | Outpatient (OUT) | payer MEDICARE, SELFPAY ==
--- OUTSIDE RECORDS SUMMARY | 2025-04-01 07:21 | XMS_ITS | CCD ---
Author Organization [facility] Care Team Providers Care Cash Register Operator Name Role Phone GUSTAVO, ZOFIAOPHER W Unavailable [...] le GUSTAVO, CHRISTOPHER W Unavailable Unavailab le ADDIE, DR DELON Landry Admitting Unavailable ADDIE, DR DELON Landry Attending Unavailable ADDIE, DR DELON Landry Consulting Unavailable ADDIE, DR DELON Landry Primary Care Unavailable ADDIE, DR DELON Landry Admitting Unavailable ADDIE, DR DELON Landry Attending Unavailable ADDIE, DR DELON Landry Consulting Unavailable ADDIE, DR DELON Landry Primary Care Unavailable ADDIE, DR DELON Landry Primary Care Unavailable AYANA GONZALEZ Attending Unavailable AYDEN, DR ELIZABETH Castro Consulting Unavailable AYANA GONZALEZ Admitting Unavailable AYANA GONZALEZ Consulting Unavailable ADIDE, DR DELON Landry Primary Care Unavailable LAQUITA [...] Unavailable SISSY, DR SKYLAR Bishop Consulting Unavailable NGUYEN Gonzalez Attending Provider Ayana Gonzalez Attending Unavailable Ayana Gonzalez Admitting Unavailable Brian, Clarisa Zavala Primary Care Physician Brian, Clarisa Zavala Attending Unavailable Brian, Clarisa Zavala Admitting Unavailable Brian, Clarisa L Attending Unavailable Brian, Clarisa L Attending Unavailable Brian, Clarisa L Attending Unavailable Brian, Clarisa L Attending Unavailable Brian, Clarisa L Attending Unavailable Brian, Clarisa L Admitting Unavailable Brian, Clarisa L Attending Unavailable Brian, Clarisa L Attending Unavailable Brian, Clarisa L Attending Unavailable Allergies Allergy Classification Reported Allergen(s) Allergy Type Date of Onset Reaction(s) Facility (1 source) sulfamethoxazole / trimethoprim; Translations: [SULFAMETHOXAZOLE-TR IMETHOPRIM] Drug Allergy 5 [facility] Repository (2 sources) Sulfamethoxazole / Trimethoprim; Translations: [Bactrim] Drug Allergy 3 [facility] Repository (1 source) Sulfamethoxazole / Trimethoprim; Translations: [sulfamethoxazole-tr imethoprim] Drug Allergy Unknown (qualifier value) [facility] [place] Problems Active Problems Problem Classification Problem Date Documented Date Episodic/Chronic Acquired foot deformities (2 sources) Hallux valgus (acquired), right foot; Translations: [Other hammer toe(s) (acquired), right foot] Onset: 01-14-2018 Chronic Allergic reactions (1 source) Contact dermatitis due to poison jhon 03-12-2023 Episodic Conditions associated with dizziness or vertigo (1 source) Vertigo 03-12-2023 Episodic Deficiency and other anemia (1 source) Anemia 03-12-2023 Episodic Essential hypertension (1 source) Hypertensive disorder 10-22-2023 Chronic Headache; including migraine (1 source) Migraine 03-12-2023 Chronic Mycoses (1 source) 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 Other acquired deformities (1 source) Contracture, unspecified [...] Translations: [OTHER MUSCLE SPASM] Onset: 08-28-2022 Episodic Other lower respiratory disease (1 source) Cough 01-06-2025 Episodic Other nutritional; endocrine; and metabolic disorders (1 source) Body mass index 30+ - obesity 11-24-2024 Chronic Other nutritional; endocrine; and metabolic disorders (1 source) Obesity 03-12-2023 Chronic Other nutritional; endocrine; and metabolic disorders (1 source) Weight increased 11-24-2024 Episodic Other skin disorders (1 source) Actinic keratosis 03-12-2023 Episodic Other skin disorders (1 source) Folliculitis 02-03-2024 Episodic Other upper respiratory disease (1 source) Allergic rhinitis 03-12-2023 Chronic Other upper respiratory disease (1 source) Congestion of nasal sinus 01-06-2025 Episodic Other upper respiratory infections (1 source) Sinusitis 10-22-2023 Chronic Otitis media and related conditions (2 sources) Finding of fluid behind tympanic membrane; Translations: [Otitis media of left ear] 11-24-2024 Episodic Pleurisy; pneumothorax; pulmonary collapse (1 source) Pleurisy 03-12-2023 Episodic Spondylosis; intervertebral disc disorders; other back problems (1 source) Cervical spondylosis 03-12-2023 Chronic Spondylosis; intervertebral disc disorders; other back problems (1 source) Lumbar radiculopathy 03-12-2023 Episodic Unclassified (1 source) Pain, unspecified; Translations: [Pain, unspecified] Onset: 01-06-2018 Unclassified (1 source) Unknown / UNK(Unknown) Onset: 03-26-2018 Unclassified (3 sources) CONTACT W/AND (SUSP) EXPOS COVID-19; Translations: [CONTACT W/AND (SUSP) EXPOS COVID-19] Onset: 03-11-2022 Unclassified (1 source) Non-smoker 03-13-2023 Unclassified (1 source) Patient encounter status 03-04-2025 Past or Other Problems Problem Classification Problem [...] Test Name Value Interpretation Reference Range Facility .Interpretation:on HCV Ab IA Ql Comment Invalid Interpretation Code [facility] Comment on above: Result Comment: Not infected with HCV unless early or acute infection is suspected (which may be delayed in an immunocompromised individual), or other evidence exists to indicate HCV infection. Performed at: [facility] [id number] PhD Alex Escalante Performed By: #### 2 [id number] #### [facility] [address] [place] [address] HCV Antibody RFX to Quant PC Richy 03-24-2025 HCV Ab IA Ql Non-Reactive Invalid Interpretation Code Non Reactive [facility] Comment on above: Result Comment: Perf ormed at: [facility] [id number] PhD Alex Escalante Performed By: #### 2 [id number] #### [facility] [address] [place] [address] Reminderson 03-23-2025 Reminders Reminders From: Clarisa Lane To: [facility] - Clinical; Sent: 03/23/2025 08:19:20 EDT Show up: 03/23/2025 08:19:00 EDT Subject: Ambulatory Reminder Due Date/Time: 03/24/2025 08:18:00 EDT kidney function labs are a little off. I would like to repeat those in 3 months. she can schedule a nurse visit for that. Results: Date Result Name Ind Value Ref Range 03/22/2025 8:21 Glucose Lvl 88 mg/dL (55 - 199) 03/22/2025 8:21 BUN (H) 26 mg/dL (5 - 21) 03/22/2025 8:21 Creatinine 1.2 mg/dL (0.5 - 1.3) 03/22/2025 8:21 eGFR (L) 50 mL/min/1.73 m2 (>=59 - ) 03/22/2025 8:21 BUN/Creat Ratio (H) 22 (10 - 20) 03/22/2025 8:21 Sodium Lvl 141 mmol/L (135 - 145) 03/22/2025 8:21 Potassium Lvl 3.9 mmol/L (3.5 - 5.3) 03/22/2025 8:21 Chloride 104 mmol/L (101 - 111) 03/22/2025 8:21 CO2 31 mmol/L (21 - 31) 03/22/2025 8:21 AGAP 10 mEq/L (6 - 16) 03/22/2025 8:21 Calcium Lvl 10.2 mg/dL (8.9 - 11.1) 03/22/2025 8:21 Alk Phos 51 Int._Unit/L (21 - 98) 03/22/2025 8:21 ALT 14 Int._Unit/L (6 - 46) 03/22/2025 8:21 AST 19 Int._Unit/L (5 - 43) 03/22/2025 8:21 Total Protein 6.8 gm/dL (6.0 - 7.8) 03/22/2025 8:21 Albumin Lvl 4.2 gm/dL (3.3 - 5.0) 03/22/2025 8:21 Globulin 2.6 gm/dL (1.4 - 4.0) 03/22/2025 8:21 A/G Ratio 1.6 (1.1 - 2.2) 03/22/2025 8:21 Bili Total 0.4 mg/dL (0.0 - 1.1) 03/22/2025 8:21 Chol 181 mg/dL (120 - 200) 03/22/2025 8:21 Trig 113 mg/dL ( - <=149) 03/22/2025 8:21 HDL 51 mg/dL 03/22/2025 8:21 LDL Direct 106 mg/dL ( - <=129) 03/22/2025 8:21 VLDL 23 mg/dL (7 - 40) 03/22/2025 8:22 U Microalb 1.1 mg/dL (0.0 - 1.9) 03/22/2025 8:22 U Creatinine 142.3 mg/dL 03/22/2025 8:22 Microalb/Cr Ratio 7.7 mg/gm Cr (0.0 - 30.0) pt notified she states she will call back to set up appt. Normal [facility] CHEMISTRYOrdered By: SYSTEM SYSTEM on 03-22-2025 Albumin DL <= 20 mg/L (U) [Mass/Vol] 1.1 mg/dL Normal 0.0 - 1.9 mg/dL Remisol Chem Albumin/Creatinin e DL <= 20 mg/L (U) [Mass ratio] 7.7 mg/gm Cr Normal 0.0 - 30.0 mg/gm Cr Remisol Chem Comment on above: Interpretive Data: 3 0-300 mg/g Cr indicates an increased risk for diabetic nephropathy. >300 mg/g Cr is consistent with clinical nephropathy. U Creatinine 142.3 mg/dL Invalid Interpretation Code Remisol Chem Albumin [Mass/Vol] 4.2 g/dL Normal 3.3 - 5.0 gm/dL Remisol Chem Albumin/Globulin [Mass ratio] 1.6 {ratio} Normal 1.1 - 2.2 Remisol Chem ALP [Catalytic activity/Vol] 51 [iU]/d Normal 21 - 98 Int._Unit/ L Remisol Chem ALT No additional P-5'-P [Catalytic activity/Vol] 14 [iU]/d Normal 6 - 46 Int._Unit/ L Remisol Chem Anion gap [Moles/Vol] 10 mmol/L Normal 6 - 16 mEq/L Remisol Chem AST [Catalytic activity/Vol] 19 [iU]/d Normal 5 - 43 Int._Unit/ L Remisol Chem Bilirubin [Mass/Vol] 0.4 mg/dL Normal 0.0 - 1.1 mg/dL [facility] Chem Calcium [Mass/Vol] 10.2 mg/dL Normal 8.9 - 11.1 mg/dL [facility] Chloride [Moles/Vol] 104 mmol/L Normal 101 - 111 mmol/L [facility] Cholesterol [Mass/Vol] 181 mg/dL Normal 120 - 200 mg/dL [facility] Cholesterol in HDL [Mass/Vol] 51 mg/dL Invalid Interpretation Code [facility] Comment on above: Result Comment: '>= 60 LOW RISK' '<= 40 HIGH RISK' Cholesterol in LDL [Mass/Vol] 106 mg/dL Normal <=129mg/dL Rem[facility] Cholesterol in VLDL [Mass/Vol] 23 mg/dL Normal 7 - 40 mg/dL [facility] CO2 [Moles/Vol] 31 mmol/L Normal 21 - 31 mmol/L [facility] Chem Creatinine [Mass/Vol] 1.2 mg/dL Normal 0.5 - 1.3 mg/dL Remisol Chem eGFR 50 mL/min/1.73 m2 Low >=59mL/min /1.73 m2 [facility] Globulin (S) [Mass/Vol] 2.6 g/dL Normal 1.4 - 4.0 gm/dL [facility] Glucose [Mass/Vol] 88 mg/dL Normal 55 - 199 mg/dL Rem[facility] Chem Potassium [Moles/Vol] 3.9 mmol/L Normal 3.5 - 5.3 mmol/L Remisol Chem Protein [Mass/Vol] 6.8 g/dL Normal 6.0 - 7.8 gm/dL [facility] Chem Sodium [Moles/Vol] 141 mmol/L Normal 135 - 145 mmol/L [facility] Triglyceride [Mass/Vol] 113 mg/dL Normal <=149mg/dL Rem[facility] Urea nitrogen [Mass/Vol] 26 mg/dL High 5 - 21 mg/dL Remisol Chem Urea nitrogen/Creatini ne [Mass ratio] 22 mg/mg High 10 - 20 Remisol Chem CMPon 03-22-2025 Albumin [Mass/Vol] 4.2 g/dL Normal 3.3-5.0 [facility] Comment on above: Performed By: #### 2 [id number] #### [facility] [address] [place] [address] Albumin/Globulin (S) [Mass conc ratio] 1.6 Normal 1.1-2.2 [facility] Comment on above: Performed By: #### 2 [id number] #### [facility] [address] [place] [address] ALP [Catalytic activity/Vol] 51 Int._Unit/L Normal 21-98 [facility] Comment on above: Performed By: #### 2 [id number] #### [facility] [address] [place] [address] ALT No additional P-5'-P [Catalytic activity/Vol] 14 Int._Unit/L Normal 6-46 [facility] Comment on above: Performed By: #### 2 [id number] #### [facility] [address] [place] [address] Anion gap [Moles/Vol] 10 mmol/L Normal 6-16 [facility] Comment on above: Performed By: #### 2 [id number] #### [facility] [address] [place] [address] AST [Catalytic activity/Vol] 19 Int._Unit/L Normal 5-43 [facility] Comment on above: Performed By: #### 2 [id number] #### [facility] [address] [place] [address] Bilirubin [Mass/Vol] 0.4 mg/dL Normal 0.0-1.1 [facility] Comment on above: Performed By: #### 2 [id number] #### [facility] [address] [place] [address] Calcium [Mass/Vol] 10.2 mg/dL Normal 8.9-11.1 [facility] Comment on above: Performed By: #### 2 [id number] #### [facility] [address] [place] [address] Chloride [Moles/Vol] 104 mmol/L Normal 101-111 [facility] Comment on above: Performed By: #### 2 [id number] #### [facility] [address] [place] [address] CO2 [Moles/Vol] 31 mmol/L Normal 21-31 [facility] Comment on above: Performed By: #### 2 [id number] #### [facility] [address] [place] [address] Creatinine [Mass/Vol] 1.2 mg/dL Normal 0.5-1.3 [facility] Comment on above: Performed By: #### 2 [id number] #### [facility] [address] [place] [address] Globulin (S) [Mass/Vol] 2.6 g/dL Normal 1.4-4.0 [facility] Comment on above: Performed By: #### 2 [id number] #### [facility] [address] [place] [address] Glucose [Mass/Vol] 88 mg/dL Normal 55-199 [facility] Comment on above: Performed By: #### 2 [id number] #### [facility] [address] [place] [address] Potassium [Moles/Vol] 3.9 mmol/L Normal 3.5-5.3 [facility] Comment on above: Performed By: #### 2 [id number] #### [facility] [address] [place] [address] Protein [Mass/Vol] 6.8 g/dL Normal 6.0-7.8 [facility] Comment on above: Performed By: #### 2 [id number] #### [facility] [address] [place] [address] Sodium [Moles/Vol] 141 mmol/L Normal 135-145 [facility] Comment on above: Performed By: #### 2 [id number] #### [facility] [address] [place] [address] Urea nitrogen [Mass/Vol] 26 mg/dL High 5-21 [facility] Comment on above: Performed By: #### 2 [id number] #### [facility] [address] [place] [address] Urea nitrogen/Creatini ne [Mass ratio] 22 No Units High -20 [facility] Comment on above: Performed By: #### 2 [id number] #### [facility] [address] [place] [address] Lipid Panelon 03-22-2025 Cholesterol [Mass/Vol] 181 mg/dL Normal 120-200 [facility] Comment on above: Performed By: #### 2 [id number] #### [facility] [address] [place] [address] Cholesterol in HDL [Mass/Vol] 51 mg/dL Invalid Interpretation Code [facility] Comment on above: Result Comment: '>= 60 LOW RISK' '<= 40 HIGH RISK' Performed By: #### 2 [id number] #### [facility] [address] [place] [address] Cholesterol in LDL [Mass/Vol] 106 mg/dL Normal <=129 [facility] Comment on above: Performed By: #### 2 [id number] #### [facility] [address] [place] [address] Cholesterol in VLDL [Mass/Vol] 23 mg/dL Normal 7-40 [facility] Comment on above: Performed By: #### 2 [id number] #### [facility] [address] [place] [address] Triglyceride [Mass/Vol] 113 mg/dL Normal <=149 [facility] Comment on above: Performed By: #### 2 [id number] #### [facility] [address] [place] [address] U MA/Cr Ratioon 03-22-2025 Albumin DL <= 20 mg/L (U) [Mass/Vol] 1.1 mg/dL Normal 0.0-1.9 [facility] Comment on above: Performed By: #### 1 [id number] #### [facility] [address] [place] [address] Albumin/Creatinin e DL <= 20 mg/L (U) [Mass ratio] 7.7 mg/gm Cr Normal .0-30.0 [facility] Comment on above: Result Comment: 30-3 00 mg/g Cr indicates an increased risk for diabetic nephropathy. >300 mg/g Cr is consistent with clinical nephropathy. Performed By: #### 1 [id number] #### [facility] [address] [place] [address] U Creatinine 142.3 mg/dL Invalid Interpretation Code [facility] Comment on above: Performed By: #### 1 [id number] #### [facility] [address] [place] [address] eGFRon 03-22-2025 eGFR 50 mL/min/1.73 m2 Low >=59 [facility] Comment on above: Performed By: #### 1 [id number] #### [facility] [address] [place] [address] Ambulatory Visit Summaryon 0 03-17-2025 Ambulatory Visit Summary Ambulatory Visit Summary LESA TORREZ :1960 Visit Date:03/17/2025 Ambulatory Visit Instructions Your Diagnosis Welcome to Medicare preventive visit Hypertension Migraines Vertigo Screening for malignant neoplasm of colon Breast cancer screening by mammogram Ovarian failure due to menopause Encounter for hepatitis C screening test for low risk patient Screening for ischemic heart disease No advance directives Obesity due to excess calories Tests Performed BD Bone Density DEXA -- Results Pending -- MA Mamm Screen w/CAD if perf and 3D López -- Results Pending -- Please visit your patient portal for your results or contact your primary care physician. Your Care Team Attending Physician - Clarisa Lane Primary Care Physician - Clarisa Lane This Is Your Medications List bisoprolol-hydrochlorothiazide (bisoprolol-hydrochlorothiazide 10 mg-6.25 mg Tab) fluconazole (Diflucan 150 mg Tab) fluticasone nasal (fluticasone Nasal 0.05 mg/inh Severy) loratadine (Claritin) meclizine (meclizine 25 mg Tab) ondansetron (ondansetron 4 mg Dis Tab) polyethylene glycol 3350 (MiraLax) rizatriptan (rizatriptan 10 mg Dis Tab) semaglutide (Ozempic 8 mg/3 mL (2 mg dose) subcutaneous solution) Procedures Performed Colonoscopy (01/22/2012), Foot injury, Hand repair, Laparoscopic cholecystostomy, Surgery. Discharge Vitals Heart Rate (Peripheral) 74 Blood Pressure 124/60 Height 153 cm Height 60 in Weight 72.9 kg Weight 160.717 lb BMI 31.14 What to do next Scheduled Follow-Up Appointments Friday 8:20 AM EDT Where: [address] [id number] 9:30 AM EDT Where: [address] [address]- You Need to Complete the Following Comprehensive Metabolic Panel, Blood, Routine collect, 03/17/25, Order for future visit, Lab Collect, Hypertension, Not Required, Print Label By Order Location HCV Antibody RFX to Quant PCR, Blood, Routine collect, 03/17/25, Order for future visit, Lab Collect, Encounter for hepatitis C screening test for low risk patient, Not Required, Print Label By Order Location Lipid Panel, Blood, Routine collect, 03/17/25, Order for future visit, Lab Collect, Screening for ischemic heart disease, Required & Missing, Print Label By Order Location Urine Microalbumin/Creatinine Ratio, Urine, Routine collect, 03/17/25, Order for future visit, Nurse collect, Hypertension, Not Required, Print Label By Order Location Medications What How Much When Why Instructions Unchanged bisoprolol-hydrochlorothiazide (bisoprolol-hydrochlorothiazide 10 mg-6.25 mg Tab) See instructions TAKE 1 TABLET BY MOUTH EVERY DAY Unchanged fluconazole (Diflucan 150 mg Tab) 1 Tablets By Mouth Once Unchanged fluticasone nasal (fluticasone Nasal 0.05 mg/ inh Severy) See instructions USE 1 SPRAY IN EACH NOSTRIL TWICE A DAY Unchanged loratadine (Claritin) Every day Unchanged meclizine (meclizine 25 mg Tab) 1 Tablets By Mouth 3 times a day as needed for for dizziness Unchanged ondansetron (ondansetron 4 mg Dis Tab) 1 Tablets By Mouth Every 6 hours as needed for Nausea/Vomiting Encounter for health counseling related to travel Antibiotic-induced yeast infection Non-smoker BMI 28.0-28.9,adult Overweight (BMI 25.0-29.9) Unchanged polyethylene glycol 3350 (MiraLax) Unchanged rizatriptan (rizatriptan 10 mg Dis Tab) See instructions DISSOLVE 1 TAB IN MOUTH NEEDED FOR MIGRAINE, MAY REPEAT DOSE ONCE IN 2 HOURS DIRECTED Unchanged semaglutide (Ozempic 8 mg/ 3 mL (2 mg dose) subcutaneous solution) 2 Milligram Subcutaneous Every week INJECT 2MG SUBCUTANEOUSLY ONCE A WEEK Allergies Bactrim (Unknown) Problems Ongoing - Any problem that you are currently receiving treatment for. 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 Please share your experience with us by completing your survey. We appreciate your feedback and thank you for choosing us for your care. Education Materials BMI for Adults Body mass index (BMI) is a number found using a person's weight and height. BMI can help tell how much of a person's weight is made up of fat. BMI does not measure body fat directly. It is used instead of tests that directly measure body fat, which can be difficult and expensive. What are BMI m (more content not included)... Normal [facility] Ambulatory Visit Summary Ambulatory Visit Summary LESA TORREZ :1960 Visit Date:03/17/2025 Ambulatory Visit Instructions Your Diagnosis Welcome to Medicare preventive visit BMI 31.0-31.9,adult Non-smoker Your Care Team Attending Physician - Clarisa Lane Primary Care Physician - Clarisa Lane This Is Your Medications List bisoprolol-hydrochlorothiazide (bisoprolol-hydrochlorothiazide 10 mg-6.25 mg Tab) fluconazole (Diflucan 150 mg Tab) fluticasone nasal (fluticasone Nasal 0.05 mg/inh Severy) loratadine (Claritin) meclizine (meclizine 25 mg Tab) ondansetron (ondansetron 4 mg Dis Tab) polyethylene glycol 3350 (MiraLax) rizatriptan (rizatriptan 10 mg Dis Tab) semaglutide (Ozempic 8 mg/3 mL (2 mg dose) subcutaneous solution) Procedures Performed Foot injury, Hand repair, Laparoscopic cholecystostomy, Surgery. Discharge Vitals Heart Rate (Peripheral) 74 Blood Pressure 124/60 Height 153 cm Height 60 in Weight 72.9 kg Weight 160.717 lb BMI 31.14 What to do next Scheduled Follow-Up Appointments Friday. 2025 9:30 AM EDT Where: [place] [id number] Medications What How Much When Why Instructions Unchanged bisoprolol-hydrochlorothiazide (bisoprolol-hydrochlorothiazide 10 mg-6.25 mg Tab) See instructions TAKE 1 TABLET BY MOUTH EVERY DAY Unchanged fluconazole (Diflucan 150 mg Tab) 1 Tablets By Mouth Once Unchanged fluticasone nasal (fluticasone Nasal 0.05 mg/ inh Severy) See instructions USE 1 SPRAY IN EACH NOSTRIL TWICE A DAY Unchanged loratadine (Claritin) Every day Unchanged meclizine (meclizine 25 mg Tab) 1 Tablets By Mouth 3 times a day as needed for for dizziness Unchanged ondansetron (ondansetron 4 mg Dis Tab) 1 Tablets By Mouth Every 6 hours as needed for Nausea/Vomiting Encounter for health counseling related to travel Antibiotic-induced yeast infection Non-smoker BMI 28.0-28.9,adult Overweight (BMI 25.0-29.9) Unchanged polyethylene glycol 3350 (MiraLax) Unchanged rizatriptan (rizatriptan 10 mg Dis Tab) See instructions DISSOLVE 1 TAB IN MOUTH NEEDED FOR MIGRAINE, MAY REPEAT DOSE ONCE IN 2 HOURS DIRECTED Unchanged semaglutide (Ozempic 8 mg/ 3 mL (2 mg dose) subcutaneous solution) 2 Milligram Subcutaneous Every week INJECT 2MG SUBCUTANEOUSLY ONCE A WEEK Allergies Bactrim (Unknown) Problems Ongoing - Any problem that you are currently receiving treatment for. 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 Please share your experience with us by completing your survey. We appreciate your feedback and thank you for choosing us for your care. Normal [facility] Family Medicine Office/Clini c Noteon 03-17-2025 Family Medicine Office/Clinic Note Family Medicine Office/Clinic Note Chief Complaint Welcome to Medicare HPI Staff Lesa is a 64 year old female presenting for AWV welcome Review of Systems PHQ Score Initial Depression Screen Score: 0 SCORE Physical Exam Vitals & Measurements HR: 74(Peripheral) BP: 124/60 SpO2: 98% HT: 153 cm HT: 60 in WT: 72.9 kg WT: 160.717 lb BMI: 31.14 Assessment/Plan 1. Welcome to Medicare preventive visit (Z00.00: Encounter for general adult medical examination without abnormal findings) The patient was given a customized and personalized print out of all the current AHRQ USPSTF???s recommendations for preventative services and all current CDC recommended immunizations, relevant risk recommendations and the following patient brochures were given. Reviewed Medicare Prevention Services checklist. CDC-Falls Prevention and home safety screening reviewed. Patient denies any falls in last 12 months, voices no worry about falling. Exhibits no problems with sitting, standing or ambulation. Patient aware with keeping walk way area free of clutter to prevent tripping and/or falling. [place] Advance Directives reviewed. See #10. Patient denies any problems with ADL???s and Instrumental ADL???s. Cognitive screening completed with memory and clock face drawing. No deficits noted. Immunization record reviewed, discussed Shingrix vaccine, patient reports that she has had Shingle Vaccines. Patient will bring dates in. 2 COVID vaccines have been administered, with 1 Booster received. Allergies and medications reviewed and up to date. No concerns with taking medication as prescribed. Reviewed OTC medications, medication list up to date. Blood tests were reviewed: Discussed what tests need to be updated. Labs were ordered, will have completed prior to next PCP visit. Labs to be completed with [facility] 03/22/2025. No concerns with bowel/ bladder. See #5. Reviewed pain symptoms: patient denies pain today. Reviewed all outside providers that patient follows. Last visit summary notes available in chart and/or have been requested. Patient declines any signs or symptoms of depression at this time. 8 minutes spent with screening and documentation. PHQ2 screening score 0. Patient drinks alcohol monthly or less, 1-2 drinks, denies concerns. 8 minutes spent with screening and documentation. Audit score 1. Follow up scheduled with PCP, after AWV AWV has been scheduled, 03/21/2026 Medicare provides yearly screening for alcohol and depression concerns. This is completed during our Medicare wellness visit for those who do not have a current diagnosis of depression or concerns with alcohol use. I spent a total of 17 minutes on this date of service which included preparing to see the patient, face to face patient care, completing clinical documentation, obtaining and/or reviewing separately obtained history, counseling and educating the patient with handouts. Explanations were provided with reviewing questionnaires. AUDIT risk assessment screening completed, risk score (0) with patient denying concerns with use. Completed PHQ-2 risk assessment for depression with risk score (0), negative findings. Patient has been reminded to notify the provider if there would be a change or concerns with symptoms with fear, unable to sleep, worrying too much or feeling down and/or sad with lost of interest with daily activities. Will continue to monitor with screening yearly during Medicare wellness visits. Explained Chronic Care Management. Patient agrees. Referral Placed. Handout provided to patient. 2. Hypertension (I10: Essential (primary) hypertension) Patient is taking bisoprolol-hctz daily as directed. Does not monitor BP pressure at home. HTN stoplight reviewed with BP goal to be <140/90. Reviewed different factors that can alter blood pressure readings. Education handout provided with s/s to monitor for and report to provider. Patient is encouraged to increase portions of fruit, vegetables, fiber and increase exercise as much as tolerable. Reviewed importance with monitoring foods high in salt content and encouraged to limit intake, if unsure encouraged to discuss with their PCP. Encouraged to eat more chicken, fish and lean white meats and limits red meats in diet. Discussed importance with keeping BP under good control to reduce CVA risk factors. Will continue to f/u with PCP during office visits and as needed. CMP and Urine Creatinine and Microalbumin ordered. 3. Migraines (G43.909: Migraine, unspecified, not intractable, without status migrainosus) Patient has not had a migraine in at least a week, but has had them more frequently since the Botox treatments patient received last December has worn off. Patient has an appointment with Dr. Galaviz, Neurology to discuss getting on Botox treatments again. 4. Vertigo (R42: Dizziness and giddiness) Patient reports that she has had some sinus issues recently that has caused her to use her meclizine to calm the vertigo. 5. Screening (more content not included)... [facility] Comment on above: Result Comment: Elec tronically Signed By: Clarisa Lane\.br\Date and Time Signed: 03/17/25 15:49 EDT\.br\Electronically Co-Signed By: Nerissa Brito\.br\Date and Time Co-Signed: 03/17/25 14:49 EDT Family Medicine Office/Clinic Note Family Medicine Office/Clinic Note Chief Complaint Welcome to Medicare HPI Staff Lesa is a 64 year old female presenting for AWV welcome History of Present Illness pt presents today for welcome to Medicare Review of Systems PHQ Score Initial Depression Screen Score: 0 SCORE Physical Exam Vitals & Measurements HR: 74(Peripheral) BP: 124/60 SpO2: 98% HT: 153 cm HT: 60 in WT: 72.9 kg WT: 160.717 lb BMI: 31.14 General: alert, no acute distress ENMT: oral mucosa moist, no pharyngeal erythema or exudate Cardiovascular: regular rate and rhythm, normal peripheral perfusion Respiratory: Lungs CTA, respirations non labored Extremities: no deformity, no trauma Neurological: oriented x 4, LOC appropriate for age, CN II-XII intact, motor strength equal & normal bilaterally, speech normal Assessment/Plan 1. Welcome to Medicare preventive visit (Z00.00: Encounter for general adult medical examination without abnormal findings) pt presents today for welcome to medicare. pt is doing well. all screenings have been ordered. pt will return in 3 months for weight management visit. I also looked at ears since she had ear infection at last visit. ears are good today. all questions answered. 2. BMI 31.0-31.9,adult (Z68.31: Body mass index [BMI] 31.0-31.9, adult) BMI education 3. 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 Medications bisoprolol-hydrochlorothiazide 10 mg-6.25 mg Tab, See Instructions Claritin, Daily Diflucan 150 mg Tab, 1 tab(s), Oral, Once fluticasone Nasal 0.05 mg/inh Severy, See Instructions meclizine 25 mg Tab, 25 mg= 1 tab(s), Oral, TID, PRN MiraLax ondansetron 4 mg Dis Tab, 4 mg= 1 tab(s), Oral, q6hr, PRN Ozempic 8 mg/3 mL (2 mg dose) subcutaneous solution, 2 mg, SubCutaneous, qWeek, 1 refills rizatriptan 10 mg Dis Tab, See Instructions Allergies Bactrim (Unknown) Social History Alcohol Never., 11/24/2024 Substance Abuse Never., 11/24/2024 Tobacco Never (less than 100 in lifetime) Tobacco Use:., 03/04/2025 Family History Heart disease: Father. Hypertension: Mother and Father. Sleep apnea: Father. Immunizations Vaccine Date Status influenza virus vaccine, inactivated 09/17/2024 Recorded SARS-CoV-2 (COVID-19) mRNA-1273 vaccine 08/24/2021 Recorded SARS-CoV-2 (COVID-19) mRNA-1273 vaccine 11/30/2020 Recorded SARS-CoV-2 (COVID-19) mRNA-1273 vaccine 11/01/2020 Recorded influenza, unspecified formulation 08/16/2019 Given influenza virus vaccine, inactivated 08/16/2019 Recorded Normal [facility] Comment on above: Result Comment: Elec tronically Signed By: Clarisa Lane\.br\Date and Time Signed: 03/17/25 13:46 EDT Ambulatory Visit Summaryon 0 03-04-2025 Ambulatory Visit Summary Ambulatory Visit Summary LESA TORREZ :1960 Visit Date:03/04/2025 Ambulatory Visit Instructions Your Diagnosis Encounter for weight management Left otitis media Non-smoker BMI 31.0-31.9,adult, Body mass index [BMI] 31.0-31.9, adult Class 1 obesity due to excess calories with body mass index (BMI) of 31.0 to 31.9 in adult Other obesity due to excess calories Your Care Team Attending Physician - Clarisa Lane Primary Care Physician - Clarisa Lane This Is Your Medications List amoxicillin (amoxicillin 500 mg oral tablet) bisoprolol-hydrochlorothiazide (bisoprolol-hydrochlorothiazide 10 mg-6.25 mg Tab) cetirizine (Zyrtec) fluconazole (Diflucan 150 mg Tab) fluticasone nasal (fluticasone Nasal 0.05 mg/inh Severy) meclizine (meclizine 25 mg Tab) ondansetron (ondansetron 4 mg Dis Tab) polyethylene glycol 3350 (MiraLax) rizatriptan (rizatriptan 10 mg Dis Tab) semaglutide (Ozempic 8 mg/3 mL (2 mg dose) subcutaneous solution) Procedures Performed Foot injury, Hand repair, Laparoscopic cholecystostomy, Surgery. Discharge Vitals Temperature (Oral) 36.1 ???C Heart Rate (Peripheral) 88 Respiratory Rate 20 Blood Pressure 116/78 Height 153.0 cm Height 60 in Weight 72.7 kg Weight 160.276 lb BMI 31.06 What to do next Scheduled Follow-Up Appointments 2024 1:00 PM EDT With: Where: [address] [address]- 2024 2:00 PM EDT With: Clarisa Lane Where: [address] [address]- Medications What How Much When Why Instructions New amoxicillin (amoxicillin 500 mg oral tablet) 1 Tablets By Mouth 3 times a day Encounter for weight management Left otitis media Non-smoker BMI 31.0-31.9,adult Class 1 obesity due to excess calories with body mass index (BMI) of 31.0 to 31.9 in adult Duration: 7 Days Pickup at [facility]/pharmacy #[id number] Unchanged bisoprolol-hydrochlorothiazide (bisoprolol-hydrochlorothiazide 10 mg-6.25 mg Tab) See instructions TAKE 1 TABLET BY MOUTH EVERY DAY Unchanged cetirizine (Zyrtec) Unchanged fluconazole (Diflucan 150 mg Tab) 1 Tablets By Mouth Once Unchanged fluticasone nasal (fluticasone Nasal 0.05 mg/ inh Severy) See instructions USE 1 SPRAY IN EACH NOSTRIL TWICE A DAY Unchanged meclizine (meclizine 25 mg Tab) 1 Tablets By Mouth 3 times a day as needed for for dizziness Unchanged ondansetron (ondansetron 4 mg Dis Tab) 1 Tablets By Mouth Every 6 hours as needed for Nausea/Vomiting Encounter for health counseling related to travel Antibiotic-induced yeast infection Non-smoker BMI 28.0-28.9,adult Overweight (BMI 25.0-29.9) Unchanged polyethylene glycol 3350 (MiraLax) Unchanged rizatriptan (rizatriptan 10 mg Dis Tab) See instructions DISSOLVE 1 TAB IN MOUTH NEEDED FOR MIGRAINE, MAY REPEAT DOSE ONCE IN 2 HOURS DIRECTED Unchanged semaglutide (Ozempic 8 mg/ 3 mL (2 mg dose) subcutaneous solution) 2 Milligram Subcutaneous Every week INJECT 2MG SUBCUTANEOUSLY ONCE A WEEK Pharmacy Information [facility]/pharmacy #[id number]: [address], [place] [phone] Allergies Bactrim (Unknown) Problems Ongoing - Any problem that you are currently receiving treatment for. 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 Please share your experience with us by completing your survey. We appreciate your feedback and thank you for choosing us for your care. [facility] Ambulatory Visit Summary Ambulatory Visit Summary LESA TORREZ :1960 Visit Date:03/04/2025 Ambulatory Visit Instructions Your Diagnosis Encounter for weight management Left otitis media Non-smoker BMI 31.0-31.9,adult, Body mass index [BMI] 31.0-31.9, adult Class 1 obesity due to excess calories with body mass index (BMI) of 31.0 to 31.9 in adult Other obesity due to excess calories Your Care Team Attending Physician - Clarisa Lane Primary Care Physician - Clarisa Lane This Is Your Medications List amoxicillin (amoxicillin 500 mg oral tablet) bisoprolol-hydrochlorothiazide (bisoprolol-hydrochlorothiazide 10 mg-6.25 mg Tab) cetirizine (Zyrtec) fluconazole (Diflucan 150 mg Tab) fluticasone nasal (fluticasone Nasal 0.05 mg/inh Severy) meclizine (meclizine 25 mg Tab) ondansetron (ondansetron 4 mg Dis Tab) polyethylene glycol 3350 (MiraLax) rizatriptan (rizatriptan 10 mg Dis Tab) semaglutide (Ozempic 8 mg/3 mL (2 mg dose) subcutaneous solution) Procedures Performed Foot injury, Hand repair, Laparoscopic cholecystostomy, Surgery. Discharge Vitals Temperature (Oral) 36.1 ???C Heart Rate (Peripheral) 88 Respiratory Rate 20 Blood Pressure 116/78 Height 153.0 cm Height 60 in Weight 72.7 kg Weight 160.276 lb BMI 31.06 What to do next Scheduled Follow-Up Appointments 2024 1:00 PM EDT With: Where: [address] [address]- March. 2024 2:00 PM EDT With: Clarisa Lane Where: [address] [address]- Medications What How Much When Why Instructions New amoxicillin (amoxicillin 500 mg oral tablet) 1 Tablets By Mouth 3 times a day Encounter for weight management Left otitis media Non-smoker BMI 31.0-31.9,adult Class 1 obesity due to excess calories with body mass index (BMI) of 31.0 to 31.9 in adult Duration: 7 Days Pickup at [facility]/pharmacy #[id number] Unchanged bisoprolol-hydrochlorothiazide (bisoprolol-hydrochlorothiazide 10 mg-6.25 mg Tab) See instructions TAKE 1 TABLET BY MOUTH EVERY DAY Unchanged cetirizine (Zyrtec) Unchanged fluconazole (Diflucan 150 mg Tab) 1 Tablets By Mouth Once Unchanged fluticasone nasal (fluticasone Nasal 0.05 mg/ inh Severy) See instructions USE 1 SPRAY IN EACH NOSTRIL TWICE A DAY Unchanged meclizine (meclizine 25 mg Tab) 1 Tablets By Mouth 3 times a day as needed for for dizziness Unchanged ondansetron (ondansetron 4 mg Dis Tab) 1 Tablets By Mouth Every 6 hours as needed for Nausea/Vomiting Encounter for health counseling related to travel Antibiotic-induced yeast infection Non-smoker BMI 28.0-28.9,adult Overweight (BMI 25.0-29.9) Unchanged polyethylene glycol 3350 (MiraLax) Unchanged rizatriptan (rizatriptan 10 mg Dis Tab) See instructions DISSOLVE 1 TAB IN MOUTH NEEDED FOR MIGRAINE, MAY REPEAT DOSE ONCE IN 2 HOURS DIRECTED Unchanged semaglutide (Ozempic 8 mg/ 3 mL (2 mg dose) subcutaneous solution) 2 Milligram Subcutaneous Every week INJECT 2MG SUBCUTANEOUSLY ONCE A WEEK Pharmacy Information [facility]/pharmacy #[id number]: [address], [place] [phone] Allergies Bactrim (Unknown) Problems Ongoing - Any problem that you are currently receiving treatment for. 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 Please share your experience with us by completing your survey. We appreciate your feedback and thank you for choosing us for your care. [facility] Family Medicine Office/Clini c Noteon 03-04-2025 Family Medicine Office/Clinic Note Family Medicine Office/Clinic Note HPI Staff Please speak with patient about scheduling an AWV. (Welcome to Medicare) Lesa is a 64 year old female presenting for weight management Weight management: Started semaglutide from [facility] Sleeping well:Yes, 6-8 hours Chest pain:No Tremors:No Headaches:No Heart fluttering:No Blurred Vision:No Beginning weight: 164.90 Previous weight: 162.26 Today's weight: 160.27 lbs Questions/Concerns: needs refills on this... she is wanting to see if she can have this increased History of Present Illness pt presents today for weight management. Review of Systems PHQ Score Initial Depression Screen Score: 0 SCORE Physical Exam Vitals & Measurements T: 36.1 ???C(Oral) HR: 88(Peripheral) RR: 20 BP: 116/78 SpO2: 99% HT: 153.0 cm HT: 60 in WT: 72.7 kg WT: 160.276 lb BMI: 31.06 General: alert, no acute distress ENMT: oral mucosa moist, no pharyngeal erythema or exudate Cardiovascular: regular rate and rhythm, normal peripheral perfusion Respiratory: Lungs CTA, respirations non labored Extremities: no deformity, no trauma Neurological: oriented x 4, LOC appropriate for age, CN II-XII intact, motor strength equal & normal bilaterally, speech normal Assessment/Plan 1. Encounter for weight management (Z76.89: Persons encountering health services in other specified circumstances) pt presents today for weight management. will increase dose to 1.2 faxed to [facility]. RTC 3 months. will schedule AMW visit Ordered: amoxicillin, 500 mg = 1 tab(s), Oral, TID, X 7 day(s), # 21 tab(s), Refills(s) 0, Pharmacy: [facility]/pharmacy #[id number], 153, cm, 03/04/25 8:14:00 EDT, Height/Length Dosing, 72.7, kg, 03/04/25 8:14:00 EDT, Weight Dosing 2. Left otitis media (H66.92: Otitis media, unspecified, left ear) pt c/o losing her voice and drainage. left OM noted on exam. will send amoxicillin Ordered: amoxicillin, 500 mg = 1 tab(s), Oral, TID, X 7 day(s), # 21 tab(s), Refills(s) 0, Pharmacy: [facility]/pharmacy #[id number], 153, cm, 03/04/25 8:14:00 EDT, Height/Length Dosing, 72.7, kg, 03/04/25 8:14:00 EDT, Weight Dosing 3. Non-smoker (Z78.9: Other specified health status) continue not smoking Ordered: amoxicillin, 500 mg = 1 tab(s), Oral, TID, X 7 day(s), # 21 tab(s), Refills(s) 0, Pharmacy: [facility]/pharmacy #[id number], 153, cm, 03/04/25 8:14:00 EDT, Height/Length Dosing, 72.7, kg, 03/04/25 8:14:00 EDT, Weight Dosing 4. BMI 31.0-31.9,adult, (Z68.31: Body mass index [BMI] 31.0-31.9, adult)Body mass index [BMI] 31.0-31.9, adult BMI education. pt is going to change food habits Ordered: amoxicillin, 500 mg = 1 tab(s), Oral, TID, X 7 day(s), # 21 tab(s), Refills(s) 0, Pharmacy: [facility]/pharmacy #[id number], 153, cm, 03/04/25 8:14:00 EDT, Height/Length Dosing, 72.7, kg, 03/04/25 8:14:00 EDT, Weight Dosing 5. Class 1 obesity due to excess calories with body mass index (BMI) of 31.0 to 31.9 in adult (E66.811: Obesity, class 1) see above Ordered: amoxicillin, 500 mg = 1 tab(s), Oral, TID, X 7 day(s), # 21 tab(s), Refills(s) 0, Pharmacy: [facility]/pharmacy #[id number], 153, cm, 03/04/25 8:14:00 EDT, Height/Length Dosing, 72.7, kg, 03/04/25 8:14:00 EDT, Weight Dosing Other obesity due to excess calories (E66.09: Other obesity due to excess calories) see above Follow-up No qualifying data available Problem List/Past Medical History Ongoing Actinic keratosis Allergic rhinitis Anemia Antibiotic-induced yeast infection BMI 28.0-28.9,adult BMI 31.0-31.9,adult Cervical spondylosis Congestion of nasal sinus 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 Medications amoxicillin 500 mg oral tablet, 500 mg= 1 tab(s), Oral, TID bisoprolol-hydrochlorothiazide 10 mg-6.25 mg Tab, See Instructions Diflucan 150 mg Tab, 1 tab(s), Oral, Once fluticasone Nasal 0.05 mg/inh Severy, See Instructions meclizine 25 mg Tab, 25 mg= 1 tab(s), Oral, TID, PRN MiraLax ondansetron 4 mg Dis Tab, 4 mg= 1 tab(s), Oral, q6hr, PRN Ozempic 8 mg/3 mL (2 mg dose) subcutaneous solution, 2 mg, SubCutaneous, qWeek, 1 refills rizatriptan 10 mg Dis Tab, See Instructions Zyrtec Allergies Bactrim (Unknown) Social History Alcohol Never., 11/24/2024 Substance Abuse Never., 11/24/2024 Tobacco Never (less than 100 in lifetime) Tobacco Use:., 03/04/2025 Family History Heart disease: Father. Hypertension: Mother and Father. Sleep apnea: Father. Immunizations Vaccine Date Status SARS-CoV-2 (COVID-19) mRNA-1273 vaccine 08/24/2021 Recorded SARS-CoV-2 (COVID-19) mRNA-1273 vaccine 11/30/2020 Recorded SARS-CoV-2 (COVID-19) mRNA-1273 vaccine 11/01/2020 Recorded inf (more content not included)... [facility] Comment on above: Result Comment: Elec tronically Signed By: Clarisa Lane\.br\Date and Time Signed: 03/04/25 09:06 EDT Ambulatory Visit Summaryon 0 01-06-2025 Ambulatory Visit Summary Ambulatory Visit Summary LESA TORREZ :1960 Visit Date:01/06/2025 Ambulatory Visit Instructions Your Diagnosis BMI 31.0-31.9,adult Non-smoker Your Care Team Attending Physician - Clarisa Lane Primary Care Physician - Clarisa Lane This Is Your Medications List bisoprolol-hydrochlorothiazide (bisoprolol-hydrochlorothiazide 10 mg-6.25 mg Tab) fluticasone nasal (fluticasone Nasal 0.05 mg/inh Severy) meclizine (meclizine 25 mg Tab) ondansetron (ondansetron 4 mg Dis Tab) polyethylene glycol 3350 (MiraLax) rizatriptan (rizatriptan 10 mg Dis Tab) semaglutide (Ozempic 8 mg/3 mL (2 mg dose) subcutaneous solution) Procedures Performed Foot injury, Hand repair, Laparoscopic cholecystostomy, Surgery. Discharge Vitals Temperature (Tympanic) 36.4 ???C Heart Rate (Peripheral) 78 Respiratory Rate 18 Blood Pressure 100/70 Height 153.0 cm Height 60 in Weight 73.6 kg Weight 162.26 lb BMI 31.44 Medications What How Much When Why Instructions Unchanged bisoprolol-hydrochlorothiazide (bisoprolol-hydrochlorothiazide 10 mg-6.25 mg Tab) See instructions TAKE 1 TABLET BY MOUTH EVERY DAY Unchanged fluticasone nasal (fluticasone Nasal 0.05 mg/ inh Severy) See instructions USE 1 SPRAY IN EACH NOSTRIL TWICE A DAY Unchanged meclizine (meclizine 25 mg Tab) 1 Tablets By Mouth 3 times a day as needed for for dizziness Unchanged ondansetron (ondansetron 4 mg Dis Tab) 1 Tablets By Mouth Every 6 hours as needed for Nausea/Vomiting Encounter for health counseling related to travel Antibiotic-induced yeast infection Non-smoker BMI 28.0-28.9,adult Overweight (BMI 25.0-29.9) Unchanged polyethylene glycol 3350 (MiraLax) Unchanged rizatriptan (rizatriptan 10 mg Dis Tab) 1 Tablets Sublingual As Directed as needed for Migraine headache may repeat dose once in 2 hours Unchanged semaglutide (Ozempic 8 mg/ 3 mL (2 mg dose) subcutaneous solution) 2 Milligram Subcutaneous Every week INJECT 2MG SUBCUTANEOUSLY ONCE A WEEK Allergies Bactrim (Unknown) Problems Ongoing - Any problem that you are currently receiving treatment for. 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 Please share your experience with us by completing your survey. We appreciate your feedback and thank you for choosing us for your care. [facility] Family Medicine Office/Clini c Noteon 01-06-2025 Family Medicine Office/Clinic Note Family Medicine Office/Clinic Note HPI Staff Lesa is a 64 year old female presenting for acute sick visit [facility] 11/24/24 Pt states this is a continuation from the [facility], Did recently did go on a cruise and day 4 her bilateral ears feel plugged. sinus drainage/sinus pressure, denies fevers. OTC: Dayquil/Nyquil , claritin Pt refused to take covid and influenza rapid test History of Present Illness pt presents today with continued URI symptoms Review of Systems PHQ Score Initial Depression Screen Score: 0 SCORE Physical Exam Vitals & Measurements T: 36.4 ???C(Tympanic) HR: 78(Peripheral) RR: 18 BP: 100/70 SpO2: 98% HT: 60 in HT: 153.0 cm WT: 73.6 kg WT: 162.26 lb BMI: 31.44 General: alert, no acute distress ENMT: oral mucosa moist, no pharyngeal erythema or exudate Cardiovascular: regular rate and rhythm, normal peripheral perfusion Respiratory: Lungs CTA, respirations non labored Extremities: no deformity, no trauma Neurological: oriented x 4, LOC appropriate for age, CN II-XII intact, motor strength equal & normal bilaterally, speech normal Assessment/Plan 1. Cough (R05.9: Cough, unspecified) pt c/o deep cough. unable to get anything up. will send medrol dose pack and z aurea Ordered: azithromycin, = 1 packet(s), Oral, As Directed, as directed on package labeling, X 5 day(s), # 6 tab(s), Refills(s) 0, Pharmacy: [facility]/pharmacy #[id number], 153, cm, 01/06/25 11:31:00 EST, Height/Length Dosing, 73.6, kg, 01/06/25 11:31:00 EST, Weight Dosing methylPREDNISolone, = 1 packet(s), Oral, As Directed, as directed on package labeling, X 6 day(s), # 21 tab(s), Refills(s) 0, Pharmacy: [facility]/pharmacy #[id number], 153, cm, 01/06/25 11:31:00 EST, Height/Length Dosing, 73.6, kg, 01/06/25 11:31:00 EST, Weight Dosing 2. Congestion of nasal sinus (R09.81: Nasal congestion) continue flonase and claritin. Ordered: azithromycin, = 1 packet(s), Oral, As Directed, as directed on package labeling, X 5 day(s), # 6 tab(s), Refills(s) 0, Pharmacy: [facility]/pharmacy #[id number], 153, cm, 01/06/25 11:31:00 EST, Height/Length Dosing, 73.6, kg, 01/06/25 11:31:00 EST, Weight Dosing methylPREDNISolone, = 1 packet(s), Oral, As Directed, as directed on package labeling, X 6 day(s), # 21 tab(s), Refills(s) 0, Pharmacy: [facility]/pharmacy #[id number], 153, cm, 01/06/25 11:31:00 EST, Height/Length Dosing, 73.6, kg, 01/06/25 11:31:00 EST, Weight Dosing 3. BMI 31.0-31.9,adult (Z68.31: Body mass index [BMI] 31.0-31.9, adult) BMI education given Ordered: azithromycin, = 1 packet(s), Oral, As Directed, as directed on package labeling, X 5 day(s), # 6 tab(s), Refills(s) 0, [id number], cm, 01/06/25 11:31:00 EST, Height/Length Dosing, 73.6, kg, 01/06/25 11:31:00 EST, Weight Dosing methylPREDNISolone, = 1 packet(s), Oral, As Directed, as directed on package labeling, X 6 day(s), # 21 tab(s), Refills(s) 0, [id number], cm, 01/06/25 11:31:00 EST, Height/Length Dosing, 73.6, kg, 01/06/25 11:31:00 EST, Weight Dosing 4. Non-smoker (Z78.9: Other specified health status) continue not smoking Ordered: azithromycin, = 1 packet(s), Oral, As Directed, as directed on package labeling, X 5 day(s), # 6 tab(s), Refills(s) 0, [id number] 153, cm, 01/06/25 11:31:00 EST, Height/Length Dosing, 73.6, kg, 01/06/25 11:31:00 EST, Weight Dosing fluconazole, 150 mg = 1 tab(s), Oral, Once, take 1 tab on day one and 1 tabon day four, # 2 tab(s), Refills(s) 1, [id number] 153, cm, 07/27/24 14:39:00 EDT, Height/Length Dosing, 65.8, kg, 07/27/24 14:39:00 EDT, Weight Dosing methylPREDNISolone, = 1 packet(s), Oral, As Directed, as directed on package labeling, X 6 day(s), # 21 tab(s), Refills(s) 0, 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 Medications azithromycin 250 mg Tab, 1 packet(s), Oral, As Directed bisoprolol-hydrochlorothiazide 10 mg-6.25 mg Tab, See Instructions fluticasone Nasal 0.05 mg/inh [place], See Instructions meclizine 25 mg Tab, 25 mg= 1 tab(s), Oral, TID, PRN Medrol 4 mg Tab, 1 packet(s), Oral, As Directed MiraLax ondansetron 4 mg Dis Tab, 4 mg= 1 tab(s), Oral, q6hr, PRN Ozempic 8 mg/3 mL (2 mg dose) subcutaneous solution, 2 m (more content not included)... Normal [facility] Comment on above: Result Comment: Elec tronically Signed By: Clarisa Lane\.br\Date and Time Signed: 01/06/25 11:46 EST Family Medicine Office/Clini c Noteon 11-24-2024 Family Medicine Office/Clinic Note Family Medicine Office/Clinic Note Chief Complaint ears plugged HPI Staff Lesa is a 64 year old female presenting for acute visit Pt bilateral ears feel plugged pt states she has had plugged ears for more than 2 mths. Pt also states she woke up this morning with vertigo and has had it happen at least one other time during these last couple mths. pt was on a cruise and in [place] recently. pt would like to discuss restarting Ozempic and possible refill on meclizine History of Present Illness pt presents today c/o feeling like her ears are plugged Review of Systems PHQ Score Initial Depression Screen Score: 0 SCORE Physical Exam Vitals & Measurements HR: 54(Peripheral) BP: 136/80 SpO2: 98% HT: 60 in HT: 153 cm WT: 74.8 kg WT: 164.906 lb BMI: 31.95 General: alert, no acute distress ENMT: oral mucosa moist, no pharyngeal erythema or exudate, LÓPEZ TM bulging with clear fluid, left canal and TM red Cardiovascular: regular rate and rhythm, normal peripheral perfusion Respiratory: Lungs CTA, respirations non labored Extremities: no deformity, no trauma Neurological: oriented x 4, LOC appropriate for age, CN II-XII intact, motor strength equal & normal bilaterally, speech normal Assessment/Plan 1. Left otitis media (H66.92: Otitis media, unspecified, left ear) Left OM noted on exam. will treat with amoxicillin Ordered: amoxicillin, 875 mg = 1 tab(s), Oral, BID, X 7 day(s), # 14 tab(s), Refills(s) 0, Pharmacy: [facility]/pharmacy #[id number], 153, cm, 11/24/24 15:20:00 EST, Height/Length Dosing, 74.8, kg, 11/24/24 15:19:00 EST, Weight Dosing fluticasone nasal, 1 spray(s), Nasal, BID, 16 gram, Refill(s) 0, each nostril, [facility]/pharmacy #[id number], 153, cm, 11/24/24 15:20:00 EST, Height/Length Dosing, 74.8, kg, 11/24/24 15:19:00 EST, Weight Dosing 2. Fluid level behind tympanic membrane of both ears (H65.93: Unspecified nonsuppurative otitis media, bilateral) LÓPEZ TM bulging with clear fluid. will give 40mg kenalog in office today. flonase also sent in. pt will start taking claritin daily Ordered: amoxicillin, 875 mg = 1 tab(s), Oral, BID, X 7 day(s), # 14 tab(s), Refills(s) 0, Pharmacy: [facility]/pharmacy #[id number], 153, cm, 11/24/24 15:20:00 EST, Height/Length Dosing, 74.8, kg, 11/24/24 15:19:00 EST, Weight Dosing fluticasone nasal, 1 spray(s), Nasal, BID, 16 gram, Refill(s) 0, each nostril, [facility]/pharmacy #[id number], 153, cm, 11/24/24 15:20:00 EST, Height/Length Dosing, 74.8, kg, 11/24/24 15:19:00 EST, Weight Dosing 3. Vertigo (R42: Dizziness and giddiness) pt has had two episodes of vertigo. one this morning. she had meclizine from a couple years ago from Dr. Knox. will send in new rx Ordered: amoxicillin, 875 mg = 1 tab(s), Oral, BID, X 7 day(s), # 14 tab(s), Refills(s) 0, Pharmacy: [facility]/pharmacy #[id number], 153, cm, 11/24/24 15:20:00 EST, Height/Length Dosing, 74.8, kg, 11/24/24 15:19:00 EST, Weight Dosing fluticasone nasal, 1 spray(s), Nasal, BID, 16 gram, Refill(s) 0, each nostril, [id number], 153, cm, 11/24/24 15:20:00 EST, Height/Length Dosing, 74.8, kg, 11/24/24 15:19:00 EST, Weight Dosing 4. Weight gain (R63.5: Abnormal weight gain) pt would like to start back on semaglutide from [facility]. will start with lowest moya fir 1 month then move up to 0.6mg. RTC 3 months 5. 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 Medications amoxicillin 875 mg Tab, 875 mg= 1 tab(s), Oral, BID bisoprolol-hydrochlorothiazide 10 mg-6.25 mg Tab, See Instructions Diflucan 150 mg Tab, 150 mg= 1 tab(s), Oral, Once, 1 refills Flonase 0.05 mg/inh [place], 1 spray(s), Nasal, BID meclizine 25 mg Tab, 25 mg= 1 tab(s), Oral, TID, PRN MiraLax ondansetron 4 mg Dis Tab, 4 mg= 1 tab(s), Oral, q6hr, PRN Ozempic 8 mg/3 mL (2 mg dose) subcutaneous solution, 2 mg, SubCutaneous, qWeek, 1 refills rizatriptan 10 mg Dis Tab, 10 mg= 1 tab(s), SubLingual, As Directed, PRN Zyrtec Allergies Bactrim (Unknown) Social History Alcohol Never., 11/24/2024 Substance Abuse Never., 11/24/2024 Tobacco Never ( (more content not included)... [facility] Comment on above: Result Comment: Elec tronically Signed By: Clarisa Lane\.br\Date and Time Signed: 11/24/24 15:49 EST Provider Letteron 11-24-2024 Provider Letter Provider Letter November 24, 2024 LESA TORREZ [address] [place] [id number] : 1960 To Whom It May Concern, Please excuse above patient from work. Date of Illness: From: 11/24/2024 To: 11/25/2024 May Return to Work On: 11/26/2024 Sincerely, Family Medicine [address] [address] Normal [facility] Ambulatory Visit Summaryon 0 07-27-2024 Ambulatory Visit Summary Ambulatory Visit Summary LESA TORREZ :1960 Visit Date:07/27/2024 Ambulatory Visit Instructions Your Diagnosis UTI symptoms Antibiotic-induced yeast infection Non-smoker BMI 28.0-28.9,adult Overweight (BMI 25.0-29.9) Adverse effect of unspecified systemic antibiotic, initial encounter Your Care Team Attending Physician - Clarisa Lane Primary Care Physician - Clarisa Lane This Is Your Medications List bisoprolol-hydrochlorothiazide (bisoprolol-hydrochlorothiazide 10 mg-6.25 mg Tab) cetirizine (Zyrtec) polyethylene glycol 3350 (MiraLax) rizatriptan (rizatriptan 10 mg Dis Tab) semaglutide (Ozempic 8 mg/3 mL (2 mg dose) subcutaneous solution) Procedures Performed Foot injury, Hand repair, Laparoscopic cholecystostomy, Surgery. Discharge Vitals Temperature (Temporal Artery) 36.6 ?C Heart Rate (Peripheral) 70 Respiratory Rate 18 Blood Pressure 128/84 Height 153.0 cm Height 60 in Weight 65.8 kg Weight 144.76 lb BMI 28.11 Medications What How Much When Instructions Unchanged bisoprolol-hydrochlorothiazide (bisoprolol-hydrochlorothiazide 10 mg-6.25 mg Tab) 1 Tablets By Mouth Every day Unchanged cetirizine (Zyrtec) Unchanged polyethylene glycol 3350 (MiraLax) Unchanged rizatriptan (rizatriptan 10 mg Dis Tab) 1 Tablets Sublingual As Directed Unchanged semaglutide (Ozempic 8 mg/ 3 mL (2 mg dose) subcutaneous solution) 2 Milligram Subcutaneous Every week INJECT 2MG SUBCUTANEOUSLY ONCE A WEEK Allergies Bactrim (Unknown) Problems Ongoing - Any problem that you are currently receiving treatment for. 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 Please share your experience with us by completing your survey. We appreciate your feedback and thank you for choosing us for your care. Normal [facility] Family Medicine Office/Clini c Noteon 07-27-2024 Family Medicine Office/Clinic Note Family Medicine Office/Clinic Note HPI Staff Lesa is a 64 year old female presenting with f/u with med refills and wants to discuss traveling out of the country Needs Rizatrptan refilled She has old Ondansetron 4 mg that she still had from the past and might want this refilled for her [facility] trip She wants to know if she can have antibiotic on hand in case she needs it Ozempic- still taking but will stop when she leaves on August 07 History of Present Illness pt presents today to discuss upcoming international travel Review of Systems PHQ Score Initial Depression Screen Score: 0 SCORE Physical Exam Vitals & Measurements T: 36.6 ?C(Temporal Artery) HR: 70(Peripheral) RR: 18 BP: 128/84 SpO2: 99% HT: 60 in HT: 153.0 cm WT: 65.8 kg WT: 144.76 lb BMI: 28.11 General: alert, no acute distress ENMT: oral mucosa moist, no pharyngeal erythema or exudate Cardiovascular: regular rate and rhythm, normal peripheral perfusion Respiratory: Lungs CTA, respirations non labored Extremities: no deformity, no trauma Neurological: oriented x 4, LOC appropriate for age, CN II-XII intact, motor strength equal & normal bilaterally, speech normal Assessment/Plan 1. Encounter for health counseling related to travel (Z71.84: Encounter for health counseling related to travel) pt presents today to discuss upcoming travel out of the country. will be on cruise for 25 days going to [facility] and [place]. will send cipro, zofran and diflucan. also needs refills on migraine med. all questions answered. RTC as needed Ordered: ciprofloxacin, 500 mg = 1 tab(s), Oral, q12hr, X 7 day(s), # 14 tab(s), Refills(s) 0, Pharmacy: [id number], 153, cm, 07/27/24 14:39:00 EDT, Height/Length Dosing, 65.8, kg, 07/27/24 14:39:00 EDT, Weight Dosing fluconazole, 150 mg = 1 tab(s), Oral, Once, take 1 tab on day one and 1 tabon day four, # 2 tab(s), Refills(s) 1, [id number], cm, 07/27/24 14:39:00 EDT, Height/Length Dosing, 65.8, kg, 07/27/24 14:39:00 EDT, Weight Dosing ondansetron, 4 mg = 1 tab(s), Oral, q6hr, PRN Nausea/Vomiting, # 12 tab(s), Refills(s) 0, [id number], cm, 07/27/24 14:39:00 EDT, Height/Length Dosing, 65.8, kg, 07/27/24 14:39:00 EDT, Weight Dosing 2. Antibiotic-induced yeast infection (B37.9: Candidiasis, unspecified) will send diflucan Ordered: ciprofloxacin, 500 mg = 1 tab(s), Oral, q12hr, X 7 day(s), # 14 tab(s), Refills(s) 0, [id number] 153, cm, 07/27/24 14:39:00 EDT, Height/Length Dosing, 65.8, kg, 07/27/24 14:39:00 EDT, Weight Dosing fluconazole, 150 mg = 1 tab(s), Oral, Once, take 1 tab on day one and 1 tabon day four, # 2 tab(s), Refills(s) 1, [id number] 153, cm, 07/27/24 14:39:00 EDT, Height/Length Dosing, 65.8, kg, 07/27/24 14:39:00 EDT, Weight Dosing ondansetron, 4 mg = 1 tab(s), Oral, q6hr, PRN Nausea/Vomiting, # 12 tab(s), Refills(s) 0, [id number] 153, cm, 07/27/24 14:39:00 EDT, Height/Length Dosing, 65.8, kg, 07/27/24 14:39:00 EDT, Weight Dosing 3. Non-smoker (Z78.9: Other specified health status) continue not smoking Ordered: ciprofloxacin, 500 mg = 1 tab(s), Oral, q12hr, X 7 day(s), # 14 tab(s), Refills(s) 0, [id number] 153, cm, 07/27/24 14:39:00 EDT, Height/Length Dosing, 65.8, kg, 07/27/24 14:39:00 EDT, Weight Dosing fluconazole, 150 mg = 1 tab(s), Oral, Once, take 1 tab on day one and 1 tabon day four, # 2 tab(s), Refills(s) 1, [id number] 153, cm, 07/27/24 14:39:00 EDT, Height/Length Dosing, 65.8, kg, 07/27/24 14:39:00 EDT, Weight Dosing ondansetron, 4 mg = 1 tab(s), Oral, q6hr, PRN Nausea/Vomiting, # 12 tab(s), Refills(s) 0, [id number] 153, cm, 07/27/24 14:39:00 EDT, Height/Length Dosing, 65.8, kg, 07/27/24 14:39:00 EDT, Weight Dosing 4. BMI 28.0-28.9,adult (Z68.28: Body mass index [BMI] 28.0-28.9, adult) BMI education given Ordered: ciprofloxacin, 500 mg = 1 tab(s), Oral, q12hr, X 7 day(s), # 14 tab(s), Refills(s) 0, [id number] 153, cm, 07/27/24 14:39:00 EDT, Height/Length Dosing, 65.8, kg, 07/27/24 14:39:00 EDT, Weight Dosing fluconazole, 150 mg = 1 tab(s), Oral, Once, take 1 tab on day one and 1 tabon day four, # 2 tab(s), Refills(s) 1, [id number] 153, cm, 07/27/24 14:39:00 EDT, Height/Length Dosing, 65.8, kg, 07/27/24 14:39:00 EDT, Weight Dosing ondansetron, 4 mg = 1 tab(s), Oral, q6hr, PRN Nausea/Vomiting, # 12 tab(s), Refills(s) 0, Pharmacy: [facility]/pharmacy #[id number], 153, cm, 07/27/24 14:39:00 EDT, Height/Length Dosing, 65.8, kg, 07/27/24 14:39:00 EDT, Weight Dosing 5. Overweight (BMI 25.0-29.9) (E66.3: Overweight) see above Ordered: ciprofloxacin, 500 mg = 1 tab(s), Oral, q12hr, X 7 day(s), # 14 tab(s), Refills(s) 0, Pharmacy: [facility]/pharmacy #[id number], 153, cm, 07/27/24 14:39:00 EDT, Height/Length Dosing, 65.8, kg, 07/27/24 14:39:00 EDT, Weight Dosing fluconazole, 150 mg = 1 tab(s), Oral, Once, take 1 tab on day one a (more content not included)... Normal [facility] Comment on above: Result Comment: Elec tronically Signed By: Clarisa Lane\.br\Date and Time Signed: 07/27/24 15:34 EDT RAD - MISCon 04-28-2024 RAD - MISC [id number] Normal [facility] CBC AUTO DIFFon 11-04-2022 BASO # 0.0 103/ul Normal 0.0-0.1 [facility] Comment on above: Performed By: #### C BC #### [facility] [address] [place] [address] Dr. Sae Chapman Basophils/100 WBC (Bld) 0.4 % Normal 0.2-2.0 [facility] Comment on above: Performed By: #### C BC #### [facility] [address] [place] [address] Dr. Sea Chapman EO # 0.1 103/ul Normal 0.0-0.7 [facility] Comment on above: Performed By: #### C BC #### [facility] [address] [place] [address] Dr. Sae Chapman Eosinophils/100 WBC (Bld) 1.1 % Normal 0.9-7.0 [facility] Comment on above: Performed By: #### C BC #### [facility] [address] [place] [address] Dr. Sae Chapman Erythrocyte distribution width (RBC) [Ratio] 12.8 % Normal 11.0-15.0 [facility] Comment on above: Performed By: #### C BC #### [facility] [address] [place] [address] Dr. Sae Chapman Hematocrit (Bld) [Volume fraction] 45.0 % Normal 36.0-48.0 [facility] Comment on above: Performed By: #### C BC #### [facility] [address] [place] [address] Dr. Sae Chapman Hemoglobin (Bld) [Mass/Vol] 15.4 g/dL Normal 12.0-16.0 [facility] Comment on above: Performed By: #### C BC #### [facility] [address] [place] [address] Dr. Sae Chapman IG # 0.02 10e3/ul Normal 0.00-0.03 [facility] Comment on above: Performed By: #### C BC #### [facility] [address] [place] [address] Dr. Sae Chapman IG % 0.2 % Normal 0.0-0.5 [facility] Comment on above: Performed By: #### C BC #### [facility] [address] [place] [address] Dr. Sae Chapman LYMPH # 1.4 103/ul Normal 1.2-3.8 [facility] Comment on above: Performed By: #### C BC #### [facility] [address] [place] [address] Dr. Sae Chapman Lymphocytes/100 WBC (Bld) 12.6 % Critically low 20.5-60.0 [facility] Comment on above: Performed By: #### C BC #### [facility] [address] [place] [address] Dr. Sae Chapman MANUAL DIFF REQ NO Normal [facility] Comment on above: Performed By: #### C BC #### [facility] [address] [place] [address] Dr. Sae Chapman MCH (RBC) [Entitic mass] 30.0 pg Normal 26.7-34.0 [facility] Comment on above: Performed By: #### C BC #### [facility] [address] [place] [address] Dr. Sae Chapman MCHC (RBC) [Mass/Vol] 34.2 g/dL Normal 29.9-35.2 [facility] Comment on above: Performed By: #### C BC #### [facility] [address] [place] [address] Dr. Sae Chapman MCV (RBC) [Entitic vol] 87.7 fL Normal 81.0-99.0 [facility] Comment on above: Performed By: #### C BC #### [facility] [address] [place] [address] Dr. Sae Chapman MONO # 0.7 103/ul Normal 0.3-0.8 [facility] Comment on above: Performed By: #### C BC #### [facility] [address] [place] [address] Dr. Sae Chapman Monocytes/100 WBC (Bld) 6.2 % Normal 1.7-12.0 [facility] Comment on above: Performed By: #### C BC #### [facility] [address] [place] [address] Dr. Sae Chapman NEUT # 8.5 103/ul Critically high 1.4-6.5 [facility] Comment on above: Performed By: #### C BC #### [facility] [address] [place] [address] Dr. Sae Chapman Neutrophils/100 WBC (Bld) 79.5 % Critically high 43.0-75.0 [facility] Comment on above: Performed By: #### C BC #### [facility] [address] [place] [address] Dr. Sae Chapman Platelet mean volume (Bld) [Entitic vol] 9.1 fL Critically low 9.5-13.5 [facility] Comment on above: Performed By: #### C BC #### [facility] [address] [place] [address] Dr. Sae Chapman PLT 259 103/ul Normal 150-450 [facility] Comment on above: Performed By: #### C BC #### [facility] [address] [place] [address] Dr. Sae Chapman RBC 5.13 106/ul Normal 4.20-5.40 [facility] Comment on above: Performed By: #### C BC #### [facility] [address] [place] [address] Dr. Sae Chapman WBC 10.7 103/ul Normal 4.0-11.0 [facility] Comment on above: Performed By: #### C BC #### [facility] [address] [place] [address] Dr. Sae Chapman PROF CHEM 8 (BAS METB)on Anion gap [Moles/Vol] 13.6 mmol/L Normal [facility] Comment on above: Performed By: #### B MP #### [facility] [address] [place] [address] Dr. Sae Chapman Calcium [Mass/Vol] 9.8 mg/dL Normal 8.5-10.1 [facility] Comment on above: Performed By: #### B MP #### [facility] [address] [place] [address] Dr. Sae Chapman Chloride [Moles/Vol] 100 mmol/L Normal 98-107 [facility] Comment on above: Performed By: #### B MP #### [facility] [address] [place] [address] Dr. Sae Chapman CO2 [Moles/Vol] 29.2 mmol/L Normal 21.0-32.0 [facility] Comment on above: Performed By: #### B MP #### [facility] [address] [place] [address] Dr. Sae Chapman Creatinine [Mass/Vol] 0.99 mg/dL Normal 0.55-1.02 [facility] Comment on above: Performed By: #### B MP #### [facility] [address] [address] [address] Sae Chapman EGFR-AF ERITREAN >60 Normal >=60 [facility] Comment on above: Performed By: #### B MP #### [facility] [address] [address] [address] Sae Chapman EGFR-NON AF ERITREAN 56 mL/min/1.73m2 Critically low >=60 [facility] Comment on above: Performed By: #### B MP #### [facility] [address] [address] [address] Sae Chapman Glucose [Mass/Vol] 143 mg/dL Critically high 74-106 [facility] Comment on above: Performed By: #### B MP #### [facility] [address] [address] [address] Sae Chapman Potassium [Moles/Vol] 3.8 mmol/L Normal 3.5-5.1 [facility] Comment on above: Performed By: #### B MP #### [facility] [address] [address] [address] Sae Chapman Sodium [Moles/Vol] 139 mmol/L Normal 136-145 [facility] Comment on above: Performed By: #### B MP #### [facility] [address] [address] [address] Sae Chapman Urea nitrogen [Mass/Vol] 15.0 mg/dL Normal 7.0-18.0 [facility] Comment on above: Performed By: #### B MP #### [facility] [address] [address] [address] Sae Chapman Urea nitrogen/Creatini ne [Mass ratio] 15.2 mg/mg Normal [facility] Comment on above: Performed By: #### B MP #### [facility] [address] [place] [address] Dr. Sae Chapman MG MAMM SCREEN 3D LÓPEZ CADon 07-09-2022 MG MAMM SCREEN 3D LÓPEZ CAD Patient: LESA TORREZ Exam Date: 07/09/2022 : 1960 Gender:F Ordering : DR DELON KNOX . Admission #: [id number] Family : Order #: [id number] CLICK HERE TO VIEW EXAM RADIOLOGY REPORT PROCEDURE: MAMMOGRAM SCREENING 3D BILATERAL CAD COMPARISON: MG MAMM SCREEN 3D LÓPEZ CAD, 05/30/2021. MG MAMM SCREEN LÓPEZ W CAD, 10/06/2018. INDICATIONS: Screening mammography Calculator Name NCI Breast Cancer Risk Assessment Tool 5 Year Breast Cancer Risk 1.80% Lifetime Breast Cancer Risk 7.20% Personal Breast Cancer No Personal Ovarian Cancer No Treatments None Family Cancers None LOCATION: [facility] BREAST COMPOSITION: Heterogeneously dense,which may obscure small [...] Grossman M.D. on 07/10/2022 at 10:35 Normal [facility] CBC AUTO DIFFon 06-18-2022 BASO # 0.0 103/ul Normal 0.0-0.1 [facility] Comment on above: Performed By: #### C BC ####[facility] [address] [id number] Chapman Basophils/100 WBC (Bld) 0.6 % Normal 0.2-2.0 [facility] Comment on above: Performed By: #### C BC ####[facility] [address] [id number] Chapman EO # 0.2 103/ul Normal 0.0-0.7 [facility] Comment on above: Performed By: #### C BC ####[facility] [address] [id number] Chapman Eosinophils/100 WBC (Bld) 3.3 % Normal 0.9-7.0 [facility] Comment on above: Performed By: #### C BC ####[facility] [address] [place], [place] [address]Dr. Sae Chapman Erythrocyte distribution width (RBC) [Ratio] 12.7 % Normal 11.0-15.0 [facility] Comment on above: Performed By: #### C BC ####[facility] [address] [place], [place] [address]Dr. Sae Chapman Hematocrit (Bld) [Volume fraction] 42.2 % Normal 36.0-48.0 [facility] Comment on above: Performed By: #### C BC ####[facility] [address] [place], [place] [address]Dr. Sae Chapman Hemoglobin (Bld) [Mass/Vol] 14.2 g/dL Normal 12.0-16.0 [facility] Comment on above: Performed By: #### C BC ####[facility] [address] [place], [place] [address]Dr. Sae Chapman IG # 0.00 10e3/ul Normal 0.00-0.03 [facility] Comment on above: Performed By: #### C BC ####[facility] [address] [place], [place] [address]Dr. Sae Chapman IG % 0.0 % Normal 0.0-0.5 [facility] Comment on above: Performed By: #### C BC ####[facility] [address] [place], [place] [address]Dr. Sae Chapman LYMPH # 1.6 103/ul Normal 1.2-3.8 [facility] Comment on above: Performed By: #### C BC ####[facility] [address] [place], [place] [address]Dr. Sae Chapman Lymphocytes/100 WBC (Bld) 29.8 % Normal 20.5-60.0 [facility] Comment on above: Performed By: #### C BC ####[facility] [address] [place], [place] [address]Dr. Sae Chapman MANUAL DIFF REQ NO Normal [facility] Comment on above: Performed By: #### C BC ####[facility] [address] [address]Dr. Sae Chapman MCH (RBC) [Entitic mass] 30.5 pg Normal 26.7-34.0 [facility] Comment on above: Performed By: #### C BC ####[facility] [address] [place], [place] [address]Dr. Sae Chapman MCHC (RBC) [Mass/Vol] 33.6 g/dL Normal 29.9-35.2 [facility] Comment on above: Performed By: #### C BC ####[facility] [address] [place], [place] [address]DrGabrielle Chapman MCV (RBC) [Entitic vol] 90.6 fL Normal 81.0-99.0 [facility] Comment on above: Performed By: #### C BC ####[facility] [address] [place], [place] [address]DrGabrielle Chapman MONO # 0.5 103/ul Normal 0.3-0.8 [facility] Comment on above: Performed By: #### C BC ####[facility] [address] [place], [place] [address]DrGabrielle Chapman Monocytes/100 WBC (Bld) 8.6 % Normal 1.7-12.0 [facility] Comment on above: Performed By: #### C BC ####[facility] [address] [place], [place] [address]DrGabrielle Chapman NEUT # 3.0 103/ul Normal 1.4-6.5 [facility] Comment on above: Performed By: #### C BC ####[facility] [address] [place], [place] [address]DrGabrielle Chapman Neutrophils/100 WBC (Bld) 57.7 % Normal 43.0-75.0 [facility] Comment on above: Performed By: #### C BC ####[facility] [address] [place], [place] [address]DrGabrielle Chapman Platelet mean volume (Bld) [Entitic vol] 9.1 fL Critically low 9.5-13.5 [facility] Comment on above: Performed By: #### C BC ####[facility] [address] [id number] Chapman PLT 254 103/ul Normal 150-450 [facility] Comment on above: Performed By: #### C BC ####[facility] [address] [address]Dr. Sae Chapman RBC 4.66 106/ul Normal 4.20-5.40 [facility] Comment on above: Performed By: #### C BC ####[facility] [address] [address]Dr. Sae Chapman WBC 5.2 103/ul Normal 4.0-11.0 [facility] Comment on above: Performed By: #### C BC ####[facility] [address] [address]Dr. Sae Chapman GLYCOHEMOGLOBIN A1Con 2021 ADA RECOMMENDATION SEE BELOW Normal [facility] Comment on above: Result Comment: ADA RECOMMENDED LIMIT 4.0 - 6.0 ADA THERAPEUTIC TARGET < 7.0 ACTION SUGGESTED > 7.0 Performed By: #### A 1C #### [facility] [address] [place] [address] Dr. Sae Chapman Glucose [Mass/Vol] 103 mg/dL Normal [facility] Comment on above: Performed By: #### A 1C #### [facility] [address] [address] [address] Sae Chapman HbA1c (Bld) [Mass fraction] 5.2 % Normal 4.5-6.2 [facility] Comment on above: Performed By: #### A 1C #### [facility] [address] [place] [address] Dr. Sae Chapman LIPID PROFILEon 06-18-2022 CHOL-HDL RATIO NORM SEE BELOW Normal [facility] Comment on above: Result Comment: 3.3 - 4.4 LOW RISK 4.4 - 7.1 AVERAGE RISK 7.1 - 11.0 MODERATE RISK >11.0 HIGH RISK Performed By: #### C MP, LIPID, TSH #### [facility] [address] [address] [address] Sae Chapman Cholesterol [Mass/Vol] 178 mg/dL Normal <=200 [facility] Comment on above: Performed By: #### C MP, LIPID, TSH #### [facility] [address] [address] [address] Sae Chapman Cholesterol in HDL [Mass/Vol] 41 mg/dL Normal 40-60 [facility] Comment on above: Performed By: #### C MP, LIPID, TSH #### [facility] [address] [address] [address] Sae Chapman Cholesterol in LDL [Mass/Vol] 101.6 mg/dL Normal [facility] Comment on above: Performed By: #### C MP, LIPID, TSH #### [facility] [address] [address] [address] Sae Chapman Cholesterol.total /Cholesterol in HDL [Mass ratio] 4.3 {ratio} Normal [facility] Comment on above: Performed By: #### C MP, LIPID, TSH #### [facility] [address] [address] [address] Sae Chapman HDL NORMAL > or = 60 mg/dl - LO W CARDIOVASCULAR RISK <40 mg/dl - HIGH CARDIOVASCULAR RISK Normal [facility] Comment on above: Performed By: #### C MP, LIPID, TSH #### [facility] [address] [address] [address] Sae Chapman LDL CALC NORMAL SEE BELOW Normal [facility] Comment on above: Result Comment: <100 mg/dl OPTIMAL 100 - 129 mg/dl NEAR OR ABOVE OPTIMAL 130 - 159 mg/dl BORDERLINE HIGH 160 - 189 mg/dl HIGH >190 mg/dl VERY HIGH Performed By: #### C MP, LIPID, TSH #### [facility] [address] [address] [address] Sae Chapman Triglyceride [Mass/Vol] 177 mg/dL Critically high <=150 [facility] Comment on above: Performed By: #### C MP, LIPID, TSH #### [facility] [address] [address] [address] Sae Chapman VLDL CALC 35.4 mg/dL Normal [facility] Comment on above: Performed By: #### C MP, LIPID, TSH #### [facility] [address] [place] [address] Dr. Sae Chapman PROF 14(COMP METB)on 022 Albumin [Mass/Vol] 3.9 g/dL Normal 3.4-5.0 [facility] Comment on above: Performed By: #### C MP, LIPID, TSH #### [facility] [address] [address] [address] Sae Chapman Albumin/Globulin [Mass ratio] 1.3 {ratio} Normal [facility] Comment on above: Performed By: #### C MP, LIPID, TSH #### [facility] [address] [place] [address] Dr. Sae Chapman ALP [Catalytic activity/Vol] 58 U/L Normal 46-116 [facility] Comment on above: Performed By: #### C MP, LIPID, TSH #### [facility] [address] [place] [address] Dr. Sae Chapman ALT [Catalytic activity/Vol] 23 U/L Normal 14-59 [facility] Comment on above: Performed By: #### C MP, LIPID, TSH #### [facility] [address] [place] [address] Dr. Sae Chapman Anion gap [Moles/Vol] 10.8 mmol/L Normal [facility] Comment on above: Performed By: #### C MP, LIPID, TSH #### [facility] [address] [place] [address] Dr. Sae Chapman AST [Catalytic activity/Vol] 16 U/L Normal 15-37 [facility] Comment on above: Performed By: #### C MP, LIPID, TSH #### [facility] [address] [place] [address] Dr. Sae Chapman Bilirubin [Mass/Vol] 0.4 mg/dL Normal 0.2-1.0 [facility] Comment on above: Performed By: #### C MP, LIPID, TSH #### [facility] [address] [address] [address] Sae Chapman Calcium [Mass/Vol] 9.1 mg/dL Normal 8.5-10.1 [facility] Comment on above: Performed By: #### C MP, LIPID, TSH #### [facility] [address] [address] [address] Sae Chapman Chloride [Moles/Vol] 102 mmol/L Normal 98-107 [facility] Comment on above: Performed By: #### C MP, LIPID, TSH #### [facility] [address] [address] [address] Sae Chapman CO2 [Moles/Vol] 30.0 mmol/L Normal 21.0-32.0 [facility] Comment on above: Performed By: #### C MP, LIPID, TSH #### [facility] [address] [place] [address] Dr. Sae Chapman Creatinine [Mass/Vol] 0.93 mg/dL Normal 0.55-1.02 [facility] Comment on above: Performed By: #### C MP, LIPID, TSH #### [facility] [address] [place] [address] Dr. Sae Chapman EGFR-AF ERITREAN >60 Normal >=60 [facility] Comment on above: Performed By: #### C MP, LIPID, TSH #### [facility] [address] [place] [address] Dr. Sae Chapman EGFR-NON AF ERITREAN >60 Normal >=60 [facility] Comment on above: Performed By: #### C MP, LIPID, TSH #### [facility] [address] [place] [address] Dr. Sae Chapman Globulin (S) [Mass/Vol] 3.1 g/dL Normal [facility] Comment on above: Performed By: #### C MP, LIPID, TSH #### [facility] [address] [place] [address] Dr. Sae Chapman Glucose [Mass/Vol] 97 mg/dL Normal 74-106 [facility] Comment on above: Performed By: #### C MP, LIPID, TSH #### [facility] [address] [place] [address] Dr. Sae Chapman Potassium [Moles/Vol] 3.8 mmol/L Normal 3.5-5.1 [facility] Comment on above: Performed By: #### C MP, LIPID, TSH #### [facility] [address] [place] [address] Dr. Sae Chapman Protein [Mass/Vol] 7.0 g/dL Normal 6.4-8.2 [facility] Comment on above: Performed By: #### C MP, LIPID, TSH #### [facility] [address] [place] [address] Dr. Sae Chapman Sodium [Moles/Vol] 139 mmol/L Normal 136-145 [facility] Comment on above: Performed By: #### C MP, LIPID, TSH #### [facility] [address] [place] [address] Dr. Sae Chapman Urea nitrogen [Mass/Vol] 13.0 mg/dL Normal 7.0-18.0 [facility] Comment on above: Performed By: #### C MP, LIPID, TSH #### [facility] [address] [place] [address] Dr. Sae Chapman Urea nitrogen/Creatini ne [Mass ratio] 14.0 mg/mg Normal [facility] Comment on above: Performed By: #### C MP, LIPID, TSH #### [facility] [address] [place] [address] Dr. Sae Chapman TSHon 06-18-2022 TSH 1.156 uIU/mL Normal 0.358-3.74 0 [facility] Comment on above: Performed By: #### C MP, LIPID, TSH #### [facility] [address] [place] [address] Dr. Sae Chapman ASYMPTOMATIC COVID-19 ANTIGE Non 03-08-2022 EUA Statement SEE BELOW Normal [facility] Comment on above: Result Comment: This test [...] sooner. Performed By: #### C VDAGA #### [facility] [address] [place] [address] Dr. Sae Chapman SARS-CoV-2 (COVID-19) RNA REMIGIO+probe Ql (Unsp spec) Negative Normal NEGATIVE [facility] Comment on above: Result Comment: Nega tive results are presumptive. They do not preclude infection and should not be used as the sole basis for treatment decisions. Additional confirmatory testing by a molecular method should be considered. Performed By: #### C VDAGA #### [facility] [address] [address] [address] Sae Chapman XR ANKLE LÓPEZ MIN 3 VIEWSon 0 11-22-2021 XR ANKLE LÓPEZ MIN 3 VIEWS EXAMINATION: XR FOOT LÓPEZ MIN 3 VIEWS, XR ANKLE LÓPEZ MIN 3 VIEWS HISTORY: Pain in both [...] by: ELIZABETH HENSLEY Date: 2021-11-22 11:13 Normal [facility] CNCOon 06-15-2018 CNCO Letter TextChristoph africa Chen, DPMKOLCZUN [id number] [place], [place] [address]Kldxr: [phone] 2017Re: Lesa Elizabet Torrez[address] [facility] [address]YEQ: [phone] Whom It May Concern:This is to certify [...] to contact glenis at the number above.Thank you,uLis Penaectronically signed to expedite processing Normal [facility] CNOVon 06-03-2018 CNOV Office Visit (ANDREYORRTanvi) Balwinder TORREZ ([id number]) 1960 FDate Time Provider Department06/03/18 10:45 AM [...] any questions or problems interimChrisBLAINE MolinaMReferring Provider: ELIO CHEN [[id number]]Allergies As of Date: 06/03/2018 Noted Allergy ReactionBACTRIM (SULFAMETHOXAZOLE-TRIMETH*04/28/ 015 4 - HivesDate Reviewed: 06/03/2018Reviewed by: Ketty Robertson Clinical Tech - Fully AssessedReason for Visit: Post Op [174]Primary Visit Diagnosis:Follow-up examination following surgery [Z09] Other Visit Diagnoses:Hammer toe of right foot [M20.41] Metatarsal deformity, right [M21.961] Contracted, joint, multiple sites [M24.50] Hallux valgus with bunions of right foot [M20.11, M21.611]Order(s):XR FOOT GENERAL 3V AP/LAT/OBL RT [[id number]] Order #: [id number] FUTUREPrescriptions as of 06/03/2018 Sig: PROMETHAZINE 25 [...] Take 10 mg by mouth as needed* [id number]* Take 1 tablet by mouth every * [...] Status:Closed by KETTY JIMENEZ on 06/03/18 Normal [facility] PROGRESSon 06-03-2018 Protein mass conc HNO ID: [id number] thor: Rafi (Rt) Shaynne Hilton: (none)Author Type: TechnicianType: Progress NotesFiled: 06/03/2018 10:32 AMNote Text: Radiology Service Progress NotePATIENT NAME: Lesa TorrezMRN: [id number] OF SERVICE: June 03, 2018TIME: 10:31 AMPATIENT IDENTITY VERIFICATION COMPLETED USING TWO (2) METHODS: Patientconfirmed name verbally and ID band matches..PATIENT GENDER DATA: Female. status: : NoBreastfeeding status: NO.PATIENT RELEVANT IMPLANT DATA REVIEWED: Not ApplicableRADIOLOGY DEPARTMENT: General X-ray: Exam(s) Completed: Lower ExtremityX-Ray(s): Foot, Right:PERIPHERAL IV DATA: Not applicableSIGNED BY: Daniel Hardy 2017 10:31 AM [facility] XR FOOT 3V AP/LAT/OBL RTon 0 [...] is slightly improved.IMPRESSION:Postsurgical changes right foot without complication.Jr. Java Developer: DAPHNE Transcribe Date/Time: Jun 03 2018 11:47ADictated by : SHANNON TA MDThis examination was interpreted and the report reviewed and electronically signed by: SHANNON TA MD on Jun 03 2018 11:48AM [id number] Normal [facility] PROGRESSon 06-02-2018 Protein mass conc HNO ID: [id number] thor: Elio Reidervice: (none)Author Type: PhysicianType: Progress [...] to call if any questions or problems interimlEio Chen DPM [facility] OV Office Visit (LOORRM) Balwinder TORREZ ([id number]) 1960 [facility] Time Provider Department05/15/18 2:30 PM ELIO CHEN During your visit today, we [...] right [M21.961]Order(s):XR FOOT GENERAL 3V AP/LAT/OBL RT [[id number]] Order #: [id number] FUTUREPrescriptions as of 05/15/2018 Sig: PROMETHAZINE 25 [...] Take 10 mg by mouth as needed* [id number]* Take 1 tablet by mouth every * [...] by ELIO CHEN DPM on 05/15/18 Normal [facility] PROGRESSon 05-15-2018 Protein mass conc HNO ID: [id number] thor: Ivelisse () Shyanne Joy: (none)Author Type: TechnicianType: Progress NotesFiled: 05/15/2018 2:08 PMNote Text: Radiology Service Progress NotePATIENT NAME: Lesa TorrezMRN: [id number] OF SERVICE: May 15, 2018TIME: 2:08 PMPATIENT IDENTITY VERIFICATION COMPLETED USING TWO (2) METHODS: Patientconfirmed name verbally and Date of .PATIENT GENDER DATA: Female. status: : NoBreastfeeding status: NO.PATIENT RELEVANT IMPLANT DATA REVIEWED: Not ApplicableRADIOLOGY DEPARTMENT: General X-ray: Exam(s) Completed: Lower ExtremityX-Ray(s): Foot, Right and Wt. Bearing:PERIPHERAL IV DATA: Not applicableSIGNED BY: RT VonJuvaleriy 2017 2:08 PM [facility] XR FOOT 3V AP/LAT/OBL RTon 0 [...] the forefoot.No other significant abnormality.IMPRESSION:Stable post operative examination.Jr. Java Developer: DAPHNE Transcribe Date/Time: May 15 2018 2:38PDictated by : ROD BRIONES MDThis examination was interpreted and the report reviewed and electronically signed by: ROD BRIONES MD on May 15 2018 2:50PM [id number] [facility] PROGRESSon 05-12-2018 Protein mass conc HNO ID: [id number] thor: Elio Reidervice: (none)Author Type: PhysicianType: Progress NotesFiled: 05/15/2018 2:41 [...] questions or problems interimChrisdillan Chen DPM [facility] CNOVon 05-07-2018 CNOV Office Visit (LOORRM) Balwinder TORREZ ([id number]) 1960 FDate Time Provider Department05/07/18 10:45 AM ELIO CHEN [...] to call if any questions or problems interimBLAINE HerndonMReferring Provider: SELF [200]Allergies As of Date: 05/07/2018 Noted Allergy ReactionBACTRIM (SULFAMETHOXAZOLE-TRIMETH* 015 4 - HivesDate Reviewed: 05/07/2018Reviewed by: [...] Take 10 mg by mouth as needed* [id number]* Take 1 tablet by mouth every * [...] Migraines [G43.909] Status:Closed by KETTY JIMENEZ on 05/07/18 Normal [facility] PROGRESSon 05-07-2018 Protein mass conc HNO ID: [id number] thor: Elio Lazaro: (none)Author Type: PhysicianType: Progress [...] any questions or problems interimChbennie Chen DPM [facility] Protein mass conc HNO ID: [id number] thor: Jamia Tinajero (Rt) Camille: (none)Author Type: TechnicianType: Progress NotesFiled: 05/07/2018 10:37 AMNote Text: Radiology Service Progress NotePATIENT NAME: Lesa JacksonbisiMRN: [id number] OF SERVICE: May 07, 2018TIME: 10:36 AMPATIENT IDENTITY VERIFICATION COMPLETED USING TWO (2) METHODS: Patientconfirmed name verbally and Date of .PATIENT GENDER DATA: Female. status: : NoBreastfeeding status: NO.PATIENT RELEVANT IMPLANT DATA REVIEWED: Not ApplicableRADIOLOGY DEPARTMENT: General X-ray: Exam(s) Completed: Lower ExtremityX-Ray(s): Foot, Right:PERIPHERAL IV DATA: Not applicableSIGNED BY: Jamia Waters, RTJuly 2017 10:36 AM [facility] XR FOOT 3V AP/LAT/OBL RTon 0 05-07-2018 [...] other significant change.IMPRESSION:Normal postoperative appearances of the forefoot.Jr. Java Developer: PSCB Transcribe Date/Time: May 07 2018 10:41ADictated by : CHARITO KAN MDThis examination was interpreted and the report reviewed and electronically signed by: CHARITO KAN MD on May 07 2018 10:44AM [id number] [facility] CNOVon 04-15-2018 CNOV Office Visit (LOORRM) Balwinder TORREZ ([id number]) 1960 FDate Time Provider Department04/15/18 8:45 AM ELIO CHEN LOORRTanvi During your visit today, [...] interimHandicap parking placard prescription dispensed upon requestGHAZAL Herndoneferring Provider: SELF [200]Allergies As of Date: 04/15/2018 Noted Allergy ReactionBACTRIM (SULFAMETHOXAZOLE-TRIMETH* 015 4 - HivesDate Reviewed: 04/15/2018Reviewed by: Ketty Robertson Clinical Tech - Fully AssessedReason for Visit: Post Op [174]Primary Visit Diagnosis:Hallux valgus with bunions of right foot [M20.11, M21.611] Other Visit Diagnoses:Hammer toe of right foot [M20.41] Contracted, joint, multiple sites [M24.50]Order(s):PARKING FOR HANDICAPPED [9998414] Order #: [id number] as of 04/15/2018 Sig: PROMETHAZINE 25 MG [...] Take 10 mg by mouth as needed* DOOPYKX-VQWLZYLIRSHOK-JJEGLVT* Take 1 tablet by mouth every * [...] by ELIO CHEN DPM on 04/15/18 [facility] PROGRESSon 04-15-2018 Protein mass conc HNO ID: [id number] thor: Elio Reidervice: (none)Author Type: PhysicianType: Progress [...] prescription dispensed upon requestChbennie Chen DPM [facility] ANES Ulices 04-06-2018 ANES POST HNO ID: [id number] thor: Vinnie LazoenService: AnesthesiologyAuthor Type: AnesthesiologistType: Anesthesia PostOpFiled: 04/06/2018 1:19 PMNote Text:POST ANESTHESIA EVALUATION NOTESERVICE DATE: 04/06/2018SERVICE TIME: 11:50 AMDOB: 1960Vitals: 04/06/1811Temp: 36.2 ?C (97.2 ?F) 36.2 ?C (97.2 ?F) 04/06/1811BP: 174/80 172/91 174/96 179/81 0604/06/1811Pulse: 67 67 63 65 04/06/1811Resp: 16 16 16 16 120 04/06/1811SpO2: 97% 100% 99% 98%Validated Vital Signs: YesPOST [...] 06, 2018 : 1:19 PM PAGER/CONTACT #: [facility] ANES PREOPon 04-06-2018 ANES PREOP HNO ID: [id number] thor: Vinnie Maldonadorvice: AnesthesiologyAuthor Type: AnesthesiologistType: Anesthesia PreOpFiled: 04/06/2018 7:16 [...] as needed. Mayrepeat in 2 hours if pxixveDpthprf-Yzhbgcjzxbjye-Bwuel ine (EXCEDRIN MIGRAINE) 250-250-65 mg pertablet Take 1 tablet by mouth every 6 hours as needed.naproxen sodium (ALEVE) 220 mg tablet Take 220 mg by mouth as needed.Current Facility-Administered Medications:lidocaine 10 mg/mL (1 %) 1-2 mg injection (XYLOCAINE) 0.1-0.2 mLINTRADERMAL PRN Laron (Res) Dawsonlactated ringers infusion 5-30 mL/hr INTRAVENOUS CONTINUOUS Laron (Res)DawsonceFAZolin 2 g in dextrose (iso-osmotic) 50 mL (ANCEF,KEFZOL) 2 gINTRAVENOUS Pre-Op Once Laron (Res) DawsonAllergies:ALLERGIESAllergen Reactions- Bactrim [Sulfametho* HivesDOS EXAM: Adequate NPO [...] April 06, 2018 : 7:15 AM CSN: [id number] [facility] BRIEF OP NOTon 04-06-2018 BRIEF OP NOT HNO ID: [id number] thor: Laron GarridoService: PodiatryAuthor Type: ResidentType: Brief Op NoteFiled: 04/06/2018 11:09 AMNote Text:BRIEF OP NOTELOG ID: [id number]/Procedure Date: 04/06/2018Incision/Procedure Start Time: 7:50 AMIncision Close/Procedure End Time: 10:54 AMSurgeon(s)/Proceduralist(s) and Commercial Technician(s):Surgeon(s) and Role: * Elio Garrido DPM EAU0Jvkdlbxbp(s): 1st MPJ fusion, PIPJ fusion 2,3,4, MPJ [...] 06, 2018 : 11:07 AM PAGER/CONTACT #: [facility] NURSING PROGon 04-06-2018 Protein mass conc HNO ID: [id number] Author: Zoila SalasRn) HENOK Hamilton Service: (none) Author Type: Registered Nurse Type: Nursing Progress Note Filed: 04/06/2018 12:02 PM Note Text: PT'S FRIEND HERE. PT GETTING DRESSED. [facility] Protein mass conc HNO ID: [id number] thor: Zoila [facility]) JERRI Hamiltonervice: (none)Author Type: Registered NurseType: Nursing Progress NoteFiled: 04/06/2018 11:50 AMNote Text:TOOK OVER CARE OF PATIENT. POST OP SHOE FITTED AND APPLIED. PT AWAKE.DENIES ANY COMPLAINTS. WAITING FOR PATIENT'S FRIEND TO ARRIVE TO TAKE HERHOME. [facility] Protein mass conc HNO ID: [id number] Author: Jailene SalasRn) HENOK Perez Service: (none) Author Type: Registered Nurse Type: Nursing Progress Note Filed: 04/06/2018 11:40 AM Note Text: Received report from elena cifuentes at [address] [facility] Protein mass conc HNO ID: [id number] thor: Elena Kendall) JERRI Cifuenteservice: (none)Author Type: Registered NurseType: Nursing Progress NoteFiled: 04/06/2018 11:23 AMNote Text: Nursing Progress NotePatient Name: Lesa TorrezMRN: [id number] Location: L727-Zoqobt/R524-Fswtsa Daily Note:Handoff report given to Jailene Perez RN. Pt. Restingcomfortably. Painfree. Dr. Chen at bedside. vss. DSD intact toright foot, elevated on pillow with ice pack.This note was completed by: Elena Cifuentes RN [facility] OPERATIVE NOon 04-06-2018 OPERATIVE NO HNO ID: [id number] thor: Elio Reidervice: PodiatryAuthor Type: PhysicianType: Operative ReportFiled: 06/01/2018 3:13 PMNote Text:[facility] [address] [place]OPERATIVE REPORTNAME: LESA TORREZ [facility] #: [id number]: 04/06/2018 AGE: 57SURGEON 1: RADHA Herndon 2:RACE ENGINE BUILDER 1: Carl Garrido D.P.M.RACE ENGINE BUILDER 2:OPERATION: 1. First MPJ arthrodesis, right foot (CPT 45324). 2. Weilshortening osteotomy, second metatarsal, right foot (CPT 76416). 3.Capsulotomy second, third, and fourth MPJ, right foot (CPT 51366). 4.Hammertoe repair with pinning digits 2, 3, and 4, right foot (CPT 68556).ANESTHESIA: MAC with a local field block utilizing [...] INDICATIONS: This 57-year-old female was last seen inour office on January 06, 2018, for a final [...] medial aspect of the first MPJ to loom fixer helper inarthrodesis. The first MPJ capsule was [...] was thenreapproximated utilizing 4-0 Polysorb in an ryij-plj-xfdq type fashion.The skin was then reapproximated utilizing [...] was then reapproximated utilizing 4-0Polysorb in an gafd-adj-qdwz fashion. The skin was then reapproximatedutilizing 4-0 [...] operating room today under my direct supervision paslgkde-oj-xtfk.START TIME: 07:50.END TIME: 10:50.HEMOSTASIS: Right pneumatic ankle tourniquet at 250 mmHg.MATERIALS: Two SBi 3.0-mm cannulated screws, one VariAx plate and four2.7-mm locking screws, two 0.062 K-wires and one 0.054 K-wire, 3-0 and4-0 Polysorb, and 4- 0 nylon suture.PROPHYLAXIS: 2 g of Ancef IV piggyback preop.ESTIMATED BLOOD LOSS: Minimal.DRAINS: None.SPECIMENS: None.COMPLICATIONS: None.CONDITION: Satisfactory.Elio Chen [facility]WH:[id number] #: [id number]: 04/06/2018 10:29:16 cc: [facility] PROGRESSon 04-06-2018 Protein mass conc HNO ID: [id number] thor: Laron (Res) DawsonService: PodiatryAuthor Type: ResidentType: Progress NotesFiled: 04/06/2018 7:10 [...] JacksonmanDATE: April 06, 2018 : 7:09 AM [facility] PT EDon 04-06-2018 PT ED HNO ID: [id number] thor: Jailene SalasRn) Danny Perez: (none)Author Type: Registered NurseType: Patient EducationFiled: 04/06/2018 [...] By: Jailene Perez RN In Department: AMBULATORYSURGERY [facility] PT ED HNO ID: [id number] thor: Pastora Kendall) Flora, RNService: (none)Author Type: Registered NurseType: Patient EducationFiled: 04/06/2018 7:29 AMNote Text:PRE OP LEARNING ASSESSMENTPROCEDURE/SURGERY: right footREADINESS TO LEARNCOGNITIVE ABILITY: Alert and orientedMOTIVATION TO LEARN: EagerFAMILY SUPPORT: High - Very involved in pt carePATIENT LEARNS BEST BY: Multiple MethodsFACTORS AFFECTING LEARNING: NonePHYSICAL LIMITATIONS AFFECTING LEARNING: NoneElectronically Signed By: Pastora Hines RN In Department: AMBULATORYSURGERY [facility] NURSING PROGon 03-27-2018 Protein mass conc HNO ID: [id number] thor: Katharine Zavala (Rn) JERRI Winchesterervice: (none)Author Type: Registered NurseType: Nursing Progress NoteFiled: 03/27/2018 10:58 AMNote Text:PACC Nurse Progress NoteHistory AND Physical:PACC Visit Date: 03/26/18Original HANDP Date: N/AED visit Date: N/AOutside HANDP Scanned Date: N/ALabs Within Last 6 Months:N/AImaging Within Last 12 Months:X-ray 01/06/18Cardiac Testing:N/ALast Menstrual Period:LMP Date: N/APostmenopausal >1yr: Yes,S/P Hysterectomy: NABMI Percentile (PEDS):N/ARisk Assessment:N/AAnesthesia Review:N/ANarrative:BMI 34Pre-op Considerations:N/AChart Check:Diego Winchester RNMay 2017 10:57 AM [facility] HISTORY PHYSICALon 8 HISTORY PHYSICAL HNO ID: [id number] thor: Kady (Burn Table Operator) KershawService: (none)Author Type: Nurse PractitionerType: HANDPFiled: 03/26/2018 2:58 PMNote Text:HISTORY AND PHYSICAL EXAMINATIONSERVICE DATE: 03/26/2018SERVICE TIME: 2:34 PMPRIMARY CARE PHYSICIAN: ALVAREZ Gonzalez FOR VISIT:Lesa Torrez is a 57 year old female who is scheduled for [facility] at [facility] of Dr. Elio Chen for consultation. My [...] needed. Mayrepeat in 2 hours if needed JmwOimdwau-Sqmlxmlbmrpkj-Sykawsxt (EXCEDRIN MIGRAINE) 250-250-65 mg pertablet Take 1 [...] 2018 : 2:34 PM PAGER/CONTACT #: [facility] HOSP 01-14-2018 HOSP Patient:Darryn Torrez ElizabetMRN: Height:5' 0 (1.524 m)Weight:175 lb (79.379 kg)Outpatient Medications as of 04/06/18:tiZANidine (ZANAFLEX) 4 mg tabletbisoprolol-hydrochlorothiaz haroldo (ZIAC) 10-6.25 mg per tabletcalcium, elemental, tabmultivitamin (DAILY MULTIPLE) tabletloratadine (CLARITIN) 10 mg tabletpolyethylene glycol 3350 (MIRALAX) 17 gram packetrizatriptan (MAXALT) 10 mg rfmvsdTembdwx-Njtwivspiffft-Efinv ine (EXCEDRIN MIGRAINE) 250-250-65 mg per tabletnaproxen sodium (ALEVE) 220 mg tabletAdmission/Clinic Administered Medications as of 04/06/18:lidocaine 10 mg/mL (1 %) 1-2 mg injection (XYLOCAINE)lactated ringers infusionceFAZolin 2 g in dextrose (iso-osmotic) 50 mL (ANCEF,KEFZOL)Problem List:Hallux abductovalgus with bunions [M20.10, M21.619]Hammertoe [M20.40]Hav (hallux abducto valgus), right [M20.11]Deformity of metatarsal, right [M21.961]Contracted, joint [M24.50]Hammer toe of right foot [M20.41]HTN (hypertension) [I10]Migraines [G43.909]Allergies:Bactrim [Sulfamethoxazole-Trimethoprim]Da te Verified: 03/26/18Lab ValuesNo results within the last 30 days for the following basenames: K,HCTNo progress notes entered within the past 30 days [facility] CNOVon 01-06-2018 CNOV Office Visit (LOORRM) Balwinder TORREZ ([id number]) 1960 FDate Time Provider Department01/06/18 3:45 PM ELIO CHEN During your visit today, we recorded the following information about you:Elio Chen DPM 01/06/2018 10:27 PM Unsigned Artisan Plasterer [facility] [address] [place], [place] [address] CLINIC NOTE Department of Orthopaedics - William Chen D.P.M.NAME: LESA TORREZ NO.: [id number] OF SERVICE: 01/06/2018SUBJECTIVE: The patient is seen [...] Iadvised we can perform it at the [facility] under MAC with a local fieldblock. [...] patient would like to proceed. We will scheduleraul Mc.5. I advised to call if any questions or problems in the interim.Dictated By: Elio Chen D.P.M.Date Dictated: 01/06/2018Date Typed: kateyu 01/06/2018JUWAN# [id number] L Christine Thurston 01/14/2018 9:12 AM SignedAddended by: LAWRENCE PHELPS on: 01/14/2018 09:12 AM Modules accepted: OrdersTranscription:Transcribed Clinic Note (mau) ID: [id number]: ELIO CHEN * * * This document has not been signed * * * * * * DRAFT COPY. THIS DOCUMENT IS NOT AVAILABLE FOR PATIENT CARE * * *Document text: [facility] [address] [place], [place] [address] CLINIC NOTE Department of Orthopaedics - Waredoretha Chen D.P.M.NAME: LESA TORREZ NO.: [id number] OF SERVICE: 01/06/2018SUBJECTIVE: The patient is seen [...] advised we can perform it at the [facility] under MAC witha local field block. [...] By: Jake Pena.P.M.Date Dictated: 01/06/2018Date Typed: girish 01/06/2018JOB# [id number] document [id number] only ------Referring Provider: SELF [200]Allergies As of Date: 01/06/2018 Noted Allergy ReactionBACTRIM (SULFAMETHOXAZOLE-TRIMETH* 015 4 - HivesDate Reviewed: 01/06/2018Reviewed by: Ketty Reynolds Tech - Fully AssessedReason for Visit: Pain (foot) [760]Primary Visit Diagnosis:Hallux valgus with bunions of right foot [M20.11, M21.611] Other Visit Diagnoses:Hammer toe of right foot [M20.41] Contracted, joint, multiple sites [M24.50] Metatarsal deformity, right [M21.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]Order(s):SURGICAL REQUEST - ELECTIVE [[id number]] Order #: [id number]: 1Prescriptions as of 01/06/2018 Sig: RIZATRIPTAN 10 [...] Take 10 mg by mouth as needed* GMBBBHX-COSPJBCZVRXPY-JBSAAJZ* Take 1 tablet by mouth every * NAPROXEN SODIUM 220 MG TABLET Take 220 mg by mouth as neede*Medication notes this encounter RIZATRIPTAN 10 MG DISINTEGRATING TABLET >> CPM Braxis 01/06/2018 3:56 PM >> [employer] KETTY Aniya Jan 06, 2018 3:56 PM Received from: External Pharmacy BISOPROLOL 10 MG-HYDROCHLOROTHIAZIDE 6.25 MG TABLET >> CPM Braxis 01/06/2018 3:56 PM >> [employer] KETTY Aniya Jan 06, 2018 3:56 PM Received from: External PharmacyProblem List As Of Date 01/06/2018 Noted Resolved Hallux abductovalgus with bunions [M20.10, M21.*INVALID FOR* Erinertoe [M20.40] INVALID FOR* Status:Closed by ELIO CHEN DPM on 01/06/18 [facility] PROGRESSon 01-06-2018 Protein mass conc HNO ID: [id number] thor: Jaqueline (Rt) MalvindellService: (none)Author Type: TechnicianType: Progress NotesFiled: 01/06/2018 3:29 PMNote Text: Radiology Service Progress NotePATIENT NAME: Lesa TorrezMRN: [id number] OF SERVICE: January 06, 2018TIME: 3:29 PMPATIENT IDENTITY VERIFICATION COMPLETED USING TWO (2) METHODS: Patientconfirmed name verbally and Date of .PATIENT GENDER DATA: Female. status: : NoBreastfeeding status: NO.PATIENT RELEVANT IMPLANT DATA REVIEWED: YesRADIOLOGY DEPARTMENT: General X-ray: Exam(s) Completed: Lower ExtremityX-Ray(s): Foot, Right and Wt. Bearing:PERIPHERAL IV DATA: Not applicableSIGNED BY: Jaqueline Spaulding, RTGerman [facility] 2017 3:29 PM [facility] XR FOOT 3V AP/LAT/OBL RTon 0 [...] abnormality.IMPRESSION:Diffuse deformities of the second through small toes.Jr. Java Developer: PSCB Transcribe Date/Time: Jan 06 2018 3:32PDictated by : CHARITO KAN MDThis examination was interpreted and the report reviewed and electronically signed by: CHARITO KAN MD on Jan 06 2018 3:34PM [id number] [facility] Encounters Encounter Date Encounter Type Care Provider Facility Start: 03-21-2026 ambulatory Clarisa Torres Facility: [facility] Start: 03-22-2025 End: 03-22-2025 Lab Drop off Clarisa Torres [facility] Start: 03-22-2025 End: 03-22-2025 ambulatory Clarisa L Brian Facility:[facility] Start: 03-17-2025 End: 03-17-2025 ambulatory [facility] L [facility] Start: 03-04-2025 End: 03-04-2025 ambulatory Clarisa L Brian [facility] Start: 01-06-2025 End: 01-06-2025 ambulatory Clarisa L Brian [facility] Start: 11-24-2024 End: 11-24-2024 ambulatory Clarisa L Brian Facility:[facility] Start: 07-27-2024 End: 07-27-2024 ambulatory Clarisa L Brian Facility:[facility] Start: 05-20-2024 End: 05-20-2024 [facility] Work Phone: Start: 05-20-2024 End: 05-20-2024 Departed Referred DPTanvi Fermin [facility] Work Phone: [facility] Start: 11-04-2022 End: 11-04-[address] DELON KNOX Facility:[facility] Start: 08-28-2022 End: 10-12-[address] DELON KNOX Facility:[facility] Start: 07-09-2022 End: 07-10-[address] DELON KNOX Facility:[facility] Start: 06-19-2022 Encounter for genera l adult medical examination without abnormal findings DR DELON KNOX [facility] Start: 06-18-2022 End: 06-19-[address] DELON KNOX Facility:[facility] Start: 06-18-2022 End: 06-19-2022 Encounter for general adult medical examination without abnormal findings DR DELON KNOX Facility:[facility] Start: 03-08-2022 End: 03-09-[address] DELON KNOX Facility:[facility] Start: 11-22-2021 End: 11-23-[address] DELON KNOX Facility:[facility] Start: 06-03-2018 End: 06-03-2018 Patient encounter ELIO CHEN [facility] Start: 05-15-2018 End: 05-19-2018 Patient encounter ELIO CHEN [facility] Start: 05-07-2018 End: 05-11-2018 Patient encounter ELIO CHEN [facility] Start: 05-07-2018 End: 05-07-2018 Patient encounter ELIO CHEN [facility] Start: 04-15-2018 End: 04-15-2018 Patient encounter ELIO CHEN [facility] Start: 04-06-2018 Patient encounter ELIO DEGROOT [facility] Start: 03-26-2018 End: 03-26-2018 Patient encounter ELIO CHEN [facility] Start: 01-06-2018 End: 01-06-2018 Patient encounter ELIO CHEN [facility] Procedures Date Procedure Procedure Detail Performing Clinician Start: 01-22-2012 Colonoscopy Clarisa Schwa b Hand repair Clarisa Brian Comment on above: torn ligament on rig ht hand repaired Injury of foot (disorder) Elizabet di Brian Comment on above: Multiple foot surger ies on b/l feet. Laparoscopic cholecystostomy Clarisa Brian Surgery (qualifier value) Elizabet di Brian Comment on above: numerous on the foot Immunizations Immunization Date Immunization Notes Care Provider Tiffanie benjamin 09-17-2024 influenza virus vaccine, unspecified formulation Clarisa Brian [facility] 08-24-2021 SARS-CoV-2 (COVID-19 ) mRNA-1273 vaccine Clarisa Brian [facility] 11-30-2020 SARS-CoV-2 (COVID-19 ) mRNA-1273 vaccine Clarisa Brian [facility] 11-01-2020 SARS-CoV-2 (COVID-19 ) mRNA-1273 vaccine Clarisa Brian [facility] 08-16-2019 influenza virus vaccine, unspecified formulation Clarisa Torres [facility] 08-16-2019 influenza, unspecifi ed formulation Clarisa Torres [facility] Payers Date Payer Category Payer Unknown [id number] 2025 Medicare [id number] 2025 Medicare [id number] 2024 Self-pay 2019 Unknown [id number] 1961 Unknown [id number] 1960 Unknown [id number] 2.16.84 0.1.067849.3.579.2.593 1960 Unknown [id number] 2.16.84 0.1.872673.3.579.2.593 1960 Unknown [id number] 2.16.84 0.1.984638.3.579.2.593 1960 Unknown [id number] 2.16.84 0.1.398438.3.579.2.593 1960 Unknown [id number] 2.16.84 0.1.818093.3.579.2.593 1960 Unknown [id number] 2.16.84 0.1.041834.3.579.2.593 1960 Unknown [id number] 2.16.8 40.1.164388.3.579.2.727 1960 Unknown [id number] 2.16.8 40.1.032931.3.579.2.727 1960 Unknown [id number] 2.16.8 40.1.358675.3.579.2.727 1960 Unknown [id number] 2.16.8 40.1.861929.3.579.2.727 1960 Unknown [id number] 2.16.8 40.1.641355.3.579.2.727 1960 Unknown [id number] 2.16.8 40.1.177566.3.579.2.727 1960 Unknown [id number] 2.16.8 40.1.495174.3.579.2.727 1960 Unknown [id number] 2.16.8 40.1.574899.3.579.2.727 Unknown [id number] 2.16.8 40.1.655507.3.579.2.531 Unknown [id number] Social History Date Type Detail Facility Tobacco smoking stat [facility] Unknown if ever smoked [facility] Work Phone: Start: 1960 Sex Assigned At Female F [facility] Start: 03-04-2025 Tobacco smoking status Never s moked tobacco (finding) [facility] Sexual Orientation [facility] Sex Assigned At Female [facility] Sex Female (finding) [facility] Clinical Note 03-22-2025 Note Date & Type Note Facility 03-22-2025 Note Nurse Consultation N ote Reason for Visit patient came IO for lab draw Assessment/Plan 1. Anemia (D64.9: Anemia, unspecified) 2. Actinic keratosis (L57.0: Actinic keratosis) Medications bisoprolol-hydrochlorothiazide 10 mg-6.25 mg Tab, See Instructions Claritin, Daily Diflucan 150 mg Tab, 1 tab(s), Oral, Once fluticasone Nasal 0.05 mg/inh Severy, See Instructions meclizine 25 mg Tab, 25 mg= 1 tab(s), Oral, TID, PRN MiraLax ondansetron 4 mg Dis Tab, 4 mg= 1 tab(s), Oral, q6hr, PRN Ozempic 8 mg/3 mL (2 mg dose) subcutaneous solution, 2 mg, SubCutaneous, qWeek, 1 refills rizatriptan 10 mg Dis Tab, See Instructions Allergies Bactrim (Unknown) Immunizations Vaccine Date Status influenza virus vaccine, inactivated 09/17/2024 Recorded SARS-CoV-2 (COVID-19) mRNA-1273 vaccine 08/24/2021 Recorded SARS-CoV-2 (COVID-19) mRNA-1273 vaccine 11/30/2020 Recorded SARS-CoV-2 (COVID-19) mRNA-1273 vaccine 11/01/2020 Recorded influenza, unspecified formulation 08/16/2019 Given influenza virus vaccine, inactivated 08/16/2019 Recorded [facility] Clinical Note 03-17-2025 Note Date & Type Note Facility 03-17-2025 Note Patient Education Emergency Medicine Heart Attack A heart attack occurs when blood and oxygen supply to the heart is cut off. A heart attack can cause damage to the heart that cannot be fixed. A heart attack is also called a myocardial infarction, or VA. If you think you are having a heart attack, do not wait to see if the symptoms will go away. Get medical help right away. What are the causes? This condition may be caused by: ??? A fatty substance (plaque) in the blood vessels (arteries). This can block the flow of blood to the heart. ??? A blood clot in the blood vessels that go to the heart. The blood clot blocks blood flow. ??? An abnormal heartbeat. ??? Some diseases, such as problems in red blood cells (anemia)orproblems in breathing (respiratory failure). ??? Tightening (spasm) of a blood vessel that cuts off blood to the heart. ??? A tear in a blood vessel of the heart. Other causes may include: ??? Using drugs such as cocaine or methamphetamine. ??? Low blood pressure. What increases the risk? Aging. The risk gets higher as you get older. ??? Having a personal or family history of chest pain, heart attack, stroke, or narrowing of the arteries in the legs, arms, head, or stomach (peripheral vascular disease). ??? Having taken chemotherapy or immune-suppressing medicines. ??? Being male. ??? Being overweight or obese. ??? Having any of these conditions: ? High blood pressure. ? High cholesterol. ? Diabetes. ??? Making lifestyle choices such as: ? Drinking too much alcohol. ? Not getting regular exercise. ? Smoking. What are the signs or symptoms? Chest pain. It may feel like: ? Crushing or squeezing. ? Tightness, pressure, fullness, or heaviness. ??? Pain in the arm, neck, jaw, back, or upper body. ??? Heartburn. ??? Upset stomach (indigestion). ??? Shortness of breath. ??? Feeling like you may vomit (nauseous). ??? Cold sweats. ??? Sudden light-headedness, dizziness, or passing out. ??? Feeling tired. How is this treated? A heart attack must be treated as soon as possible. Treatment may include: ??? Medicines to: ? Break up or dissolve blood clots. ? Thin your blood and help prevent blood clots. ? Treat blood pressure. ? Improve blood flow to the heart. ? Reduce pain. ? Reduce cholesterol. ??? Procedures to widen a blocked artery and keep it open. ??? Open heart surgery. ??? Making your heart strong again (cardiac rehabilitation) through exercise, education, and counseling. Follow these instructions at home: Medicines ??? Take ltti-bij-zcdpskg and prescription medicines only as told by your doctor. ??? Do not take these medicines unless your doctor says it is okay: ? NSAIDs, such as ibuprofen, naproxen, or celecoxib. ? Any vitamins or supplements. ? Hormone replacement therapy that has estrogen with or without progestin. ??? If you are taking blood thinners: ? Talk with your doctor before taking any medicines that have aspirin or NSAIDs, such as ibuprofen. ? Take medicines exactly as told. Take them at the same time each day. ? Avoid doing things that could hurt or bruise you. Take action to prevent falls. ? Wear an alert bracelet or carry a card that shows you are taking blood thinners. Lifestyle ??? Do not smoke or use any products that contain nicotine or tobacco. If you need help quitting, ask your doctor. ??? Avoid secondhand smoke. ??? Exercise regularly. Ask your doctor about a cardiac rehab program. ??? Eat heart-healthy foods. Your doctor will tell you what foods to eat. ??? Stay at a healthy weight. ??? Learn ways to lower your stress level. ??? Do not use illegal drugs. Alcohol use ??? Do not drink alcohol if: ? Your doctor tells you not to drink. ? You are , may be , or are planning to become . ??? If you drink alcohol: ? Limit how much you have to: ? 0?1 drink a day for women. ? 0?2 drinks a day for men. ? Know how much alcohol is in your drink. In the [place] one drink equals one 12 oz bottle of beer (355 mL), one 5 oz glass of wine (148 mL), or one 1? oz glass of hard liquor (44 mL). General instructions ??? Work with your doctor to treat other problems you may have, such as diabetes or high blood pressure. ??? Get screened for depression. Get treatment if needed. ??? Keep your vaccines up to date. Get the flu shot (influenza vaccine) every year. ??? Keep all follow-up visits. Contact a doctor if: ??? You feel very sad. ??? You have trouble doing your daily activities. ??? You get light-headed or dizzy. Get help right away if: ??? You have sudden, unexplained discomfort in your chest, arms, back, neck, jaw, or upper body. ??? You have shortness of breath. ??? You have sudden sweating or clammy skin. ??? You feel like you may vomit or you vomit. ??? You fe (more content not included)... [facility] Evaluation + Plan note Note Date & Type Note Facility Evaluation + Plan note Future Appointments Appointment Date:03/21/2026 09:30:00 AM Scheduled Provider: Location:[facility] (formerly [facility]3] Appointment Type:FM Medicare Wellness Subsequent Diagnostic Tests PendingHCV Antibody RFX to Quant PCR 03/22/25 [facility] Evaluation note Note Date & Type Note Facility Evaluation note No assessment information availa [facility] Work Phone: Hospital course Narrative Note Date & Type Note Facility Hospital course Narrative No data available for this section [facility] Hospital Discharge instructions Note Date & Type Note Facility Hospital Discharge instructions No data available for this section [facility] Progress note Note Date & Type Note Facility Progress note No data available for this section [facility] Summary Purpose Family History No Family History Records FoundNo Family History Records FoundNo Family History Records Found No data available for this section No Family History Records FoundNo Family History Records FoundNo Family History Records FoundNo Family History Records FoundNo Family History Records FoundNo Family History Records FoundNo Family History Records Found Advance Directives No Advanced Directives Records Found Advance Directive Response Recorded Date/ Time Advance Directives No May 21 11:35am Additional Source Comments INFORMATION SOURCE (unrecogn ized section and content) DATE CREATED AUTHOR 06/17/2018 [facility] DATE CREATED AUTHOR AUTHOR'S ORGANIZ ATION 11/04/2022 [facility] DATE CREATED AUTHOR AUTHOR'S ORGANIZ ATION 05/25/2024 [facility] DATE CREATED AUTHOR AUTHOR'S ORGANIZ ATION 03/24/2025 [facility] DATE CREATED AUTHOR AUTHOR'S ORGANIZ ATION 03/29/2025 [facility] DATE CREATED AUTHOR AUTHOR'S ORGANIZ ATION 03/30/2025 [facility] Care Teams (unrecognized sec tion and content) Team Status: Inactive Member Role Status Dates Ayana Gonzalez DPM MS Attending Provider Active Start: May 20, 2024 End: May 20, 2024 Goals (unrecognized section and content) Goals may be documented in a n alternate section No data available for this section FOR RECORDS PERTAINING TO PATIENTS WHO ARE [...] BE BASED ON THE PRIMARY CLINICAL RECORDS. [facility] [employer] (Former[employer] [facility]. provides no warranty or guarantee of the accuracy or completeness of information in this document.
--- NOTE | 2025-04-01 07:45 | MM_ITS ---
Patient Name: MEGHA CACERES MR#: [id number] : 1960 Exam Date: 04/01/2025 Ordering Doctor: CHARLES COATES . RADIOLOGY REPORT PROCEDURE: MM TOMOSYNTHESIS SCREENING BI COMPARISON: MG MAMM SCREEN 3D OANH CAD, 07/09/2022. MG MAMM SCREEN 3D OANH CAD, 05/30/2021. MG MAMM SCREEN OANH W CAD, 10/06/2018. MG MAMM OANH SCRN W CAD DIG, 03/15/2014. INDICATIONS: Screening Calculator Name NCI Breast Cancer Risk Assessment Tool 5 Year Breast Cancer Risk 1.90% Lifetime Breast Cancer Risk 6.70% Personal Breast Cancer No Personal Ovarian Cancer No Treatments None Family Cancers None LOCATION: [facility] BREAST COMPOSITION: The breasts are heterogeneously dense,which may obscure small masses. FINDINGS: RIGHT BREAST: No significant suspicious finding. LEFT BREAST: No significant suspicious finding. DIAGNOSTIC CATEGORY 1--NEGATIVE. RECOMMENDATIONS: ROUTINE MAMMOGRAM AND CLINICAL EVALUATION IN 12 MONTHS. PLEASE NOTE: A NORMAL MAMMOGRAM DOES NOT EXCLUDE THE POSSIBILITY OF BREAST CANCER. A CLINICALLY SUSPICIOUS PALPABLE LUMP SHOULD BE BIOPSIED. Dictated by: Raul Li MD on 04/01/2025 at 10:09 Approved by: Raul Li MD on 04/01/2025 at 10:11
== END 2025-04-01 07:19 | disposition home or self-care (01) ==
LOC: MAMMO 07:18
PROVIDERS: PCP Nurse Practitioner; Visit Provider Nurse Practitioner
DX: Z12.31 Encounter for screening mammogram for malignant neoplasm of breast (principal); E28.39 Other primary ovarian failure
CPT/HCPCS: 77063; 77067; 77080